=== PATIENT | male | born 1995 | race Caucasian/White ===

== ENCOUNTER 2017-01-24 22:02 | Emergency (ER) | payer OTHER ==
[2017-01-24 22:08] VITALS: RESP 18
--- NOTE | 2017-01-24 22:29 | ED ---
General Adult HPI - General Chief complaint: Recheck/Abnormal Lab/Rx Stated complaint: RAQUEL Time Seen by Provider: 01/24/17 22:09 Source: patient, RN notes reviewed Mode of arrival: wheelchair Limitations: no limitations - History of Present Illness Initial comments: 21-year-old male presents emergency Department chief complaint of feeling abnormal. Patient states that he smoked marijuana tonight and Since she's had an abnormal feeling. Patient states that he also drinks alcohol with this. Patient states he has smoked marijuana multiple times is never made him feel this way. Patient states just feels as if something is wrong. Patient denies any actual pain. Patient states he is not having any symptoms at time. Patient denies any recent fever, chills, shortness of breath, chest pain, back pain, abdominal pain, nausea vomiting, numbness or tingling, dysuria or hematuria, constipation or diarrhea, headaches or visual changes, or any other current symptoms. - Related Data Home Medications Medication Instructions Recorded Confirmed No Known Home Medications [No 01/24/17 01/24/17 Known Home Medications] Allergies Allergy/AdvReac Type Severity Reaction Status Date / Time No Known Allergies Allergy Verified 01/24/17 22:08 Review of Systems ROS Statement: Those systems with pertinent positive or pertinent negative responses have been documented in the HPI. ROS Other: All systems not noted in ROS Statement are negative. Past Medical History Past Medical History: No Reported History History of Any Multi-Drug Resistant Organisms: None Reported Past Surgical History: Orthopedic Surgery Additional Past Surgical History / Comment(s): ankle Past Psychological History: Depression Smoking Status: Current every day smoker Past Alcohol Use History: Rare Past Drug Use History: Marijuana General Exam Limitations: no limitations General appearance: alert, in no apparent distress Head exam: Present: atraumatic, normocephalic, normal inspection ENT exam: Present: normal exam, mucous membranes moist Neck exam: Present: normal inspection. Absent: tenderness, meningismus, lymphadenopathy Respiratory exam: Present: normal lung sounds bilaterally. Absent: respiratory distress, wheezes, rales, rhonchi, stridor Cardiovascular Exam: Present: regular rate, normal rhythm, normal heart sounds. Absent: systolic murmur, diastolic murmur, rubs, gallop, clicks Neurological exam: Present: alert, oriented X3 Psychiatric exam: Present: normal affect, normal mood Skin exam: Present: warm, dry, intact, normal color. Absent: rash Course Vital Signs 01/24/17 22:05 Temperature 97.0 F L Pulse Rate 79 Respiratory 18 Rate Blood Pressure 131/83 O2 Sat by Pulse 100 Oximetry Medical Decision Making - Medical Decision Making 21-year-old male presents for being high on marijuana. This time patient's drug screen is negative for marijuana. Patient is most likely having adverse reaction to the eye. At this time we did discuss he'll be discharged home. We discussed return parameters and follow-up. We did spiritual counselor on drug abuse. Patient stated he understood he is negative plan. He will be discharged. - Lab Data Lab Results 01/24/17 Range/Units 22:37 Urine Opiates Screen Not Detected (NotDetected) Ur Oxycodone Screen Not Detected (NotDetected) Urine Methadone Screen Not Detected (NotDetected) Ur Propoxyphene Screen Not Detected (NotDetected) Ur Barbiturates Screen Not Detected (NotDetected) U Tricyclic Antidepress Not Detected (NotDetected) Ur Phencyclidine Scrn Not Detected (NotDetected) Ur Amphetamines Screen Not Detected (NotDetected) U Methamphetamines Scrn Not Detected (NotDetected) U Benzodiazepines Scrn Not Detected (NotDetected) Urine Cocaine Screen Not Detected (NotDetected) U Marijuana (THC) Screen Detected H (NotDetected) Disposition Clinical Impression: Cannabis abuse Disposition: HOME SELF-CARE Condition: Stable Instructions: Cannabis Abuse (ED) Additional Instructions: Please use medication as discussed. Please follow up with family doctor if symptoms have not improved over the next two days. Please return to the emergency room if your symptoms increase or worsen or for any other concerns. Referrals: Brigette Glover MD [STAFF PHYSICIAN] - 1-2 days Time of Disposition: 23:20
[2017-01-24 23:28] VITALS: BP 144/87; PULSE 81; TEMP 98.4
== END 2017-01-24 23:29 | disposition home or self-care (01) ==
LOC: EC 22:02
DX: F12.10 Cannabis abuse, uncomplicated (principal); F17.200 Nicotine dependence, unspecified, uncomplicated
CPT/HCPCS: 80306; 99284

== ENCOUNTER 2017-03-01 19:17 | Emergency (ER) | payer OTHER ==
[2017-03-01 19:32] VITALS: BP 127/92; PULSE 63; RESP 18; TEMP 99
[2017-03-01] MEDS ORDERED: SODIUM CHLORIDE 0.9% 1,000 ML IV ONE (19:58)
[2017-03-01] MEDS ORDERED: LORazepam 2 MG/ML SYRINGE IV STA (19:58)
[2017-03-01] MEDS ORDERED: MAG HYDROX/AL HYDROX/SIMETH 30 ML CUP PO PRN (19:58)
--- NOTE | 2017-03-01 20:02 | ED ---
Chest Pain HPI - General Chief Complaint: Chest Pain Stated Complaint: Anxiety Source: patient Mode of arrival: EMS Limitations: no limitations - History of Present Illness Initial Comments: Patient is a 22-year-old male who presents for evaluation for acute chest pain, shortness of breath, nausea, tingling in his upper charities bilaterally. Past medical history as below. Patient states that he's been having several episodes of this for some time now. He does not have a primary care physician which she follows up with. He does not take any medications at home. He describes chest pain as a sharp pain. At the same time he had shortness of breath and difficulty breathing. His significant other at bedside states that he looked like he was having difficulty breathing. Similar to previous episodes in the past but this one is worse. He states that he feels a little bit better upon arrival to the emergency department. No recent long distance travel. No history of DVTs or pulmonary embolisms. No family history of a history of clotting disorders. He smokes cigarettes daily. Also smokes marijuana. No IV drug use. At this time he denies fever, chills, headache and changes of vision, URI symptoms, vomiting, diarrhea, pain or burning with urination. - Related Data Home Medications Medication Instructions Recorded Confirmed No Known Home Medications [No 01/24/17 03/01/17 Known Home Medications] Allergies Allergy/AdvReac Type Severity Reaction Status Date / Time No Known Allergies Allergy Verified 03/01/17 19:32 Review of Systems ROS Statement: Those systems with pertinent positive or pertinent negative responses have been documented in the HPI. ROS Other: All systems not noted in ROS Statement are negative. Past Medical History Past Medical History: No Reported History Additional Past Medical History / Comment(s): anxiety, adhd History of Any Multi-Drug Resistant Organisms: None Reported Past Surgical History: Orthopedic Surgery Additional Past Surgical History / Comment(s): ankle Past Psychological History: Depression Smoking Status: Current every day smoker Past Alcohol Use History: Rare Past Drug Use History: Marijuana General Exam Limitations: no limitations General appearance: alert, in no apparent distress, other (No acute distress. Nontoxic appearing) Head exam: Present: atraumatic, normocephalic, normal inspection Eye exam: Present: normal appearance, PERRL, EOMI. Absent: scleral icterus, conjunctival injection, periorbital swelling ENT exam: Present: normal exam, mucous membranes moist Neck exam: Present: normal inspection. Absent: tenderness, meningismus, lymphadenopathy Respiratory exam: Present: normal lung sounds bilaterally, other (Clear bilaterally without wheezes rales or rhonchi. No conversational dyspnea. No hypoxia. No tachypnea.). Absent: respiratory distress, wheezes, rales, rhonchi , stridor Cardiovascular Exam: Present: regular rate, normal rhythm, normal heart sounds. Absent: systolic murmur, diastolic murmur, rubs, gallop, clicks GI/Abdominal exam: Present: soft, normal bowel sounds. Absent: distended, tenderness, guarding, rebound, rigid Extremities exam: Present: normal inspection, full ROM, normal capillary refill. Absent: tenderness, pedal edema, joint swelling, calf tenderness Back exam: Present: normal inspection Neurological exam: Present: alert, oriented X3, CN II-XII intact Psychiatric exam: Present: normal affect, normal mood Skin exam: Present: warm, dry, intact, normal color. Absent: rash Course Vital Signs 03/01/17 19:28 Temperature 99 F Pulse Rate 63 Respiratory 18 Rate Blood Pressure 127/92 O2 Sat by Pulse 98 Oximetry Chest Pain [facility] 1945: Patient is a 22-year-old male percents for evaluation for chest pain, tingling in his upper extremities, wheeziness was stomach, shortness of breath. Has had episodes of this in the past. States that when he has been evaluated in the past nothing he has been wrong. He has never had a formal workup before in the past. PERC negative. However, the patient is very concerned. Requesting blood work and further investigation. Will order basic labs with a syncopal troponin, d-dimer, EKG, chest x-ray, Maalox, 1 mg IV Ativan. 2014: Reviewed EKG. Normal sinus rhythm at 60. AR 184. QRS 112. QTc 424. First-degree AV block. No STEMI. No previous EKGs for comparison. Awaiting labs. 2144: Reviewed laboratory studies. Within normal limits aside of mild acute kidney injury. Received IV fluids. Reevaluated the patient and he states that his chest pain is completely resolved. He states he feels more relaxed and comfortable discharge home. Patient is a low risk chest pain. His heart score is 0. VSS. Encouraged close follow-up with his primary care physician. Possibility of further testing. At this time, do not feel comfortable discharging him home with any anxiolytics. Encouraged him to send a dark room and deep breathing if he feels anxious. Voiced understanding. Discussed specific signs and symptoms on when to return to the emergency department for further evaluation. Comfortable discharge home and will follow-up. Disposition Clinical Impression: Chest pain Disposition: HOME SELF-CARE Condition: Good Instructions: Chest Pain (ED), Anxiety (ED) Referrals: None,Stated [Primary Care Provider] - 1-2 days Merrill Clark MD [REFERRING] - 1-2 days
[2017-03-01 20:27] LABS: Basophils % (A) 1 %; CH 33.2; CHCM 35.7; Eosinophils # (A) 0.1 k/uL (0-0.7); Eosinophils % (A) 2 %; HCT 46.3 % (39.0-53.0); HGB 15.9 gm/dL (13.0-17.5); Luc # (Auto) 0.11; Luc % (Auto) 2; Lymphocytes # (A) 2.2 k/uL (1.0-4.8); Lymphocytes % (A) 36 %; MCHC 34.3 g/dL (31.0-37.0); MCV 93.3 fL (80.0-100.0); Mean Platelet Volume 7.6; Monocytes # (A) 0.4 k/uL (0-1.0); Monocytes % (A) 6 %; Neutrophils # (A) 3.2 k/uL (1.3-7.7); Neutrophils % (A) 54 %; RBC 4.96 m/uL (4.30-5.90); RDW 13.9 % (11.5-15.5); WBC (Perox) 5.85
[2017-03-01 20:37] LABS: ALT 27 U/L (21-72); AST 26 U/L (17-59); Alkaline Phosphatase 75 U/L (38-126); Anion Gap 7 mmol/L; Blood Urea Nitrogen 19 mg/dL (9-20); Calcium 9.4 mg/dL (8.4-10.2); Carbon Dioxide 28 mmol/L (22-30); Chloride 105 mmol/L (98-107); Glucose 81 mg/dL (74-99); Non-African American GFR(MDRD) >60 (>60 ml/min/1.73 sqM); Potassium 3.9 mmol/L (3.5-5.1); Sodium 140 mmol/L (137-145); Total Bilirubin 0.3 mg/dL (0.2-1.3); Total Protein 6.7 g/dL (6.3-8.2)
--- NOTE | 2017-03-01 20:42 | XR ---
EXAMINATION TYPE: XR chest 1V portable DATE OF EXAM: 03/01/2017 COMPARISON: NONE HISTORY: Short of breath TECHNIQUE: Single frontal view of the chest is obtained. FINDINGS: Heart and mediastinum are normal. Lungs are clear. Diaphragm is normal. There are chest le ads. Bony thorax appears normal. IMPRESSION: Normal chest
== END 2017-03-01 21:54 | disposition home or self-care (01) ==
LOC: EC 19:17
DX: R07.9 Chest pain, unspecified (principal); R06.02 Shortness of breath; R11.0 Nausea; F17.200 Nicotine dependence, unspecified, uncomplicated
CPT/HCPCS: 99285; 96374; 36415; 93005; 85379; 80053; 84484; 85025; 71010; J2060

== ENCOUNTER 2017-08-31 14:33 | Emergency (ER) | payer OTHER ==
[2017-08-31 15:08] VITALS: TEMP 97.9
--- NOTE | 2017-08-31 17:17 | ED ---
Chest Pain HPI - General Chief Complaint: Chest Pain Stated Complaint: RAQUEL, CP Time Seen by Provider: 08/31/17 17:03 Source: patient Mode of arrival: ambulatory Limitations: no limitations - History of Present Illness Initial Comments: 22-year-old male patient presented to the emergency department today for evaluation of left-sided chest pain. Patient states that he has been having intermittent episodes of left-sided sharp and burning chest pain for the last 4- 5 months. He states that today the pain has been more constant. He states he does feel short of breath with these episodes. He states the pain is worse when he leans forward. He denies any nausea, vomiting, or sweats. States he does have a history of anxiety and has had "heartburn" in the past however this feels different than both of those things. He denies any radiation of the pain into his back. He states he does smoke cigarettes. He denies any alcohol or drug use. Patient denies any recent rash, fever, chills, abdominal pain, diarrhea, constipation, back pain, numbness, tingling, dizziness, weakness, hematuria, dysuria, urinary urgency, urinary frequency, headache, visual changes , or any other complaints. - Related Data Home Medications Medication Instructions Recorded Confirmed No Known Home Medications [No 01/24/17 08/31/17 Known Home Medications] Allergies Allergy/AdvReac Type Severity Reaction Status Date / Time No Known Allergies Allergy Verified 08/31/17 17:09 Review of Systems ROS Statement: Those systems with pertinent positive or pertinent negative responses have been documented in the HPI. ROS Other: All systems not noted in ROS Statement are negative. EKG Findings - EKG Comments: EKG Findings:: EKG obtained at 1804 shows sinus bradycardia with an incomplete right bundle branch block. Ventricular rate 59, parent of 204, QRS duration 116 , QTC 414, QTC 409. No evidence of ST elevation or depression. Did compare to an EKG obtained on 03/01/2017, changes appear to be chronic. Past Medical History Past Medical History: No Reported History Additional Past Medical History / Comment(s): anxiety, adhd History of Any Multi-Drug Resistant Organisms: None Reported Past Surgical History: Orthopedic Surgery Additional Past Surgical History / Comment(s): ankle Past Psychological History: Anxiety, Depression, Panic Disorder Smoking Status: Current every day smoker Past Alcohol Use History: Occasional Past Drug Use History: Marijuana General Exam Limitations: no limitations General appearance: alert, in no apparent distress, other (Physical well- developed, well-nourished adult male patient in no acute distress. Vital signs upon presentation are temperature 97.9F, pulse 71, respirations 18, blood pressure 124/86, pulse ox 97% on room air.) Eye exam: Present: normal appearance, PERRL, EOMI. Absent: scleral icterus, conjunctival injection, periorbital swelling ENT exam: Present: normal exam, normal oropharynx, mucous membranes moist Respiratory exam: Present: normal lung sounds bilaterally. Absent: respiratory distress, wheezes, rales, rhonchi, stridor, chest wall tenderness Cardiovascular Exam: Present: regular rate, normal rhythm, normal heart sounds. Absent: systolic murmur, diastolic murmur, rubs, gallop, clicks GI/Abdominal exam: Present: soft, normal bowel sounds. Absent: distended, tenderness, guarding, rebound, rigid Neurological exam: Present: alert, oriented X3, CN II-XII intact Psychiatric exam: Present: normal affect, normal mood Skin exam: Present: warm, dry, intact, normal color. Absent: rash Course Vital Signs 08/31/17 15:05 Temperature 97.9 F Pulse Rate 71 Respiratory 18 Rate Blood Pressure 124/86 O2 Sat by Pulse 97 Oximetry Chest Pain [facility]:Two-view x-ray of the chest shows a heart and mediastinum are normal. Lungs are clear. Diaphragm is normal. Bony thorax appears normal. Impression by Dr. Anderson shows normal chest with no change. MDM: Is a 22-year-old male patient consented to the emergency department today for evaluation of left-sided chest pain for the last 4-5 months. Physical examination is unremarkable. There is no chest wall tenderness. Chest x-ray is normal with no acute cardiopulmonary process. EKG was obtained and showed sinus bradycardia with an incomplete right bundle branch block, changes appeared consistent with an EKG obtained at 2017. I did discuss findings with the patient. I discussed the importance of close follow-up. He is instructed follow up with Dr. Duncan discussed possible cardiology referral. He is instructed to return here immediately for any new, worsening, or concerning symptoms. He verbalizes understanding and agrees with this plan. Disposition Clinical Impression: Chest pain Disposition: HOME SELF-CARE Condition: Good Instructions: Chest Pain (ED) Additional Instructions: Follow-up with your primary care physician for further evaluation. Discuss referral to cardiology for further workup including echocardiogram. Return here immediately for any new, worsening, or concerning symptoms. Referrals: Coreen Duncan MD [Primary Care Provider] - 1-2 days Time of Disposition: 18:20
[2017-08-31] MEDS: KETOROLAC 30 MG/ML 1 ML VIAL IM STA ×2 (18:01→18:02)
[2017-08-31] MEDS ORDERED: IBUPROFEN 600 MG TAB PO STA (18:04)
--- NOTE | 2017-08-31 18:16 | XR ---
EXAMINATION TYPE: XR chest 2V DATE OF EXAM: 08/31/2017 COMPARISON: 03/01/2017 HISTORY: Chest pain TECHNIQUE: Frontal and lateral views of the chest are obtained. FINDINGS: Heart and mediastinum are normal. Lungs are clear. Diaphragm is normal. Bony thorax appear s normal. IMPRESSION: Normal chest. No change.
[2017-08-31 18:25] VITALS: RESP 16
[2017-08-31 18:50] VITALS: BP 150/73; PULSE 80
== END 2017-08-31 18:40 | disposition home or self-care (01) ==
LOC: EC 14:33
DX: R07.9 Chest pain, unspecified (principal); R06.02 Shortness of breath; R00.1 Bradycardia, unspecified; I45.10 Unspecified right bundle-branch block; F17.200 Nicotine dependence, unspecified, uncomplicated; Z53.29 Procedure and treatment not carried out because of patient's decision for other reasons
CPT/HCPCS: 71046; 93005; 99285

== ENCOUNTER 2018-04-13 13:26 | Emergency (ER) | payer OTHER ==
[2018-04-13] MEDS ORDERED: AZITHROMYCIN 500 MG TAB PO STA (14:05)
[2018-04-13] MEDS ORDERED: cefTRIAXone 250 MG VIAL IM STA (14:05)
[2018-04-13] MEDS ORDERED: EMTRICITABINE/TENOFOVIR (TDF) 1 EACH, RALTEGRAVIR POTASSIUM 400 MG PO ONE ×2 (14:06)
--- NOTE | 2018-04-13 14:46 | ED ---
Male Urogenital HPI - General Chief complaint: Urogenital Stated complaint: Poss STD exposure Time Seen by Provider: 04/13/18 13:46 Source: patient, RN notes reviewed, old records reviewed Mode of arrival: ambulatory Limitations: no limitations - History of Present Illness Initial comments: This Patient is a 23-year-old male presents emergency department today with chief complaint urine for sexually transmitted infections. Patient warts had intercourse with somebody that he her has HIV 3 days ago. He's been concerns about that time. He states these symptoms including dysuria or hematuria. He reports he has no lesions over his scrotum or penis. Patient states that he has had no fevers or chills. She reports his research post exposure prophylaxis and is carious and would like to be started on medications to prevent HIV. - Related Data Previous Rx's Medication Instructions Recorded Emtricitabine/Tenofovir (Tdf) 1 tab PO DAILY #28 tab 04/13/18 [Truvada 200 mg-300 mg Tablet] Raltegravir Potassium [Isentress] 400 mg PO Q12H #56 tab 04/13/18 Allergies Allergy/AdvReac Type Severity Reaction Status Date / Time No Known Allergies Allergy Verified 08/31/17 17:09 Review of Systems ROS Statement: Those systems with pertinent positive or pertinent negative responses have been documented in the HPI. ROS Other: All systems not noted in ROS Statement are negative. Past Medical History Past Medical History: No Reported History Additional Past Medical History / Comment(s): anxiety, adhd History of Any Multi-Drug Resistant Organisms: None Reported Past Surgical History: Orthopedic Surgery Additional Past Surgical History / Comment(s): ankle Past Psychological History: Anxiety, Depression, Panic Disorder Smoking Status: Current every day smoker Past Alcohol Use History: Occasional Past Drug Use History: None Reported, Marijuana General Exam - General Exam Comments Initial Comments: Patient is a 23-year-old male. Presents emergency room today. He is alert and oriented. Appears in no acute distress. Limitations: no limitations General appearance: alert, in no apparent distress Head exam: Present: atraumatic, normocephalic, normal inspection Eye exam: Present: normal appearance, PERRL, EOMI. Absent: scleral icterus, conjunctival injection, periorbital swelling ENT exam: Present: normal exam, mucous membranes moist Neck exam: Present: normal inspection. Absent: tenderness, meningismus, lymphadenopathy Respiratory exam: Present: normal lung sounds bilaterally. Absent: respiratory distress, wheezes, rales, rhonchi, stridor Cardiovascular Exam: Present: regular rate, normal rhythm, normal heart sounds. Absent: systolic murmur, diastolic murmur, rubs, gallop, clicks GI/Abdominal exam: Present: soft, normal bowel sounds. Absent: distended, tenderness, guarding, rebound, rigid Extremities exam: Present: normal inspection, full ROM, normal capillary refill. Absent: tenderness, pedal edema, joint swelling, calf tenderness Back exam: Present: normal inspection Neurological exam: Present: alert, oriented X3, CN II-XII intact Psychiatric exam: Present: normal affect, normal mood Skin exam: Present: warm, dry, intact, normal color. Absent: rash Course Vital Signs 04/13/18 04/13/18 13:37 15:00 Temperature 98.3 F 97.9 F Pulse Rate 79 60 Respiratory 18 20 Rate Blood Pressure 128/84 147/89 O2 Sat by Pulse 100 100 Oximetry Medical Decision Making - Medical Decision Making 33-year-old male presents restaurant today concern for STD exposure. Is concerned that he may have HIV. He reports he had sexual intercourse with somebody is heard in the past that HIV. Patient at this and denies any pain with urination or other symptoms. Like to be treated for all STDs this time. Urinalysis was reviewed and normal. He is quite adamant. Discussed the Patient Rocephin and azithromycin this time she over chlamydia and gonorrhea. Chlamydia and gonorrhea cultures are pending. He also requested a chest x-ray to be in syphilis. Discussed these are send out labs. I also discussed that we do start the Patient on post exposure prophylaxis that he would need to take the medication daily for a month and half follow-up with her infectious disease doctor. Patient agrees. I did give the Patient initials of Truvada and Isentress. Patient given a month's supply and discussed following up with Dr. Borrero. Patient agrees to treatment plan and will comply. Return parameters were discussed. - Lab Data Lab Results 04/13/18 04/13/18 04/13/18 Range/Units 14:15 14:15 14:15 Urine Color Light Yellow Urine Appearance Clear (Clear) Urine pH 7.0 (5.0-8.0) Ur Specific [place] 1.009 (1.001-1.035) Urine Protein Negative (Negative) Urine Glucose (UA) Negative (Negative) Urine Ketones Negative (Negative) Urine Blood Negative (Negative) Urine Nitrite Negative (Negative) Urine Bilirubin Negative (Negative) Urine Urobilinogen <2.0 (<2.0) mg/dL Ur Leukocyte Esterase Negative (Negative) Treponema pallidum Ab Non-Reactive (Non-Reactive) HIV-1 Antibody Non-Reactive (Non-Reactive) HIV Ag/Ab Interpret HIV p24 Antibody Non-Reactive (Non-Reactive) HIV-2 Antibody Non-Reactive (Non-Reactive) HIV P24 Antigen Non-Reactive (Non-Reactive) Disposition Clinical Impression: Concern about STD in male without diagnosis Disposition: HOME SELF-CARE Condition: Good Instructions: HIV Transmission (ED), Postexposure Prophylaxis (ED) Additional Instructions: Patient has a follow-up with health department and infectious disease doctor for retesting in approximately 1 month. Take medications daily. There is any lesions or any other concerning signs or symptoms to return to emergency department for reevaluation. Prescriptions: Emtricitabine/Tenofovir (Tdf) [Truvada 200 mg-300 mg Tablet] 1 tab PO DAILY #28 tab Raltegravir Potassium [Isentress] 400 mg PO Q12H #56 tab Is patient prescribed a controlled substance at d/c from ED?: No Referrals: None,Stated [Primary Care Provider] - 1-2 days Johnathan Borrero MD [STAFF PHYSICIAN] - 1-2 days Time of Disposition: 14:46
[2018-04-13 14:54] LABS: Appearance,Urine Clear (Clear); Bilirubin,Urine Negative (Negative); Blood,Urine Negative (Negative); Color,Urine Light Yellow; Glucose,Urine (UA) Negative (Negative); Ketones,Urine Negative (Negative); Leukocyte Esterase,Urine Negative (Negative); Nitrite,Urine Negative (Negative); Protein,Urine Negative (Negative); Specific Gravity,Urine 1.009 (1.001-1.035); Urobilinogen,Urine <2.0 mg/dL (<2.0)
[2018-04-13 15:03] VITALS: BP 147/89; PULSE 60; RESP 20; TEMP 97.9
[2018-04-13 23:44] LABS: HIV 1 AB Non-Reactive (Non-Reactive); HIV AB P24 Non-Reactive (Non-Reactive); HIV P24 AG Non-Reactive (Non-Reactive)
[2018-04-14 15:09] LABS: C. trachomatis,PCR Negative (Neg,Equiv); Chlamydia trachomatis Source Urine; N. gonorrhoeae,PCR Negative (Neg,Equiv); Neisseria Source Urine
== END 2018-04-13 15:00 | disposition home or self-care (01) ==
LOC: EC 13:26
DX: Z20.2 Contact with and (suspected) exposure to infections with a predominantly sexual mode of transmission (principal); F17.200 Nicotine dependence, unspecified, uncomplicated
CPT/HCPCS: 36415; 81003; 87491; 87591; 86780; 87086; 87390; 99284; 96372; J0696

== ENCOUNTER 2018-08-03 01:20 | Emergency (ER) | payer OTHER ==
[2018-08-03 01:35] VITALS: PULSE 69
[2018-08-03 04:02] LABS: Appearance,Urine Clear (Clear); Basophils % (A) 1 %; Bilirubin,Urine Negative (Negative); Blood,Urine Negative (Negative); Color,Urine Colorless; Eosinophils # (A) 0.2 k/uL (0-0.7); Eosinophils % (A) 3 %; Glucose,Urine (UA) Negative (Negative); HCT 47.3 % (39.0-53.0); Ketones,Urine Negative (Negative); Leukocyte Esterase,Urine Negative (Negative); Lymphocytes # (A) 2.4 k/uL (1.0-4.8); Lymphocytes % (A) 41 %; MCH 31.3 pg (25.0-35.0); MCHC 33.9 g/dL (31.0-37.0); MCV 92.5 fL (80.0-100.0); Mean Platelet Volume 6.7; Monocytes # (A) 0.3 k/uL (0-1.0); Monocytes % (A) 6 %; Neutrophils # (A) 2.7 k/uL (1.3-7.7); Neutrophils % (A) 47 %; Nitrite,Urine Negative (Negative); PH, Urine 6.5 (5.0-8.0); Platelet Count 198 k/uL (150-450); Protein,Urine Negative (Negative); RBC 5.12 m/uL (4.30-5.90); RDW 12.6 % (11.5-15.5); Specific Gravity,Urine 1.003 (1.001-1.035); Urobilinogen,Urine <2.0 mg/dL (<2.0); WBC 5.7 k/uL (3.8-10.6)
[2018-08-03 04:17] LABS: ALT 26 U/L (21-72); AST 25 U/L (17-59); Albumin 4.6 g/dL (3.5-5.0); Alkaline Phosphatase 58 U/L (38-126); Anion Gap 6 mmol/L; Blood Urea Nitrogen 16 mg/dL (9-20); Calcium 9.9 mg/dL (8.4-10.2); Carbon Dioxide 29 mmol/L (22-30); Chloride 106 mmol/L (98-107); Glucose 87 mg/dL (74-99); Potassium 4.3 mmol/L (3.5-5.1); Sodium 141 mmol/L (137-145); Total Bilirubin 0.5 mg/dL (0.2-1.3); Total Protein 6.7 g/dL (6.3-8.2)
--- NOTE | 2018-08-03 04:56 | ED ---
General Adult HPI - General Chief complaint: Recheck/Abnormal Lab/Rx Stated complaint: Liver issue Time Seen by Provider: 08/03/18 03:23 Source: patient, family Mode of arrival: ambulatory Limitations: no limitations - History of Present Illness Initial comments: This patient is 23-year-old man presenting to be evaluated because he suspects he has hepatitis. The patient lists a number of somewhat generalized complaints but also states that he believes he has symptoms that he read were consistent with liver failure. He had checked the Internet and seeming listed that yellowing of the sclera, redness of the palms, fatigue, abdominal pains, and a number of other symptoms may point towards this. The patient does not have risk factors for liver disease. -: week(s) Consistency: intermittent Improves with: none Worsens with: none - Related Data Home Medications Medication Instructions Recorded Confirmed No Known Home Medications 05/31/18 08/03/18 Allergies Allergy/AdvReac Type Severity Reaction Status Date / Time No Known Allergies Allergy Verified 08/03/18 01:35 Review of Systems ROS Statement: Those systems with pertinent positive or pertinent negative responses have been documented in the HPI. ROS Other: All systems not noted in ROS Statement are negative. Constitutional: Denies: fever, chills Respiratory: Denies: cough, dyspnea Cardiovascular: Denies: chest pain, syncope Endocrine: Reports: fatigue Gastrointestinal: Denies: abdominal pain, nausea, vomiting, diarrhea Genitourinary: Denies: dysuria, hematuria Musculoskeletal: Denies: back pain Skin: Denies: rash Neurological: Denies: headache, weakness, numbness Past Medical History Past Medical History: No Reported History Additional Past Medical History / Comment(s): anxiety, adhd History of Any Multi-Drug Resistant Organisms: None Reported Past Surgical History: Orthopedic Surgery Additional Past Surgical History / Comment(s): ankle Past Psychological History: Anxiety, Depression, Panic Disorder Smoking Status: Current every day smoker Past Alcohol Use History: Occasional Past Drug Use History: None Reported, Marijuana General Exam Limitations: no limitations General appearance: alert, in no apparent distress Head exam: Present: atraumatic, normocephalic Eye exam: Present: normal appearance. Absent: scleral icterus, conjunctival injection ENT exam: Present: normal oropharynx Neck exam: Present: normal inspection Respiratory exam: Present: normal lung sounds bilaterally. Absent: respiratory distress, wheezes, rales, rhonchi, stridor Cardiovascular Exam: Present: regular rate, normal rhythm, normal heart sounds. Absent: systolic murmur, diastolic murmur, rubs, gallop GI/Abdominal exam: Present: soft. Absent: distended, tenderness, guarding, rebound Extremities exam: Present: normal inspection, normal capillary refill. Absent: pedal edema, calf tenderness Back exam: Present: normal inspection. Absent: CVA tenderness (R), CVA tenderness (L) Skin exam: Present: warm, dry, intact, normal color. Absent: rash Course Vital Signs 08/03/18 08/03/18 01:28 05:04 Temperature 97.7 F 98.4 F Pulse Rate 69 69 Respiratory 20 18 Rate Blood Pressure 145/95 123/74 O2 Sat by Pulse 100 99 Oximetry Medical Decision Making - Lab Data Result diagrams: 08/03/18 03:50 08/03/18 03:50 Lab Results 08/03/18 08/03/18 08/03/18 Range/Units 03:50 03:50 03:50 WBC 5.7 (3.8-10.6) k/uL RBC 5.12 (4.30-5.90) m/uL Hgb 16.0 (13.0-17.5) gm/dL Hct 47.3 (39.0-53.0) % MCV 92.5 (80.0-100.0) fL MCH 31.3 (25.0-35.0) pg MCHC 33.9 (31.0-37.0) g/dL RDW 12.6 (11.5-15.5) % Plt Count 198 (150-450) k/uL Neutrophils % 47 % Lymphocytes % 41 % Monocytes % 6 % Eosinophils % 3 % Basophils % 1 % Neutrophils # 2.7 (1.3-7.7) k/uL Lymphocytes # 2.4 (1.0-4.8) k/uL Monocytes # 0.3 (0-1.0) k/uL Eosinophils # 0.2 (0-0.7) k/uL Basophils # 0.0 (0-0.2) k/uL Sodium 141 (137-145) mmol/L Potassium 4.3 (3.5-5.1) mmol/L Chloride 106 (98-107) mmol/L Carbon Dioxide 29 (22-30) mmol/L Anion Gap 6 mmol/L BUN 16 (9-20) mg/dL Creatinine 1.01 (0.66-1.25) mg/dL Est GFR (CKD-EPI)AfAm >90 (>60 ml/min/1.73 sqM) Est GFR (CKD-EPI)NonAf >90 (>60 ml/min/1.73 sqM) Glucose 87 (74-99) mg/dL Calcium 9.9 (8.4-10.2) mg/dL Total Bilirubin 0.5 (0.2-1.3) mg/dL AST 25 (17-59) U/L ALT 26 (21-72) U/L Alkaline Phosphatase 58 (38-126) U/L Total Protein 6.7 (6.3-8.2) g/dL Albumin 4.6 (3.5-5.0) g/dL Urine Color Colorless Urine Appearance Clear (Clear) Urine pH 6.5 (5.0-8.0) Ur Specific [place] 1.003 (1.001-1.035) Urine Protein Negative (Negative) Urine Glucose (UA) Negative (Negative) Urine Ketones Negative (Negative) Urine Blood Negative (Negative) Urine Nitrite Negative (Negative) Urine Bilirubin Negative (Negative) Urine Urobilinogen <2.0 (<2.0) mg/dL Ur Leukocyte Esterase Negative (Negative) Disposition Clinical Impression: Fatigue Disposition: HOME SELF-CARE Condition: Good Instructions: Fatigue (ED) Is patient prescribed a controlled substance at d/c from ED?: No Referrals: None,Stated [Primary Care Provider] - 1-2 days
[2018-08-03 05:05] VITALS: BP 123/74; RESP 18; TEMP 98.4
== END 2018-08-03 05:05 | disposition home or self-care (01) ==
LOC: EC 01:20
DX: R53.83 Other fatigue (principal); F17.200 Nicotine dependence, unspecified, uncomplicated
CPT/HCPCS: 36415; 80053; 81003; 85025; 99283

== ENCOUNTER 2018-09-06 21:34 | Emergency (ER) | payer OTHER ==
[2018-09-06 21:41] VITALS: BP 123/86; PULSE 92; TEMP 98.1
[2018-09-06] MEDS ORDERED: KETOROLAC 60 MG/2 ML VIAL IM STA (21:55)
[2018-09-06 22:14] VITALS: RESP 16
--- NOTE | 2018-09-06 22:23 | XR ---
EXAM: XR Left Ribs and AP Chest, 3 or More Views CLINICAL HISTORY: Pain TECHNIQUE: Frontal and oblique views of the left ribs and frontal view of the chest. COMPARISON: No relevant prior studies available. FINDINGS: Lungs: Unremarkable. No consolidation. Pleural space: Unremarkable. No pneumothorax. Heart: Unremarkable. No cardiomegaly. Mediastinum: Unremarkable. Bones/joints: No acute fracture or traumatic malalignment. IMPRESSION: No acute fracture or traumatic malalignment.
[2018-09-06] MEDS ORDERED: LIDOCAINE 5% PATCH TOPICAL STA (22:38)
--- NOTE | 2018-09-06 22:39 | ED ---
General Adult HPI - General Source: patient, RN notes reviewed, old records reviewed Mode of arrival: ambulatory Limitations: no limitations <Messi Wen - Last Filed: 09/06/18 23:21> <Silva Betancourt - Last Filed: 09/07/18 03:27> - General Chief complaint: Abdominal Pain Stated complaint: Rib injury Time Seen by Provider: 09/06/18 21:43 - History of Present Illness Initial comments: 23-year-old male patient of present past medical history presents to ED after sustaining a acute injury to his left rib region. Patient reports that he was skateboarding, fell on his side on a corner of a ramp. Patient states that he was not traveling at a fast rate of speed when this occurred. Patient denies any trauma to head or neck. Patient denies all other injury. Patient states that he has pain in his left seventh rib region. Patient denies other complaints. Patient able to without difficulty. Systemic: Pt denies fatigue, fever/chills, rash. Pt denies weakness, night sweats, weight loss. Neuro: Pt denies headache, visual disturbances, syncope or pre-syncope. HEENT: Pt denies ocular discharge or irritation, otalgia, rhinorrhea, pharyngitis or notable lymphadenopathy. Cardiopulmonary: Pt denies chest pain, SOB, heart palpitations, dyspnea on exertion. Abdominal/GI: Pt denies abdominal pain, n/v/d. : Pt denies dysuria, burning w/ urination, frequency/urgency. Denies new onset urinary or bowel incontinence. MSK: Pt denies loss of strength or function in extremities. Neuro: Pt denies new onset weakness, paresthesias. (Messi Wen) - Related Data Previous Rx's Medication Instructions Recorded Ibuprofen [Motrin] 600 mg PO Q6HR PRN #40 day 09/06/18 Allergies Allergy/AdvReac Type Severity Reaction Status Date / Time No Known Allergies Allergy Verified 09/06/18 21:52 Review of Systems ROS Other: All systems not noted in ROS Statement are negative. <Messi Wen - Last Filed: 09/06/18 23:21> ROS Other: All systems not noted in ROS Statement are negative. <Silva Betancourt - Last Filed: 09/07/18 03:27> ROS Statement: Those systems with pertinent positive or pertinent negative responses have been documented in the HPI. Past Medical History Past Medical History: No Reported History Additional Past Medical History / Comment(s): anxiety, adhd History of Any Multi-Drug Resistant Organisms: None Reported Past Surgical History: Orthopedic Surgery Additional Past Surgical History / Comment(s): ankle Past Psychological History: Anxiety, Depression, Panic Disorder Smoking Status: Current every day smoker Past Alcohol Use History: Occasional Past Drug Use History: None Reported, Marijuana <Messi Wen - Last Filed: 09/06/18 23:21> General Exam Limitations: no limitations <Messi Wen - Last Filed: 09/06/18 23:21> <Silva Betancourt - Last Filed: 09/07/18 03:27> - General Exam Comments Initial Comments: Constitutional: NAD, AOX3, Pt has pleasant affect. HEENT: NC/AT, trachea midline, neck supple, no lymphadenopathy. Posterior pharynx non erythematous, without exudates. External ears appear normal, without discharge. Mucous membranes moist. Eyes PERRLA, EOM intact. There is no scleral icterus. No pallor noted. Cardiopulmonary: RRR, no murmurs, rubs or gallops, no JVD noted. Lungs CTAB in anterior and posterior troy. No peripheral edema. Abdominal exam: Abdomen soft and non-distended. Abdomen non-tender to palpation in all 4 quadrants. Bowel sounds active in LLQ. No hepatosplenomegaly. No ecchymosis Neuro: CN II-XII grossly intact. No nuchal rigidity. MSK: Left seventh rib mildly tender to palpation. No ecchymoses. No crepitus. No defect noted. No posterior calf tenderness bilaterally, homans sign negative bilaterally. Posterior tibialis and radial pulse +2 bilaterally. Sensation intact in upper and lower extremities. Full active ROM in upper and lower extremities, 5/5 stregnth. (Messi Wen) Vital Signs 09/06/18 09/06/18 21:38 22:10 Temperature 98.1 F Pulse Rate 92 Respiratory 20 16 Rate Blood Pressure 123/86 O2 Sat by Pulse 98 Oximetry Medical Decision Making <Messi Wen - Last Filed: 09/06/18 23:21> <Silva Betancourt - Last Filed: 09/07/18 03:27> - Medical Decision Making 23-year-old male patient of present past medical history presents to ED after sustaining a acute injury to his left rib region. Patient reports that he was skateboarding, fell on his side on a corner of a ramp. Patient states that he was not traveling at a fast rate of speed when this occurred. Patient denies any trauma to head or neck. Patient denies all other injury. Patient states that he has pain in his left seventh rib region. Patient denies other complaints. Pt VSS, afebrile. Physical exam displayed: Lungs CTAB. Abdomen soft and non-distended. Abdomen non-tender to palpation in all 4 quadrants. Bowel sounds active in LLQ. No hepatosplenomegaly. No ecchymosis. Left seventh rib mildly tender to palpation. No ecchymoses. No crepitus. No defect noted. Plain film of left ribs with PA chest x-ray displayed no acute process. No rib fracture or pneumothorax. Pt pain well controlled with toradol. Pt administered lidoderm patch. PT to use ibuprofen for pain as needed. PT to f/u with PCP in 1- 2 days for continued evaluation. Pt to f/u with PCP in 1-2 days. Pt to return to ED if new s/sx develop or if condition worsens in anyway. Case discussed in depth with Dr. Betancourt. (Messi Wen) I was available for consultation in the emergency department. The history and physical exam were done by the midlevel provider. I was consulted for this patient's care. I reviewed the case with the midlevel provider and based on their presentation of the patient, I agree with the assessment, medical decision making and plan of care as documented. (Silva Betancourt) Disposition Is patient prescribed a controlled substance at d/c from ED?: No Time of Disposition: 22:39 <Messi Wen - Last Filed: 09/06/18 23:21> <Silva Betancourt - Last Filed: 09/07/18 03:27> Clinical Impression: Contusion of rib on left side Disposition: HOME SELF-CARE Condition: Stable Instructions (If sedation given, give patient instructions): Rib Contusion (ED) Additional Instructions: Patient to adhere to previously discussed treatment plan and will take medication(s) as directed. Patient to follow up with PCP in 1-2 days. Patient to return to ED if symptoms do not improve. Prescriptions: Ibuprofen [Motrin] 600 mg PO Q6HR PRN #40 day PRN Reason: Pain Referrals: None,Stated [Primary Care Provider] - 1-2 days
== END 2018-09-06 22:52 | disposition home or self-care (01) ==
LOC: EC 21:34
DX: S20.212A Contusion of left front wall of thorax, initial encounter (principal); F17.200 Nicotine dependence, unspecified, uncomplicated; V00.131A Fall from skateboard, initial encounter; Y93.51 Activity, roller skating (inline) and skateboarding
CPT/HCPCS: 71101; 99284; 96372; J1885

== ENCOUNTER 2019-09-29 19:40 | Emergency (ER) | payer OTHER ==
[2019-09-29 19:49] VITALS: BP 136/92; PULSE 69; TEMP 98.1
[2019-09-29 20:04] VITALS: RESP 18
--- NOTE | 2019-09-29 20:05 | ED ---
URI HPI - General Chief Complaint: Upper Respiratory Infection Stated Complaint: Cough Time Seen by Provider: 09/29/19 19:50 Source: patient Mode of arrival: ambulatory Limitations: no limitations - History of Present Illness Initial Comments: Patient is a 24-year-old male presenting to emergency Department with complaints of a cough, runny nose for the past 2 weeks. Patient feels like his symptoms have worsened over the past few days. Patient denies any fever, chills, abdominal pain, nausea, vomiting. He denies any chest pain, shortness of breat h. He denies history of asthma. He denies any recent travel. He has no other complaints at this time. Upon arrival to the ER, his vital signs are stable. - Related Data Previous Rx's Medication Instructions Recorded Ibuprofen [Motrin] 600 mg PO Q6HR PRN #40 day 09/06/18 Azithromycin [Zithromax Z-pack] 0 mg PO DIRECTED #1 pack 09/29/19 Allergies Allergy/AdvReac Type Severity Reaction Status Date / Time No Known Allergies Allergy Verified 10/06/18 10:03 Review of Systems ROS Statement: Those systems with pertinent positive or pertinent negative responses have been documented in the HPI. ROS Other: All systems not noted in ROS Statement are negative. Past Medical History Past Medical History: No Reported History Additional Past Medical History / Comment(s): anxiety, adhd History of Any Multi-Drug Resistant Organisms: None Reported Past Surgical History: Orthopedic Surgery Additional Past Surgical History / Comment(s): ankle Past Psychological History: Anxiety, Depression, Panic Disorder Smoking Status: Current every day smoker Past Alcohol Use History: Occasional Past Drug Use History: None Reported, Marijuana General Exam - General Exam Comments Initial Comments: GENERAL: Well-appearing, well-nourished and in no acute distress. HEAD: Atraumatic, normocephalic. EYES: Pupils equal round and reactive to light, extraocular movements intact, sclera anicteric, conjunctiva are normal. ENT: TMs normal, nares patent, oropharynx clear without exudates. Moist mucous membranes. NECK: Normal range of motion, supple without lymphadenopathy or JVD. LUNGS: Breath sounds clear to auscultation bilaterally and equal. No wheezes rales or rhonchi. HEART: Regular rate and rhythm without murmurs, rubs or gallops. ABDOMEN: Soft, nontender, normoactive bowel sounds. No guarding, no rebound. No masses appreciated. : Deferred EXTREMITIES: Normal range of motion, no pitting or edema. No clubbing or cyanosis. NEUROLOGICAL: Normal speech, normal gait. PSYCH: Normal mood, normal affect. SKIN: Warm, Dry, normal turgor, no rashes or lesions noted. Limitations: no limitations Course Vital Signs 09/29/19 09/29/19 19:47 20:01 Temperature 98.1 F Pulse Rate 69 Respiratory 20 18 Rate Blood Pressure 136/92 O2 Sat by Pulse 100 Oximetry Medical Decision Making - Medical Decision Making Patient is a 24-year-old male presenting with upper respiratory type symptoms 2 weeks, increasing over the past week. Vital signs are stable, afebrile. No recent travel. No fevers. Influenza is negative. Patient's chest x-ray shows no acute findings. I discussed with patient given the length of symptoms I will treat him with azithromycin for a breast dry infection. He is in agreement with this plan of care. Patient is stable for discharge. Return parameters were discussed with the patient and he verbalized understanding. Case discussed with Dr. Swanson. - Lab Data Lab Results 09/29/19 Range/Units 19:57 Influenza Type A RNA Not Detected (Not Detectd) Influenza Type B (PCR) Not Detected (Not Detectd) Disposition Clinical Impression: Upper respiratory tract infection Disposition: HOME SELF-CARE Condition: Stable Instructions (If sedation given, give patient instructions): Upper Respiratory Infection (ED) Additional Instructions: Please return to the Emergency Department if symptoms worsen or any other micah rns. Take and buttock as prescribed. May continue with Motrin as needed for symptom control. Prescriptions: Azithromycin [Zithromax Z-pack] 0 mg PO DIRECTED #1 pack Is patient prescribed a controlled substance at d/c from ED?: No Referrals: None,Stated [Primary Care Provider] - 1-2 days
--- NOTE | 2019-09-29 20:52 | XR ---
EXAMINATION TYPE: XR chest 2V DATE OF EXAM: 09/29/2019 COMPARISON: 10/06/2018 HISTORY: Cough TECHNIQUE: 2 views FINDINGS: Heart and mediastinum are normal. Lungs are clear. Diaphragm is normal. Bony thorax appears normal. IMPRESSION: Normal chest. No change.
== END 2019-09-29 21:01 | disposition home or self-care (01) ==
LOC: EC 19:40
DX: J06.9 Acute upper respiratory infection, unspecified (principal); F17.200 Nicotine dependence, unspecified, uncomplicated
CPT/HCPCS: 71046; 87502; 99283

== ENCOUNTER 2019-10-03 11:54 | Emergency (ER) | payer OTHER ==
[2019-10-03 11:58] VITALS: BP 127/85; PULSE 83; TEMP 97.8
--- NOTE | 2019-10-03 12:37 | ED ---
General Adult HPI - General Chief complaint: Eye Problems Stated complaint: lt eye vision loss Time Seen by Provider: 10/03/19 12:09 Source: patient, RN notes reviewed Mode of arrival: ambulatory Limitations: no limitations - History of Present Illness Initial comments: 24-year-old male with a past medical history of anxiety, depression, panic disorder presents to the emergency department for a chief complaint of visual changes. Patient states that he was driving when he had 1 minute of visual changes. Patient states that he had decreased vision on the nasal aspect of the left eye. States that his vision appeared black. Patient states that his vision returned completely normal about 1 minute later. States he is having completely normal vision at this time.Patient has no other complaints at this time including shortness of breath, chest pain, abdominal pain, nausea or vomiting, headache, or visual changes. - Related Data Previous Rx's Medication Instructions Recorded Ibuprofen [Motrin] 600 mg PO Q6HR PRN #40 day 09/06/18 Azithromycin [Zithromax Z-pack] 0 mg PO DIRECTED #1 pack 09/29/19 Allergies Allergy/AdvReac Type Severity Reaction Status Date / Time No Known Allergies Allergy Verified 10/03/19 11:58 Review of Systems ROS Statement: Those systems with pertinent positive or pertinent negative responses have been documented in the HPI. ROS Other: All systems not noted in ROS Statement are negative. Past Medical History Past Medical History: No Reported History Additional Past Medical History / Comment(s): anxiety, adhd History of Any Multi-Drug Resistant Organisms: None Reported Past Surgical History: Orthopedic Surgery Additional Past Surgical History / Comment(s): ankle Past Psychological History: Anxiety, Depression, Panic Disorder Smoking Status: Current every day smoker Past Alcohol Use History: Occasional Past Drug Use History: None Reported, Marijuana General Exam Limitations: no limitations General appearance: alert, in no apparent distress Head exam: Present: atraumatic, normocephalic, normal inspection Eye exam: Present: normal appearance, PERRL, EOMI, other (All visual troy intact). Absent: scleral icterus, conjunctival injection, periorbital swelling Expanded Eyelids: Normal Inspection: Bilateral Pupils: Regular, Round: Bilateral Sclera/Conjunctival: Normal Inspection: Bilateral Anterior chamber: Normal Inspection: Bilateral Posterior chamber: Normal Inspection: Bilateral Visual acuity (R) = 20/: 20 Visual acuity (L) = 20/: 20 With correction: No IOP (R) in mmH IOP (L) in mmH IOP measured with: [facility] ENT exam: Present: normal exam, mucous membranes moist, normal external ear exam Neck exam: Present: normal inspection, full ROM. Absent: tenderness, meningismus, lymphadenopathy Course Vital Signs 10/03/19 11:55 Temperature 97.8 F Pulse Rate 83 Respiratory 16 Rate Blood Pressure 127/85 O2 Sat by Pulse 100 Oximetry Medical Decision Making - Medical Decision Making Patient presents for resolved visual changes. Vision is completely normal at this time. Vision is 20/20 OD, OS, both eyes. Visual troy are intact bilaterally. Ophthalmic exam is normal. I did ultrasound the eye and I do not see any evidence of retinal detachment. Unfortunately the printer was unable to prevent at that time. Patient again denying any visual symptoms at this time. Discussed case with Dr. Raman. At this time he recommended follow-up with ophthalmology. He was given referral. Discussed returning here for any worsening symptoms or if visual disturbance recurs. Disposition Clinical Impression: Visual disturbance, Normal exam Disposition: HOME SELF-CARE Condition: Good Instructions (If sedation given, give patient instructions): Blurred Vision (ED) Additional Instructions: Please follow up with ophthalmology today or tomorrow. If you have any worsening symptoms or experience additional episodes of visual loss return immediately to the emergency department. Is patient prescribed a controlled substance at d/c from ED?: No Referrals: Merrill Clark MD [REFERRING] - 1-2 days Clementina Briseno MD [STAFF PHYSICIAN] - 1-2 days Time of Disposition: 12:36
[2019-10-03 12:41] VITALS: RESP 20
== END 2019-10-03 12:44 | disposition home or self-care (01) ==
LOC: EC 11:54
DX: Z00.01 Encounter for general adult medical examination with abnormal findings (principal); H53.9 Unspecified visual disturbance; F17.200 Nicotine dependence, unspecified, uncomplicated
CPT/HCPCS: 99283

== ENCOUNTER 2020-05-19 13:21 | Emergency (ER) | payer OTHER ==
[2020-05-19 13:53] VITALS: RESP 18; TEMP 98.3
--- NOTE | 2020-05-19 14:17 | XR ---
EXAMINATION TYPE: XR forearm RT DATE OF EXAM: 05/19/2020 CLINICAL HISTORY: Fall with pain. TECHNIQUE: Two views of the right forearm are obtained. COMPARISON: None. FINDINGS: There is no acute fracture or dislocation seen in the right radius or ulna. The right elb ow and wrist joints appear within normal limits. The overlying soft tissue appears within normal cutler its. IMPRESSION: There is no acute fracture or dislocation seen in the right radius or ulna.
--- NOTE | 2020-05-19 14:39 | ED ---
General Adult HPI - General Chief complaint: Trauma Stated complaint: Nose Injury Time Seen by Provider: 05/19/20 14:26 Source: patient Mode of arrival: ambulatory Limitations: no limitations - History of Present Illness Initial comments: Patient is a 25-year-old male presenting to the emergency department with 2 separate complaints. Patient states he's been having some soreness and pain in his right lower arm that has been ongoing for 2 months. 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 He states he ate is able to have full range of motion of the right elbow and wrist but does have increased pain with twisting, turning, pulling at the sleeve as well as holding a cup in his right hand. He denies any previous fractures or injuries. Patient's other complaint is that yesterday he was drinking and wrestling around with a friend when he hit the bridge of his nose on a couch. Patient states he had bleeding from the nose, significant pain and pain extending into maxillary sinuses. Patient states he did have a previous fracture of his nose when he was about 4 years old. He states it is very tender, he feels like he is congested. He denies having a fever, chills and no nausea or vomiting. He has no further complaints at this time. - Related Data Previous Rx's Medication Instructions Recorded Ibuprofen [Motrin] 600 mg PO Q6HR PRN #40 day 09/06/18 Azithromycin [Zithromax Z-pack (6 0 mg PO DIRECTED #1 pack 09/29/19 tabs)] Allergies Allergy/AdvReac Type Severity Reaction Status Date / Time No Known Allergies Allergy Verified 05/19/20 13:52 Review of Systems ROS Statement: Those systems with pertinent positive or pertinent negative responses have been documented in the HPI. ROS Other: All systems not noted in ROS Statement are negative. Past Medical History Past Medical History: No Reported History Additional Past Medical History / Comment(s): anxiety, adhd History of Any Multi-Drug Resistant Organisms: None Reported Past Surgical History: Orthopedic Surgery Additional Past Surgical History / Comment(s): ankle Past Psychological History: Anxiety, Depression, Panic Disorder Smoking Status: Current every day smoker Past Alcohol Use History: Occasional Past Drug Use History: Marijuana General Exam - General Exam Comments Initial Comments: GENERAL: Patient is well-developed and well-nourished. Patient is nontoxic and in no acute distress. HEAD: Atraumatic, normocephalic. EYES: Pupils equal round and reactive to light, extraocular movements intact, sclera anicteric, conjunctiva are normal. Eyelids were unremarkable. ENT: TMs normal, nares patent, oropharynx clear without exudates. Moist mucous membranes. Patient has significant bruising of the bridge of the nasal bone, there is swelling to the area, pain to palpation. He also has pain with palpation along the distal orbit on both sides. NECK: Normal range of motion, supple without lymphadenopathy or JVD. LUNGS: Unlabored respirations. Breath sounds clear to auscultation bilaterally and equal. No wheezes rales or rhonchi. HEART: Regular rate and rhythm without murmurs, rubs or gallops. ABDOMEN: Soft, nontender, normoactive bowel sounds. No guarding, no rebound. No masses appreciated. : Deferred MUSCULOSKELETAL: Patient has mild pain to palpation of the right forearm extensors, he does have full range of motion of the right upper extremity, strength is 5 out of 5. No pitting or edema. No clubbing or cyanosis. NEUROLOGICAL: Patient is alert and oriented x 3. Motor and sensory are also intact. Cranial nerves II through XII grossly intact. Symmetrical smile. Normal speech, normal gait. PSYCH: Normal mood, normal affect. SKIN: Warm, Dry, normal turgor, no rashes or lesions noted. Limitations: no limitations Course Vital Signs 05/19/20 05/19/20 05/19/20 13:49 14:52 15:23 Temperature 98.3 F 98.3 F Pulse Rate 78 67 Respiratory 18 18 18 Rate Blood Pressure 127/80 120/82 O2 Sat by Pulse 99 99 Oximetry Medical Decision Making - Medical Decision Making Patient is a 25-year-old male here for pain in his right forearm 2 months as well as nasal bone and facial pain since last night after hitting his nose on a couch. X-rays of his right arm show no acute fractures dislocations. Discussed this is most likely an overuse injury. I recommended ice to the area, compression, gentle massage and limiting repetitive activities with the right forearm. Did do a CT of the facial bones which show no acute fractures. I discussed with patient as well as likely a contusion. He can apply ice the area, ibuprofen for discomfort. Patient is in agreement with this plan of care. He is stable for discharge. If symptoms persist he can follow up with his PCP. Disposition Clinical Impression: Contusion of nose, Tendinitis of right forearm Disposition: HOME SELF-CARE Condition: Stable Instructions (If sedation given, give patient instructions): Nasal Contusion (ED) Additional Instructions: Please return to the Emergency Department if symptoms worsen or any other concerns. Apply ice the area, ibuprofen for discomfort. Is patient prescribed a controlled substance at d/c from ED?: No Referrals: None,Stated [Primary Care Provider] - 1-2 days
--- NOTE | 2020-05-19 14:58 | CT ---
EXAMINATION TYPE: CT facial bones wo con DATE OF EXAM: 05/19/2020 COMPARISON: None. HISTORY: pt hit his nose on the couch/pain / swelling CT DLP: 380.8 mGycm. Automated Exposure Control for Dose Reduction was Utilized. TECHNIQUE: CT scan of the facial bones are performed without contrast. FINDINGS: The mandible is intact. The temporomandibular joints are maintained bilaterally. Nasal bone s are intact. Orbital floors and al are intact. The globes are intact bilaterally. Intraconal fat is preserved bilaterally. Zygomatic arches are intact. The pterygoid plates are intact. The maxilla i s intact. Paranasal sinuses are grossly clear. Parapharyngeal fat spaces are maintained. IMPRESSION: No acute displaced facial bone fracture.
[2020-05-19 15:24] VITALS: BP 120/82; PULSE 67
== END 2020-05-19 15:23 | disposition home or self-care (01) ==
LOC: EC 13:21
DX: S00.33XA Contusion of nose, initial encounter (principal); M67.88 Other specified disorders of synovium and tendon, other site; F17.200 Nicotine dependence, unspecified, uncomplicated; W22.03XA Walked into furniture, initial encounter; Y93.72 Activity, wrestling; Y92.89 Other specified places as the place of occurrence of the external cause
CPT/HCPCS: 70486; 99284

== ENCOUNTER 2020-05-24 22:41 | Inpatient (IN) | payer OTHER ==
--- NOTE | 2020-05-24 23:15 | ED ---
Psych HPI - General Source: patient Mode of arrival: ambulatory <Silva Betancourt - Last Filed: 05/25/20 07:26> <Escobar Trevino - Last Filed: 05/25/20 14:40> - General Chief Complaint: Psychiatric Symptoms Stated Complaint: mental health Time Seen by Provider: 05/24/20 22:42 - History of Present Illness Initial Comments: [place] 5-year-old male with a history of depression and anxiety who presents to the ER today via EMS for evaluation of overdose depression and suicidal thoughts. Patient states that he was recently prescribed Celexa and Klonopin by primary care office. He states that he was told to take about a week for the Celexa to help but it's not helping. He states that tonight he was feeling depressed, he took 6 of his 0.5 mg Klonopin and approximately 2 hours later took 6 more and to Celexa. According to law enforcement the patient had sent a picture of himself with all the pills in his mouth to a friend who contacted law enforcement. Law enforcement reports that they knocked on the door of his apartment, they can see him sleeping on the couch but did not awaken by knocking and had to forced entry into his home. They were able to wake him with shaking him, he was alert and oriented and transferred to hospital via EMS. Of note the patient did have his daughter sleeping on the couch with him when he had this overdose. (Silva Betancourt) - Related Data Home Medications Medication Instructions Recorded Confirmed Citalopram Hydrobromide 20 mg PO DAILY 05/25/20 05/25/20 [Citalopram HBr] clonazePAM [KlonoPIN] 0.25 - 0.5 mg PO DAILY PRN 05/25/20 05/25/20 Allergies Allergy/AdvReac Type Severity Reaction Status Date / Time No Known Allergies Allergy Verified 05/25/20 13:39 Review of Systems ROS Other: All systems not noted in ROS Statement are negative. <Silva Betancourt - Last Filed: 05/25/20 07:26> ROS Other: All systems not noted in ROS Statement are negative. <Escobar Trevino - Last Filed: 05/25/20 14:40> ROS Statement: Those systems with pertinent positive or pertinent negative responses have been documented in the HPI. Past Medical History Past Medical History: No Reported History Additional Past Medical History / Comment(s): anxiety, adhd History of Any Multi-Drug Resistant Organisms: None Reported Past Surgical History: Orthopedic Surgery Additional Past Surgical History / Comment(s): ankle Past Psychological History: Anxiety, Depression, Panic Disorder Smoking Status: Current every day smoker Past Alcohol Use History: Occasional Past Drug Use History: Marijuana <Silva Betancourt - Last Filed: 05/25/20 07:26> General Exam Limitations: no limitations <Silva Betancourt - Last Filed: 05/25/20 07:26> - General Exam Comments Initial Comments: Physical Exam GENERAL: Patient is well-developed and well-nourished. Patient is nontoxic and well- hydrated and is in no distress. HENT: Normocephalic, Atraumatic. EYES: PERRL, EOMI PULMONARY: Unlabored respirations. No audible rales rhonchi or wheezing was noted. CARDIOVASCULAR: There is a regular rate and rhythm without any murmurs gallops or rubs. ABDOMEN: Soft and nontender with normal bowel sounds. SKIN: Skin is clear with no lesions or rashes and otherwise unremarkable. : Deferred NEUROLOGIC: Patient is alert and oriented x3. Moving all extremities spontaneously MUSCULOSKELETAL: Normal extremities with adequate strength and full range of motion. No lower extremity swelling or edema. No calf tenderness. PSYCHIATRIC: Normal psychiatric evaluation. (Silva Betancourt) Course Vital Signs 05/24/20 05/25/20 22:44 07:42 Temperature 97.8 F 97.8 F Pulse Rate 59 L 63 Respiratory 18 17 Rate Blood Pressure 137/87 123/74 O2 Sat by Pulse 98 99 Oximetry Medical Decision Making - Lab Data Result diagrams: 05/24/20 22:47 05/24/20 22:47 - EKG Data -: EKG Interpreted by Mi EKG shows normal: sinus rhythm <Silva Betancourt - Last Filed: 05/25/20 07:26> - Lab Data Result diagrams: 05/24/20 22:47 05/24/20 22:47 <Escobar Treivno - Last Filed: 05/25/20 14:40> - Medical Decision Making Patient was seen and evaluated, patient awake alert oriented does not appear to be acutely intoxicated, was petitioned by police for suicidal ideation EKG with no abnormalities Labs were reviewed, patient care was discussed with poison control who recommended repeat EKG which was again unremarkable Medically cleared for evaluation by emergency psychiatric services Patient care signed out to Dr. Trevino at 7 AM pending evaluation by emergency psychiatric services (Silva Betancourt) Patient seen by mental health services with plans for admission. (Escobar Trevino) - Lab Data Lab Results 05/24/20 05/24/20 05/24/20 Range/Units 22:47 22:47 22:47 WBC 5.9 (3.8-10.6) k/uL RBC 4.60 (4.30-5.90) m/uL Hgb 15.2 (13.0-17.5) gm/dL Hct 43.5 (39.0-53.0) % MCV 94.7 (80.0-100.0) fL MCH 33.0 (25.0-35.0) pg MCHC 34.8 (31.0-37.0) g/dL RDW 12.7 (11.5-15.5) % Plt Count 182 (150-450) k/uL Neutrophils % 51 % Lymphocytes % 34 % Monocytes % 9 % Eosinophils % 3 % Basophils % 1 % Neutrophils # 3.0 (1.3-7.7) k/uL Lymphocytes # 2.0 (1.0-4.8) k/uL Monocytes # 0.5 (0-1.0) k/uL Eosinophils # 0.2 (0-0.7) k/uL Basophils # 0.1 (0-0.2) k/uL Sodium 135 L (137-145) mmol/L Potassium 3.8 (3.5-5.1) mmol/L Chloride 106 (98-107) mmol/L Carbon Dioxide 25 (22-30) mmol/L Anion Gap 4 mmol/L BUN 14 (9-20) mg/dL Creatinine 1.03 (0.66-1.25) mg/dL Est GFR (CKD-EPI)AfAm >90 (>60 ml/min/1.73 sqM) Est GFR (CKD-EPI)NonAf >90 (>60 ml/min/1.73 sqM) Glucose 94 (74-99) mg/dL Calcium 9.1 (8.4-10.2) mg/dL Total Bilirubin 0.5 (0.2-1.3) mg/dL AST 28 (17-59) U/L ALT 15 (4-49) U/L Alkaline Phosphatase 66 (38-126) U/L Total Protein 6.0 L (6.3-8.2) g/dL Albumin 3.9 (3.5-5.0) g/dL Urine Color Urine Appearance (Clear) Urine pH (5.0-8.0) Ur Specific [place] (1.001-1.035) Urine Protein (Negative) Urine Glucose (UA) (Negative) Urine Ketones (Negative) Urine Blood (Negative) Urine Nitrite (Negative) Urine Bilirubin (Negative) Urine Urobilinogen (<2.0) mg/dL Ur Leukocyte Esterase (Negative) Salicylates <1.0 mg/dL Urine Opiates Screen Not Detected (NotDetected) Ur Oxycodone Screen Not Detected (NotDetected) Urine Methadone Screen Not Detected (NotDetected) Ur Propoxyphene Screen Not Detected (NotDetected) Acetaminophen <10.0 ug/mL Ur Barbiturates Screen Not Detected (NotDetected) U Tricyclic Antidepress Not Detected (NotDetected) Ur Phencyclidine Scrn Not Detected (NotDetected) Ur Amphetamines Screen Not Detected (NotDetected) U Methamphetamines Scrn Not Detected (NotDetected) U Benzodiazepines Scrn Detected H (NotDetected) Urine Cocaine Screen Not Detected (NotDetected) U Marijuana (THC) Screen Detected H (NotDetected) Serum Alcohol <10 mg/dL 05/24/20 Range/Units 22:47 WBC (3.8-10.6) k/uL RBC (4.30-5.90) m/uL Hgb (13.0-17.5) gm/dL Hct (39.0-53.0) % MCV (80.0-100.0) fL MCH (25.0-35.0) pg MCHC (31.0-37.0) g/dL RDW (11.5-15.5) % Plt Count (150-450) k/uL Neutrophils % % Lymphocytes % % Monocytes % % Eosinophils % % Basophils % % Neutrophils # (1.3-7.7) k/uL Lymphocytes # (1.0-4.8) k/uL Monocytes # (0-1.0) k/uL Eosinophils # (0-0.7) k/uL Basophils # (0-0.2) k/uL Sodium (137-145) mmol/L Potassium (3.5-5.1) mmol/L Chloride (98-107) mmol/L Carbon Dioxide (22-30) mmol/L Anion Gap mmol/L BUN (9-20) mg/dL Creatinine (0.66-1.25) mg/dL Est GFR (CKD-EPI)AfAm (>60 ml/min/1.73 sqM) Est GFR (CKD-EPI)NonAf (>60 ml/min/1.73 sqM) Glucose (74-99) mg/dL Calcium (8.4-10.2) mg/dL Total Bilirubin (0.2-1.3) mg/dL AST (17-59) U/L ALT (4-49) U/L Alkaline Phosphatase (38-126) U/L Total Protein (6.3-8.2) g/dL Albumin (3.5-5.0) g/dL Urine Color Yellow Urine Appearance Clear (Clear) Urine pH 6.5 (5.0-8.0) Ur Specific [place] 1.018 (1.001-1.035) Urine Protein Negative (Negative) Urine Glucose (UA) Negative (Negative) Urine Ketones Negative (Negative) Urine Blood Negative (Negative) Urine Nitrite Negative (Negative) Urine Bilirubin Negative (Negative) Urine Urobilinogen 4.0 (<2.0) mg/dL Ur Leukocyte Esterase Negative (Negative) Salicylates mg/dL Urine Opiates Screen (NotDetected) Ur Oxycodone Screen (NotDetected) Urine Methadone Screen (NotDetected) Ur Propoxyphene Screen (NotDetected) Acetaminophen ug/mL Ur Barbiturates Screen (NotDetected) U Tricyclic Antidepress (NotDetected) Ur Phencyclidine Scrn (NotDetected) Ur Amphetamines Screen (NotDetected) U Methamphetamines Scrn (NotDetected) U Benzodiazepines Scrn (NotDetected) Urine Cocaine Screen (NotDetected) U Marijuana (THC) Screen (NotDetected) Serum Alcohol mg/dL - EKG Data EKG Comments: EKG obtained due to overdose, EKG obtained at 2305 rate is 65 rhythm is sinus with incomplete right dental branch block, FL 168 QRS 114 QTC [address] elevations or depressions no ischemia or infarction. repeat EKG was obtained at 12:59 AM, rate is 51 rhythm is sinus bradycardia, FL mildly prolonged at 178, QRS 114, QTC [address] elevations or depressions no evidence of acute ischemia infarction or arrhythmia. (Silva Betancourt) Disposition <Silva Betancourt - Last Filed: 05/25/20 07:26> Is patient prescribed a controlled substance at d/c from ED?: No Decision Time: 14:40 <Escobar Trevino - Last Filed: 05/25/20 14:40> Clinical Impression: Overdose, Depression, Suicidal ideation Disposition: TRANSFER TO PSYCH HOSP/UNIT Referrals: None,Stated [REFERRING] - 1-2 days
[2020-05-24 23:18] LABS: Basophils # (A) 0.1 k/uL (0-0.2); Basophils % (A) 1 %; Eosinophils # (A) 0.2 k/uL (0-0.7); Eosinophils % (A) 3 %; HCT 43.5 % (39.0-53.0); HGB 15.2 gm/dL (13.0-17.5); Lymphocytes % (A) 34 %; MCHC 34.8 g/dL (31.0-37.0); MCV 94.7 fL (80.0-100.0); Mean Platelet Volume 7.4; Monocytes # (A) 0.5 k/uL (0-1.0); Monocytes % (A) 9 %; Neutrophils % (A) 51 %; Platelet Count 182 k/uL (150-450); RDW 12.7 % (11.5-15.5); WBC 5.9 k/uL (3.8-10.6)
[2020-05-24 23:28] LABS: ALT 15 U/L (4-49); AST 28 U/L (17-59); Acetaminophen <10.0 ug/mL; African American GFR (CKD) >90 (>60 ml/min/1.73 sqM); Albumin 3.9 g/dL (3.5-5.0); Alcohol <10 mg/dL; Alkaline Phosphatase 66 U/L (38-126); Anion Gap 4 mmol/L; Blood Urea Nitrogen 14 mg/dL (9-20); Calcium 9.1 mg/dL (8.4-10.2); Carbon Dioxide 25 mmol/L (22-30); Chloride 106 mmol/L (98-107); Glucose 94 mg/dL (74-99); Non-African American GFR(CKD) >90 (>60 ml/min/1.73 sqM); Potassium 3.8 mmol/L (3.5-5.1); Salicylate <1.0 mg/dL; Sodium 135 mmol/L (137-145); Total Bilirubin 0.5 mg/dL (0.2-1.3)
[2020-05-24 23:45] LABS: Appearance,Urine Clear (Clear); Bilirubin,Urine Negative (Negative); Blood,Urine Negative (Negative); Color,Urine Yellow; Glucose,Urine (UA) Negative (Negative); Ketones,Urine Negative (Negative); Leukocyte Esterase,Urine Negative (Negative); Nitrite,Urine Negative (Negative); PH, Urine 6.5 (5.0-8.0); Protein,Urine Negative (Negative); Specific Gravity,Urine 1.018 (1.001-1.035)
[2020-05-24 23:59] LABS: Amphetamine Screen,Urine Not Detected (NotDetected); Barbiturate Screen,Urine Not Detected (NotDetected); Benzodiazepines Screen,Urine Detected (NotDetected); Cocaine Screen,Urine Not Detected (NotDetected); Methadone Screen, Urine Not Detected (NotDetected); Opiate Screen,Urine Not Detected (NotDetected); Oxycodone Screen, Urine Not Detected (NotDetected); Phencyclidine Screen,Urine Not Detected (NotDetected); Tricyclic Antidepressant,Urine Not Detected (NotDetected); Urn Cannabinoid Scrn Detected (NotDetected)
[2020-05-25] MEDS ORDERED: NICOTINE 21MG/24HR PATCH TRANSDERM STA (07:26)
[2020-05-25] MEDS ORDERED: ACETAMINOPHEN TAB 325 MG TAB PO PRN (15:06)
[2020-05-25] MEDS ORDERED: MAG HYDROX/AL HYDROX/SIMETH 30 ML CUP PO PRN (15:06)
[2020-05-25] MEDS ORDERED: MAGNESIUM HYDROXIDE 2,400 MG/10 ML CUP PO PRN (15:06)
[2020-05-25] MEDS ORDERED: hydrOXYzine HCL 50 MG/ML 1 ML VIAL IM PRN (15:14)
[2020-05-25] MEDS ORDERED: hydrOXYzine pamoate 25 MG CAP PO PRN (15:14)
[2020-05-25] MEDS ORDERED: OLANZapine 5 MG TAB PO PRN (15:16)
[2020-05-25] MEDS ORDERED: OLANZapine 10 MG VIAL IM PRN (15:16)
[2020-05-25 15:57] VITALS: RESP 16
[2020-05-25] MEDS: NICOTINE 21MG/24HR PATCH TRANSDERM SCH (16:47)
--- NOTE | 2020-05-25 21:46 | P.CONS ---
History of Present Illness - Reason for Consult Consult date: 05/25/20 - History of Present Illness The patient is a 25-year-old male with a PMH of marijuana abuse, tobacco abuse, anxiety, depression who was brought into the emergency room after an attempted suicide with overdose. The patient reports that he had recently received Klonopin and Celexa from her physician due to his ongoing anxiety and depression. He reports that the Celexa was not helping and his depression continued to worsen, at which point he decided to take 6 of the 0.5 mg Klonopins. A few minutes later he took 6 of his 20 mg Celexa. He subsequently took a picture with the medications in his mouth and sent them to a friend who contacted the police. As per the documentation, upon arrival, the police could reportedly see the patient from the window though he did not answer his door so they forced their way in and were able to wake him up by shaking him. The patient was subsequently brought into the ED and was admitted to the mental health unit where he was seen and evaluation. EKG in the ED revealed sinus bra dycardia @ [address]/T wave changes noted as reviewed by me. Laboratory evaluation reviewed. The patient notes that he is feeling better now that he slept for a few hours. He denied active complaints. Denied chest pain, SOB, fever, chills, cough, nausea, vomiting, abdominal pain, dizziness, or diarrhea. Review of Systems Pertinent positives and negatives as discussed in HPI, a complete review of systems was performed and all other systems are negative. Past Medical History Past Medical History: No Reported History Additional Past Medical History / Comment(s): anxiety, adhd History of Any Multi-Drug Resistant Organisms: None Reported Past Surgical History: Orthopedic Surgery Additional Past Surgical History / Comment(s): ankle Past Psychological History: Anxiety, Depression, Panic Disorder Smoking Status: Current every day smoker Past Alcohol Use History: Occasional Past Drug Use History: Marijuana Medications and Allergies Home Medications Medication Instructions Recorded Confirmed Type Citalopram Hydrobromide 20 mg PO DAILY 05/25/20 05/25/20 History [Citalopram HBr] clonazePAM [KlonoPIN] 0.25 - 0.5 mg PO DAILY PRN 05/25/20 05/25/20 History Allergies Allergy/AdvReac Type Severity Reaction Status Date / Time No Known Allergies Allergy Verified 05/25/20 13:39 Physical Exam Vitals: Vital Signs Temp Pulse Pulse Resp BP BP Pulse Ox 05/25/20 19:13 98.2 F 05/25/20 15:15 98.7 F 57 L 16 127/78 05/25/20 07:42 97.8 F 63 17 123/74 99 05/24/20 22:44 97.8 F 59 L 18 137/87 98 Intake and Output 05/25/20 05/25/20 05/25/20 06:59 14:59 22:59 Other: Weight 66.82 kg General: non toxic, no distress, appears at stated age, normal weight Derm: no unusual rashes/lesions no unusual ecchymoses, warm, dry Head: atraumatic, normocephalic, symmetric Eyes: EOMI, no lid lag, anicteric sclera, pupils equal round reactive to light ENT: Nose and ears atraumatic, no thrush, no pharyngeal erythema Neck: No thyromegaly, no cervical lymphadenopathy, trachea midline, supple Mouth: no lip lesion, mucus membranes moist Cardiovascular: S1S2 reg, no murmur, positive posterior tibial pulse bilateral, no edema, capillary refill less than 2 seconds Lungs: CTA bilateral, no rhonchi, no rales , no accessory muscle use Abdominal: soft, nontender to palpation, no guarding, no appreciable organomegaly, normal bowel sounds Ext: no gross muscle atrophy, muscle strength 5 out of 5 in all 4 extremities grossly, no contractures, Neuro: CN II-XI grossly intact, light touch intact all 4 extremities, finger to nose within normal limits, Psych: Alert, oriented, appropriate affect Results CBC & Chem 7: 05/24/20 22:47 05/24/20 22:47 Labs: Abnormal Lab Results - Last 24 Hours (Table) 05/24/20 05/24/20 Range/Units 22:47 22:47 Sodium 135 L (137-145) mmol/L Total Protein 6.0 L (6.3-8.2) g/dL U Benzodiazepines Scrn Detected H (NotDetected) U Marijuana (THC) Screen Detected H (NotDetected) Assessment and Plan Plan: Benzodiazepine and SSRI attempted overdose -Continue to monitor for now as SSRIs have very wide therapeutic window -EKGs reviewed -Obtain repeat EKG to confirm that QTc isn't lengthening -As per psychiatry Marijuana and Tobacco abuse -Advised on the importance of cessation Thank you for allowing us to participate in the care of this patient. We will follow peripherally. Do not hesitate to contact us with questions. Someone can be reached from the [facility] hospitalist group at all hours of the day at [phone].
[2020-05-26] MEDS: NICOTINE 21MG/24HR PATCH TRANSDERM SCH ×2 (09:16→18:46)
[2020-05-26] MEDS: CITALOPRAM HYDROBROMIDE 20 MG TAB PO SCH (11:41)
--- NOTE | 2020-05-26 12:04 | P.HP ---
Psychiatric H&P - . H&P Date: 05/26/20 History & Physical: IDENTIFYING DATA: He is a 25-year-old single male admitted to the psychiatric unit following a suicide gesture with prescription medications- clonazepam and citalopram. HISTORY OF PRESENT ILLNESS: The admission was prompted by a text message where he took a picture of himself with tablets of clonazepam and citalopram in his mouth and a text that read "Fuck life." He alleged that the actions were not a suicide attempt. He complained of feeling overwhelmed anxiety and hopeless and wanted to express his distress to his girlfriend.. He "knew" that the amount of both medications were not lethal. He took 3 mg of Klonopin and 40 mg of Celexa. His girlfriend called the police for wellness check after she received a text message. When the police arrived he did not answer the door, they broke into the house and found him asleep on the couch but arousable. He complained of feeling depressed and anxious. He alleged that he has felt depressed and anxious for much of his life beginning in middle school. He de scribed anxiety as a recurrent fear of being judged negatively by other people. He gave several examples where he becomes increasingly anxious and distressed in social situations. He avoids most social encounters and avoidance meeting with new people. When he becomes anxious he is preoccupied with thoughts that he is not as good, not as intelligent and not as successful as others. 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 He feels as though he blinks more often, he avoids eye contact, his legs became to shake and he begins to stutter. 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 He avoids contact with other employees unless it is absolutely essential for his work. He described feelings of depression that fluctuate in intensity. When the depression worsens he feels hopeless and helpless. He described recurrent negative thoughts and harsh self appraisal. He described recurrent wishes that similarly fluctuate with this level of his depression. The idepression is accompanied by other symptoms including poor appetite, restlessness, anhedonia and impaired sleep. He denied experiencing periods of elevated mood or sustained irritability suggestive of riccardo or hypomania. He denied anxiety that builds up a crescendo consistent with panic attacks. He denied obsessions or compulsions. He denied experiencing such psychotic symptoms as hallucinations, paranoia or thought disturbances. He smokes marijuana "occasionally goes" and denied a history of drug use. He drinks one beer "about every other day." PAST PSYCHIATRIC HISTORY: He was diagnosis with ADHD when he was 6 years old and treated with psychostimulants until he was 16 years old. He stopped the psychostimulants because he did not like how they made him feel. He was also engaged with counseling as a child. He denied prior psychiatric hospitalizations. PAST MEDICAL HISTORY: He denied a history of major medical problems. ALLERGIES: No known ALLERGIES SUBSTANCE USE HISTORY: He has a history of an alcohol use problem. He began drinking approximately 3 years ago. At his worse was consuming 1-2 pints of vodka daily. He recognized that he has an alcohol problem and stopped using approximately 2 months ago. He describes alcohol withdrawal symptoms when he stopped using alcohol. He denied a past history of use of drugs other than marijuana. FAMILY PSYCHIATRIC/SUBSTANCE USE HISTORY: He has a strong family history of substance use problems and psychiatric illness. Both his mother and father have substance use issues. His paternal grandfather of a heroin overdose and his grandmother have history of heroin use disorder. SOCIAL HISTORY: His born in [place] and raised by his mother. They moved to [place] after the divorce. He felt anxious in class and difficulty "fitting i n". He left school in ninth grade but received a GED. His one consistent hobby beginning in grade school was skateboarding. He found acceptance and success in the [employer] community. He lives with his long-term girlfriend have a 5-year-old daughter. He is currently employed full-time. MENTAL STATUS EXAM: He presented as a thin almost cachectic appearing male with close cropped hair. He made intermittent eye contact. He had multiple tattoos on his arms and legs in addition to tattoo on his left temporal that read "empty." He had a anxious facial expression. He was alert and oriented to person, place and time. He was restless throughout the interview. His speech was spontaneous with normal rate, rhythm and volume. His affect was anxious. He denied current suicidal ideation, wishes or homicidal ideation. He did not express feelings of hopelessness, helplessness or worthlessness. He ruminated increased anxiety and his persistent difficulties in social support situations. He did not express ideas reference, paranoid ideation or delusions. His thinking was abstract and associations were coherent, logical and goal directed. He denied hallucinations and did not appear to be responding to internal stimuli. Global impression and is average. He is aware of his illness and need for treatment. IMPRESSIONS: He is a 25-year-old single male presented as a psychiatric unit voluntarily after a suicide gesture involving prescription medications. He repeatly denied that he took the additional dose of medications as a suicide attempt and alleged that he knew that the doses were not lethal. 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 He also described a history of social anxiety and social avoidance with symptoms and symptom patterns consistent with a social anxiety disorder. His depression seems related to his anxiety and social avoidance but at times appeared to meet criteria for major depressive disorder. He also has a history of an alcohol use disorder. He should be treated inpatient basis with accommodations psychopharmacology and multimodal therapy. DIAGNOSIS: Suicide gesture, social anxiety disorder, persistent depressive disorder, major depressive disorder recurrent, ADHD, alcohol use disorder and early partial remission, rule out cannabis use disorder RECOMMENDATION: Admit to the psychiatric unit. Safety precautions. Consult medicine for initial physical exam and medical history. bag worker to complete initial psychosocial assessment according to discharge and aftercare services that should involve a referral for individual therapy. Increase citalopram to 40 mg daily. Discontinue clonazepam. Consider a trial of Lyrica for the treatment of social anxiety. Encourage participation in therapeutic groups and activities. Evaluate clinical status response to treatment on a daily basis. Allergies Allergy/AdvReac Type Severity Reaction Status Date / Time No Known Allergies Allergy Verified 05/25/20 13:39 Vital Signs Temp 97.7 F 05/26/20 06:25 Pulse 55 L 05/26/20 06:25 Resp 16 05/26/20 06:25 BP 100/55 05/26/20 06:25 Pulse Ox 99 05/25/20 07:42 Intake & Output 05/25/20 05/26/20 05/26/20 18:59 06:59 18:59 Weight 66.82 kg Laboratory Last Values WBC 5.9 k/uL (3.8-10.6) 05/24/20 22:47 RBC 4.60 m/uL (4.30-5.90) 05/24/20 22:47 Hgb 15.2 gm/dL (13.0-17.5) 05/24/20 22:47 Hct 43.5 % (39.0-53.0) 05/24/20 22:47 MCV 94.7 fL (80.0-100.0) 05/24/20 22:47 MCH 33.0 pg (25.0-35.0) 05/24/20 22:47 MCHC 34.8 g/dL (31.0-37.0) 05/24/20 22:47 RDW 12.7 % (11.5-15.5) 05/24/20 22:47 Plt Count 182 k/uL (150-450) 05/24/20 22:47 Neutrophils % 51 % 05/24/20 22:47 Lymphocytes % 34 % 05/24/20 22:47 Monocytes % 9 % 05/24/20 22:47 Eosinophils % 3 % 05/24/20 22:47 Basophils % 1 % 05/24/20 22:47 Neutrophils # 3.0 k/uL (1.3-7.7) 05/24/20 22:47 Lymphocytes # 2.0 k/uL (1.0-4.8) 05/24/20 22:47 Monocytes # 0.5 k/uL (0-1.0) 05/24/20 22:47 Eosinophils # 0.2 k/uL (0-0.7) 05/24/20 22:47 Basophils # 0.1 k/uL (0-0.2) 05/24/20 22:47 Sodium 135 mmol/L (137-145) L 05/24/20 22:47 Potassium 3.8 mmol/L (3.5-5.1) 05/24/20 22:47 Chloride 106 mmol/L (98-107) 05/24/20 22:47 Carbon Dioxide 25 mmol/L (22-30) 05/24/20 22:47 Anion Gap 4 mmol/L 05/24/20 22:47 BUN 14 mg/dL (9-20) 05/24/20 22:47 Creatinine 1.03 mg/dL (0.66-1.25) 05/24/20 22:47 Est GFR (CKD-EPI)AfAm >90 (>60 ml/min/1.73 sqM) 05/24/20 22:47 Est GFR (CKD-EPI)NonAf >90 (>60 ml/min/1.73 sqM) 05/24/20 22:47 Glucose 94 mg/dL (74-99) 05/24/20 22:47 Calcium 9.1 mg/dL (8.4-10.2) 05/24/20 22:47 Total Bilirubin 0.5 mg/dL (0.2-1.3) 05/24/20 22:47 AST 28 U/L (17-59) 05/24/20 22:47 ALT 15 U/L (4-49) 05/24/20 22:47 Alkaline Phosphatase 66 U/L (38-126) 05/24/20 22:47 Total Protein 6.0 g/dL (6.3-8.2) L 05/24/20 22:47 Albumin 3.9 g/dL (3.5-5.0) 05/24/20 22:47 Triglycerides 81 mg/dL (<150) 05/26/20 07:55 Cholesterol 158 mg/dL (<200) 05/26/20 07:55 LDL Cholesterol, Calc 88 mg/dL (0-99) 05/26/20 07:55 HDL Cholesterol 54 mg/dL (40-60) 05/26/20 07:55 TSH 0.884 mIU/L (0.465-4.680) 05/26/20 07:55 Urine Color Yellow 05/24/20 22:47 Urine Appearance Clear (Clear) 05/24/20 22:47 Urine pH 6.5 (5.0-8.0) 05/24/20 22:47 Ur Specific [place] 1.018 (1.001-1.035) 05/24/20 22:47 Urine Protein Negative (Negative) 05/24/20 22:47 Urine Glucose (UA) Negative (Negative) 05/24/20 22:47 Urine Ketones Negative (Negative) 05/24/20 22:47 Urine Blood Negative (Negative) 05/24/20 22:47 Urine Nitrite Negative (Negative) 05/24/20 22:47 Urine Bilirubin Negative (Negative) 05/24/20 22:47 Urine Urobilinogen 4.0 mg/dL (<2.0) 05/24/20 22:47 Ur Leukocyte Esterase Negative (Negative) 05/24/20 22:47 Salicylates <1.0 mg/dL 05/24/20 22:47 Urine Opiates Screen Not Detected (NotDetected) 05/24/20 22:47 Ur Oxycodone Screen Not Detected (NotDetected) 05/24/20 22:47 Urine Methadone Screen Not Detected (NotDetected) 05/24/20 22:47 Ur Propoxyphene Screen Not Detected (NotDetected) 05/24/20 22:47 Acetaminophen <10.0 ug/mL 05/24/20 22:47 Ur Barbiturates Screen Not Detected (NotDetected) 05/24/20 22:47 U Tricyclic Antidepress Not Detected (NotDetected) 05/24/20 22:47 Ur Phencyclidine Scrn Not Detected (NotDetected) 05/24/20 22:47 Ur Amphetamines Screen Not Detected (NotDetected) 05/24/20 22:47 U Methamphetamines Scrn Not Detected (NotDetected) 05/24/20 22:47 U Benzodiazepines Scrn Detected (NotDetected) H 05/24/20 22:47 Urine Cocaine Screen Not Detected (NotDetected) 05/24/20 22:47 U Marijuana (THC) Screen Detected (NotDetected) H 05/24/20 22:47 Serum Alcohol <10 mg/dL 05/24/20 22:47 05/26/20 11:29
[2020-05-27] MEDS: CITALOPRAM HYDROBROMIDE 20 MG TAB PO SCH (08:50)
--- NOTE | 2020-05-27 11:25 | P.DS ---
Providers Date of admission: 05/25/20 15:02 Attending physician: Johnathan Givens MD Consults: 05/25/20 15:06 Consult Physician Routine Consulting Provider: [facility] Consult Reason/Comments: H&P and medical Do you want consulting provider notified?: Yes Primary care physician: Olamide White - Discharge Diagnosis(es) (1) Suicidal ideation Current Visit: Yes Status: Acute (2) Suicide gesture Current Visit: Yes Status: Acute (3) Major depressive disorder, recurrent, unspecified Current Visit: Yes Status: Acute (4) Social anxiety disorder Current Visit: Yes Status: Acute (5) Alcohol use disorder, severe, in early remission Current Visit: Yes Status: Acute (6) History of ADHD Current Visit: Yes Status: Acute Hospital Course: HISTORY: Appendectomy is a 25-year-old single male admitted to the psychiatric unit voluntarily following a suicide gesture with prescription medications clonazepam and citalopram. he admission was prompted by a text message where he took a picture of himself with tablets of clonazepam and citalopram in his mouth and a text that read "Fuck life." He alleged that the actions were not a suicide attempt. He compla ined of feeling overwhelmed anxiety and hopeless and wanted to express his distress to his girlfriend.. He "knew" that the amount of both medications were not lethal. He took 3 mg of Klonopin and 40 mg of Celexa. His girlfriend called the police for wellness check after she received a text message. When the police arrived he did not answer the door, they broke into the house and found him asleep on the couch but arousable. He complained of feeling depressed and anxious. He alleged that he has felt depressed and anxious for much of his life beginning in middle school. He described anxiety as a recurrent fear of being judged negatively by other people. He gave several examples where he becomes increasingly anxious and distressed in social situations. He avoids most social encounters and avoidance meeting with new people. When he becomes anxious he is preoccupied with thoughts that he is not as good, not as intelligent and not as successful as others. 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 He feels as though he blinks more often, he avoids eye contact, his legs became to shake and he begins to stutter. He is able to maintain employment because of the quality of his work and the company [employer] operator [employer] is willing to accommodate his social avoidance. He avoids contact with other employees unless it is absolutely essential for his work. He described feelings of depression that fluctuate in intensity. When the depression worsens he feels hopeless and helpless. He described recurrent negative thoughts and harsh self appraisal. He described recurrent wishes that similarly fluctuate with this level of his depression. The idepression is accompanied by other symptoms including poor appetite, restlessness, anhedonia and impaired sleep. He is treated by his primary care provider for his depression and anxiety symptoms. He met with a therapist when he was a child but has not met with a psychotherapist regarding his anxiety and depressive symptoms HOSPITAL COURSE: We admitted him to the psychiatric unit voluntarily under the care of this keno writer/runner. We provided a copy is a biopsychosocial assessment. The applications sales consultant riveter automobile brakes completed initial physical exam and medical history and diagnosis of benzodiazepine and SSRI attempted overdose and recommended to monitor EKG. We discussed precipitants for her as a suicide attempt and he concurred with the recommendation for individual therapy. We treated his anxiety complaints with increasing the dose of citalopram 40 mg daily. We recommended to discontinue the benzodiazepine. He posed no management problem had no episodes. Dyscontrol. His mood brightened consistent medially after arrival to the unit. He denied suicidal ideation but complains of persistent anxiety symptoms consistent with a social anxiety disorder. MENTAL STATUS ON DISCHARGE: At time of discharge she presented as a thin c asually groomed 25-year-old male with multiple tattoos. He made eye contact and attended to interview. He had a bright facial expression. He is alert and oriented to person, place and time. He showed no abnormality of psychomotor activity. His speech was spontaneous with normal rate, rhythm and volume. His affect was bright and reactive. He denied suicidal ideation, wishes or homicidal ideation. He denied feeling hopeless, helpless or worthless. He did not express ideas reference, paranoid ideation or delusions. His thinking was abstract and associations were coherent, logical and goal directed. He denied hallucinations and did not appear to be responding to internal stimuli. DISPOSITION: We'll continue citalopram 40 mg daily and refer him to [facility] for outpatient individual therapy and medication management. Patient Condition at Discharge: Stable Plan - Discharge Summary New Discharge Prescriptions: New Citalopram Hydrobromide [CeleXA] 40 mg PO DAILY #30 tab Nicotine 21Mg/24Hr Patch [Habitrol] 1 patch TRANSDERM DAILY #20 patch Continue clonazePAM [KlonoPIN] 0.25 - 0.5 mg PO DAILY PRN PRN Reason: panic attacks Discontinued Citalopram Hydrobromide [Citalopram HBr] 20 mg PO DAILY Discharge Medication List clonazePAM [KlonoPIN] 0.25 - 0.5 mg PO DAILY PRN 05/25/20 [History] Citalopram Hydrobromide [CeleXA] 40 mg PO DAILY #30 tab 05/27/20 [Rx] Nicotine 21Mg/24Hr Patch [Habitrol] 1 patch TRANSDERM DAILY #20 patch 05/27/20 [Rx] Follow up Appointment(s)/Referral(s): None,Stated [REFERRING] - 1-2 days Discharge Disposition: HOME SELF-CARE
[2020-05-27 12:35] VITALS: BP 126/74; PULSE 66; TEMP 97.8
== END 2020-05-27 15:15 | disposition home or self-care (01) | DRG 885 ==
LOC: EC 22:41 → 3MHU 05-25 15:02
PROVIDERS: ADMIT Psychiatry & Neurology Psychiatry; ATTEND Psychiatry & Neurology Psychiatry
DX: F33.9 Major depressive disorder, recurrent, unspecified (principal); R45.851 Suicidal ideations; F10.21 Alcohol dependence, in remission; F17.200 Nicotine dependence, unspecified, uncomplicated; F40.10 Social phobia, unspecified; F41.0 Panic disorder [episodic paroxysmal anxiety]; F90.9 Attention-deficit hyperactivity disorder, unspecified type; F12.10 Cannabis abuse, uncomplicated; T42.4X1A Poisoning by benzodiazepines, accidental (unintentional), initial encounter; T43.221A Poisoning by selective serotonin reuptake inhibitors, accidental (unintentional), initial encounter; Z79.899 Other long term (current) drug therapy; Z90.49 Acquired absence of other specified parts of digestive tract; Z87.19 Personal history of other diseases of the digestive system
CPT/HCPCS: 36415; 80053; 80061; 80306; 80320; 80329; 81003; 82075; 83036; 83520; 84443; 85025; 93005; 99285

== ENCOUNTER 2020-11-09 16:36 | Emergency (ER) | payer SELFPAY ==
[2020-11-09 16:53] VITALS: BP 151/94; PULSE 87; RESP 17; TEMP 99.5
[2020-11-09] MEDS ORDERED: ONDANSETRON 4 MG/2 ML VIAL IVP STA (17:18)
--- NOTE | 2020-11-09 17:28 | XR ---
EXAMINATION TYPE: XR tibia fibula RT DATE OF EXAM: 11/09/2020 COMPARISON: NONE HISTORY: Pain TECHNIQUE: 4 views FINDINGS: I see no fracture nor dislocation. Knee joint and ankle joint appear intact. Joint spaces a re fairly normal. IMPRESSION: Negative right tibia and fibula exam.
--- NOTE | 2020-11-09 17:30 | XR ---
EXAMINATION TYPE: XR knee complete RT DATE OF EXAM: 11/09/2020 COMPARISON: NONE HISTORY: Knee pain TECHNIQUE: 3 views FINDINGS: I see no fracture nor dislocation. Joint spaces are normal. There is no sign of joint effus ion. There are no pathologic calcifications. IMPRESSION: Negative right knee exam.
[2020-11-09] MEDS ORDERED: traMADol 50 MG STARTER PACK 3 TAB BTL PO STA (18:00)
--- NOTE | 2020-11-09 18:00 | ED ---
Lower Extremity Injury HPI - General Chief Complaint: Extremity Injury, Lower Stated Complaint: RT knee injury Time Seen by Provider: 11/09/20 16:39 Source: patient, EMS Mode of arrival: EMS Limitations: no limitations - History of Present Illness Initial Comments: Patient is a 25-year-old male presenting to the emergency department via EMS after he fell while skateboarding injuring his right knee. He received 50 g of fentanyl EMS prior to arrival. He states he feels like he felt a pop of his knee, he is not sure which way it went. He is describing pain in the posterior aspect of his knee as well as on the lateral aspect. He denies any previous injuries or surgeries of his right knee or right extremity. He did not hit his head, he has no further complaints or injuries from this fall. - Related Data Home Medications Medication Instructions Recorded Confirmed clonazePAM [KlonoPIN] 0.25 - 0.5 mg PO DAILY PRN 05/25/20 05/25/20 Previous Rx's Medication Instructions Recorded Citalopram Hydrobromide [CeleXA] 40 mg PO DAILY #30 tab 05/27/20 Nicotine 21Mg/24Hr Patch [Habitrol] 1 patch TRANSDERM DAILY #20 patch 05/27/20 Allergies Allergy/AdvReac Type Severity Reaction Status Date / Time No Known Allergies Allergy Verified 11/09/20 16:53 Review of Systems ROS Statement: Those systems with pertinent positive or pertinent negative responses have been documented in the HPI. ROS Other: All systems not noted in ROS Statement are negative. Past Medical History Past Medical History: No Reported History Additional Past Medical History / Comment(s): anxiety, adhd History of Any Multi-Drug Resistant Organisms: None Reported Past Surgical History: Orthopedic Surgery Additional Past Surgical History / Comment(s): ankle Past Psychological History: Anxiety, Depression, Panic Disorder Smoking Status: Current every day smoker, Vaper Past Alcohol Use History: Daily Past Drug Use History: None Reported General Exam - General Exam Comments Initial Comments: GENERAL: Patient is well-developed and well-nourished. Patient is nontoxic and in no acute distress. HEAD: Atraumatic, normocephalic. No hematoma, no signs of basal skull fracture. EYES: Pupils equal round and reactive to light, extraocular movements intact, sclera anicteric, conjunctiva are normal. Eyelids were unremarkable. ENT: TMs normal, nares patent, oropharynx clear without exudates. Moist mucous membranes. NECK: Normal range of motion, supple without lymphadenopathy or JVD. No midline tenderness. LUNGS: Unlabored respirations. Breath sounds clear to auscultation bilaterally and equal. No wheezes rales or rhonchi. HEART: Regular rate and rhythm without murmurs, rubs or gallops. ABDOMEN: Soft, nontender, normoactive bowel sounds. No guarding, no rebound. No masses appreciated. : Deferred MUSCULOSKELETAL: Patient has pain with palpation of the right lateral knee and posterior aspect. He does have some swelling present on the anterior lateral aspect near the head of the fibula. He is able to actively fully extend the knee with pain, he has about 50 of active flexion. He is neurovascular intact. Able to wiggle his toes, full ankle range of motion. Rest of extremities with adequate strength and normal range of motion, no pitting or edema. No clubbing or cyanosis. NEUROLOGICAL: Patient is alert and oriented x 3. Motor and sensory are also intact. Cranial nerves II through XII grossly intact. Symmetrical smile. Normal speech. PSYCH: Normal mood, normal affect. SKIN: Warm, Dry, normal turgor, no rashes or lesions noted. Limitations: no limitations Course Vital Signs 11/09/20 16:49 Temperature 99.5 F Pulse Rate 87 Respiratory 17 Rate Blood Pressure 151/94 O2 Sat by Pulse 98 Oximetry Medical Decision Making - Medical Decision Making Patient is a 25-year-old male here arriving via EMS after he hurt his right knee after he fell while skateboarding. He does have some swelling present on the anterior lateral aspect near the fibular head. He does have full active extension with pain, about 50 of active flexion. X-rays reveal no acute fracture dislocations of the knee or tib-fib. I discussed with patient that he could have internal derangement such as meniscus injury or injury to the lateral ligaments/hyperextension. I do recommend orthopedic follow-up. I will place him in a knee immobilizer with orthopedic follow-up. I will give him a starter pack of tramadol, recommended alternating Tylenol and Motrin for discomfort as well as ice to the area. He is in agreement with this plan of care and he is stable for discharge. Case discussed with Dr. Trevino. Disposition Clinical Impression: Right knee pain, Internal derangement of right knee Disposition: HOME SELF-CARE Condition: Stable Instructions (If sedation given, give patient instructions): Knee Pain (ED) Additional Instructions: Please return to the Emergency Department if symptoms worsen or any other concerns. Recommend staying in a knee immobilizer until follow-up with orthopedics. Alternate between Tylenol and Motrin for pain control. May take tramadol for severe pain. Apply ice to the area, elevation above the heart for swelling control. Follow-up with orthopedics as discussed. Is patient prescribed a controlled substance at d/c from ED?: No Referrals: None,Stated [Primary Care Provider] - 1-2 days Wilmer Benites MD [STAFF PHYSICIAN] - 1-2 days Time of Disposition: 17:59
== END 2020-11-10 04:06 | disposition home or self-care (01) ==
LOC: EC 16:36
DX: M23.91 Unspecified internal derangement of right knee (principal); V00.131A Fall from skateboard, initial encounter; Y93.51 Activity, roller skating (inline) and skateboarding; F17.200 Nicotine dependence, unspecified, uncomplicated; F32.9 Major depressive disorder, single episode, unspecified
CPT/HCPCS: 73590; 73562; 99283; 96374; L1830; J2405

== ENCOUNTER 2021-06-11 21:55 | Emergency (ER) | payer BC ==
[2021-06-11 22:58] VITALS: RESP 18
[2021-06-12 01:24] VITALS: TEMP 98.7
--- NOTE | 2021-06-12 01:47 | XR ---
EXAMINATION TYPE: XR chest 2V DATE OF EXAM: 06/12/2021 COMPARISON: 09/29/2019 HISTORY: Cough and congestion TECHNIQUE: FINDINGS: Heart and mediastinum are normal. Lungs are clear. Diaphragm is normal. Bony thorax appears normal. IMPRESSION: Normal chest. No change.
[2021-06-12 02:13] LABS: Basophils % (A) 1 %; Eosinophils # (A) 0.2 k/uL (0-0.7); Eosinophils % (A) 2 %; HCT 46.1 % (39.0-53.0); HGB 16.7 gm/dL (13.0-17.5); Hyperchromasia Slight; Lymphocytes # (A) 2.4 k/uL (1.0-4.8); Lymphocytes % (A) 33 %; MCH 32.6 pg (25.0-35.0); MCHC 36.3 g/dL (31.0-37.0); MCV 89.8 fL (80.0-100.0); Mean Platelet Volume 7.6; Monocytes # (A) 0.5 k/uL (0-1.0); Monocytes % (A) 7 %; Neutrophils % (A) 55 %; Platelet Count 211 k/uL (150-450); RBC 5.13 m/uL (4.30-5.90); RDW 11.9 % (11.5-15.5); WBC 7.3 k/uL (3.8-10.6)
[2021-06-12 02:17] LABS: ALT 19 U/L (4-49); AST 32 U/L (17-59); African American GFR (CKD) >90 (>60 ml/min/1.73 sqM); Albumin 4.6 g/dL (3.5-5.0); Alkaline Phosphatase 77 U/L (38-126); Anion Gap 7 mmol/L; Blood Urea Nitrogen 15 mg/dL (9-20); Calcium 9.8 mg/dL (8.4-10.2); Carbon Dioxide 26 mmol/L (22-30); Chloride 103 mmol/L (98-107); Glucose 97 mg/dL (74-99); Lipase 52 U/L (23-300); Magnesium 2.1 mg/dL (1.6-2.3); Non-African American GFR(CKD) >90 (>60 ml/min/1.73 sqM); Sodium 136 mmol/L (137-145); Total Bilirubin 0.5 mg/dL (0.2-1.3); Total Protein 7.3 g/dL (6.3-8.2)
--- NOTE | 2021-06-12 02:20 | ED ---
General Adult HPI - General Chief complaint: Chest Pain Stated complaint: Chest Pain Time Seen by Provider: 06/12/21 00:57 Source: patient Mode of arrival: ambulatory Limitations: no limitations - History of Present Illness Initial comments: 26 year-old male patient presents to the emergency department for evaluation of left sided chest pain. He describes the pain as burning in a localized area just below his left breast. States it radiates to his back. He denies any shortness of breath or cough. Denies any nausea or vomiting. Denies any sweats. States he has had chills. Denies history of cardiac disease personally. States he does have extensive family history of cardiac disease. States he does use a vape pen. Denies smoking. Denies alcohol or drug use. - Related Data Home Medications Medication Instructions Recorded Confirmed clonazePAM [KlonoPIN] 0.25 - 0.5 mg PO DAILY PRN 05/25/20 05/25/20 Previous Rx's Medication Instructions Recorded Citalopram Hydrobromide [CeleXA] 40 mg PO DAILY #30 tab 05/27/20 Nicotine 21Mg/24Hr Patch [Habitrol] 1 patch TRANSDERM DAILY #20 patch 05/27/20 Allergies Allergy/AdvReac Type Severity Reaction Status Date / Time No Known Allergies Allergy Verified 06/11/21 22:58 Review of Systems ROS Statement: Those systems with pertinent positive or pertinent negative responses have been documented in the HPI. ROS Other: All systems not noted in ROS Statement are negative. Past Medical History Past Medical History: No Reported History Additional Past Medical History / Comment(s): anxiety, adhd History of Any Multi-Drug Resistant Organisms: None Reported Past Surgical History: Orthopedic Surgery Additional Past Surgical History / Comment(s): ankle Past Psychological History: Anxiety, Depression, Panic Disorder Smoking Status: Current every day smoker, Vaper Past Alcohol Use History: Daily Past Drug Use History: None Reported General Exam Limitations: no limitations General appearance: alert, in no apparent distress, other (This is a well- developed, well-nourished adult male in no acute distress.) ENT exam: Present: normal exam, normal oropharynx, mucous membranes moist Respiratory exam: Present: normal lung sounds bilaterally. Absent: respiratory distress, wheezes, rales, rhonchi, stridor Cardiovascular Exam: Present: regular rate, normal rhythm, normal heart sounds. Absent: systolic murmur, diastolic murmur, rubs, gallop, clicks GI/Abdominal exam: Present: soft, normal bowel sounds. Absent: distended, tenderness, guarding, rebound, rigid Neurological exam: Present: alert, oriented X3, CN II-XII intact Psychiatric exam: Present: normal affect, normal mood Skin exam: Present: warm, dry, intact, normal color. Absent: rash Course Vital Signs 06/11/21 06/12/21 22:56 01:06 Temperature 98.3 F 98.7 F Pulse Rate 79 65 Respiratory 18 18 Rate Blood Pressure 124/88 131/93 O2 Sat by Pulse 99 99 Oximetry EKG Findings - EKG Comments: EKG Findings:: EKG obtained at 2315 shows normal sinus rhythm with an incomplete right bundle branch block. Ventricular rate is 67, AL interval 170, QRS dura tion 114, QT 402, QTc 424. Medical Decision Making - Medical Decision Making 26-year-old male patient presents to the emergency department today for evaluation of left-sided burning chest pain intermittent over the last 2 days. Physical examination is unremarkable. He is a symptomatic at this time. Abdomen is soft and nontender. Labs reviewed and are unremarkable. Troponin negative. EKG shows incomplete right bundle branch block. I did inform patient of all results including abnormal EKG. To be discharged follow up with his primary care physician for recheck in 1-2 days. Instructed to follow up with cardiology for further evaluation of his abnormal EKG and symptoms. Return parameters were discussed in detail. He verbalizes understanding and agrees with this plan. Case discussed with my attending Dr. Mario. - Lab Data Result diagrams: 06/12/21 01:25 06/12/21 01:25 Lab Results 06/12/21 06/12/21 06/12/21 Range/Units 01:25 01:25 01:25 WBC 7.3 (3.8-10.6) k/uL RBC 5.13 (4.30-5.90) m/uL Hgb 16.7 (13.0-17.5) gm/dL Hct 46.1 (39.0-53.0) % MCV 89.8 (80.0-100.0) fL MCH 32.6 (25.0-35.0) pg MCHC 36.3 (31.0-37.0) g/dL RDW 11.9 (11.5-15.5) % Plt Count 211 (150-450) k/uL MPV 7.6 Neutrophils % 55 % Lymphocytes % 33 % Monocytes % 7 % Eosinophils % 2 % Basophils % 1 % Neutrophils # 4.0 (1.3-7.7) k/uL Lymphocytes # 2.4 (1.0-4.8) k/uL Monocytes # 0.5 (0-1.0) k/uL Eosinophils # 0.2 (0-0.7) k/uL Basophils # 0.0 (0-0.2) k/uL Hyperchromasia Slight PT 10.1 (9.0-12.0) sec INR 0.9 (<1.2) APTT 23.9 (22.0-30.0) sec D-Dimer <0.17 (<0.60) mg/L FEU Sodium 136 L (137-145) mmol/L Potassium 4.0 (3.5-5.1) mmol/L Chloride 103 (98-107) mmol/L Carbon Dioxide 26 (22-30) mmol/L Anion Gap 7 mmol/L BUN 15 (9-20) mg/dL Creatinine 1.02 (0.66-1.25) mg/dL Est GFR (CKD-EPI)AfAm >90 (>60 ml/min/1.73 sqM) Est GFR (CKD-EPI)NonAf >90 (>60 ml/min/1.73 sqM) Glucose 97 (74-99) mg/dL Calcium 9.8 (8.4-10.2) mg/dL Magnesium 2.1 (1.6-2.3) mg/dL Total Bilirubin 0.5 (0.2-1.3) mg/dL AST 32 (17-59) U/L ALT 19 (4-49) U/L Alkaline Phosphatase 77 (38-126) U/L Troponin I (0.000-0.034) ng/mL Total Protein 7.3 (6.3-8.2) g/dL Albumin 4.6 (3.5-5.0) g/dL Lipase 52 (23-300) U/L 06/12/ Range/Units 01:25 WBC (3.8-10.6) k/uL RBC (4.30-5.90) m/uL Hgb (13.0-17.5) gm/dL Hct (39.0-53.0) % MCV (80.0-100.0) fL MCH (25.0-35.0) pg MCHC (31.0-37.0) g/dL RDW (11.5-15.5) % Plt Count (150-450) k/uL MPV Neutrophils % % Lymphocytes % % Monocytes % % Eosinophils % % Basophils % % Neutrophils # (1.3-7.7) k/uL Lymphocytes # (1.0-4.8) k/uL Monocytes # (0-1.0) k/uL Eosinophils # (0-0.7) k/uL Basophils # (0-0.2) k/uL Hyperchromasia PT (9.0-12.0) sec INR (<1.2) APTT (22.0-30.0) sec D-Dimer (<0.60) mg/L FEU Sodium (137-145) mmol/L Potassium (3.5-5.1) mmol/L Chloride (98-107) mmol/L Carbon Dioxide (22-30) mmol/L Anion Gap mmol/L BUN (9-20) mg/dL Creatinine (0.66-1.25) mg/dL Est GFR (CKD-EPI)AfAm (>60 ml/min/1.73 sqM) Est GFR (CKD-EPI)NonAf (>60 ml/min/1.73 sqM) Glucose (74-99) mg/dL Calcium (8.4-10.2) mg/dL Magnesium (1.6-2.3) mg/dL Total Bilirubin (0.2-1.3) mg/dL AST (17-59) U/L ALT (4-49) U/L Alkaline Phosphatase (38-126) U/L Troponin I <0.012 (0.000-0.034) ng/mL Total Protein (6.3-8.2) g/dL Albumin (3.5-5.0) g/dL Lipase (23-300) U/L Disposition Clinical Impression: Chest pain, Abnormal EKG Disposition: HOME SELF-CARE Condition: Good Instructions (If sedation given, give patient instructions): Chest Pain (ED) Additional Instructions: Up with your primary care physician for recheck in 1-2 days. Follow-up with cardiology for further evaluation of your abnormal EKG. Return for any new, worsening, or concerning symptoms. Is patient prescribed a controlled substance at d/c from ED?: No Referrals: Eleazar Jenkins MD [STAFF PHYSICIAN] - 1-2 days Time of Disposition: 02:42
[2021-06-12 02:22] LABS: INR 0.9 (<1.2); Partial Thromboplastin Time 23.9 sec (22.0-30.0); Prothrombin Time 10.1 sec (9.0-12.0)
[2021-06-12 03:05] VITALS: BP 127/88; PULSE 67
== END 2021-06-12 03:05 | disposition home or self-care (01) ==
LOC: EC 21:55
DX: R07.89 Other chest pain (principal); R94.31 Abnormal electrocardiogram [ECG] [EKG]; F17.290 Nicotine dependence, other tobacco product, uncomplicated
CPT/HCPCS: 36415; 71046; 80053; 83690; 83735; 84484; 85025; 85379; 85610; 85730; 93005; 99285

== ENCOUNTER → 2021-09-07 | Outpatient (CLI) | payer BC ==
[2021-09-07 23:18] LABS: Basophils # (A) 0.04 X 10*3/uL (0.00-0.10); Basophils % (A) 0.7 %; Eosinophils # (A) 0.09 X 10*3/uL (0.04-0.35); Eosinophils % (A) 1.7 %; HCT 42.4 % (39.6-50.0); HGB 14.6 g/dL (13.0-17.0); Lymphocytes # (A) 1.94 X 10*3/uL (0.90-5.00); Lymphocytes % (A) 35.9 %; MCH 31.7 pg (27.0-32.0); MCHC 34.4 g/dL (32.0-37.0); Mean Platelet Volume 10.6 fL (9.5-12.2); Monocytes # (A) 0.46 X 10*3/uL (0.20-1.00); Monocytes % (A) 8.5 %; Neutrophils # (A) 2.86 X 10*3/uL (1.80-7.70); Platelet Count 242 X 10*3/uL (140-440); RBC 4.61 X 10*6/uL (4.40-5.60); RDW 11.9 % (11.5-14.5)
[2021-09-07 23:19] LABS: Immature Grans, Automated 0.2 %; NRBC Per 100 WBC 0 /100 WBCS (0.0-0.0)
[2021-09-08 00:16] LABS: Anion Gap 12.6 mmol/L (10.00-18.00); Carbon Dioxide 25.7 mmol/L (20.0-27.5)
== END | disposition home or self-care (01) ==
LOC: LABPAT 16:15
PROVIDERS: ATTEND Orthopaedic Surgery
DX: Z01.812 Encounter for preprocedural laboratory examination (principal); S83.511D Sprain of anterior cruciate ligament of right knee, subsequent encounter; M23.91 Unspecified internal derangement of right knee; X58.XXXD Exposure to other specified factors, subsequent encounter
CPT/HCPCS: 80051; 85025

== ENCOUNTER 2021-09-15 07:55 | Day surgery (SDC) | payer BC ==
--- NOTE | 2021-09-14 20:37 | HP ---
HISTORY AND PHYSICAL DATE OF SURGERY: 09/15/2021 Holland Michaud is a 26-year-old patient seen with right knee instability, history of anterior cruciate ligament tear and meniscal tear. We discussed options. He elected to proceed with right knee arthroscopy to include allograft ACL reconstruction. Consent was obtained. PAST MEDICAL HISTORY: Noncontributory. PAST SURGICAL HISTORY: ORIF ankle. DAILY MEDICATIONS: None. ALLERGIES: NONE. SOCIAL HISTORY: He denies tobacco use. PHYSICAL EVALUATION OF THE RIGHT KNEE: Range of motion negative 3 to 125. Tenderness along the medial and lateral joint lines. Positive medial Edith's. Positive lateral Edith's. Plus 2/3 Karsten pivot shift is positive. Collateral ligaments are stable. Distal neurovascular exam intact. Radiographs of the right knee revealed no osseous abnormality. MRI right knee revealed medial and lateral meniscal tears and anterior cruciate ligament tear. IMPRESSION: Internal derangement of right knee with medial meniscal tear, lateral meniscal tear and ACL tear. PLAN: Right knee arthroscopy with partial meniscectomy and allograft ACL reconstruction. MMODL / IJN: [id number] /
[~2021-09-15 07:55] MED LIST: DEXAMETHASONE SOD PHOSPHATE 4 MG/ML 1 ML VIAL IV ONE; LACTATED RINGERS 1,000 ML IV SCH; LIDOCAINE 1% (10MG/ML) FOR IV START INTRADERMA PRN; MIDAZOLAM 2 MG/2 ML VIAL IV PRN; ONDANSETRON 4 MG/2 ML VIAL IVP ONE
[2021-09-15 08:16] VITALS: RESP 16
[2021-09-15] MEDS ORDERED: MIDAZOLAM 2 MG/2 ML VIAL IVP ONE (08:43)
[2021-09-15] MEDS ORDERED: PROPOFOL 10 MG/ML 20 ML VIAL IV ONE (09:21)
[2021-09-15] MEDS ORDERED: DEXAMETHASONE SOD PHOSPHATE 4 MG/ML 1 ML VIAL ONE (09:21)
[2021-09-15] MEDS ORDERED: MIDAZOLAM 2 MG/2 ML VIAL ONE (09:21)
[2021-09-15] MEDS ORDERED: KETOROLAC 15 MG/ML 1 ML VIAL ONE (09:21)
[2021-09-15] MEDS ORDERED: ROPIVACAINE 5 MG/ML 30 ML VIAL ONE (09:21)
[2021-09-15] MEDS ORDERED: fentaNYL (PF) 50 MCG/ML 2 ML AMP ONE (09:21)
--- NOTE | 2021-09-15 11:27 | P.OP ---
Date of Procedure: 09/15/21 Preoperative Diagnosis: Internal derangement right knee Postoperative Diagnosis: 1. ACL tear right knee 2. Medial lateral meniscal tears right knee 3. Reactive synovitis medial, lateral and suprapatellar compartments right knee Procedure(s) Performed: 1. Arthroscopic allograft ACL reconstruction right knee 2. Arthroscopic partial medial and lateral meniscectomy right knee 3. Arthroscopic partial synovectomy medial, lateral and suprapatellar comp artments right knee Implants: 2Arthrex Endobuttons 1Arthrex 4.75 swivel lock anchor Anesthesia: GETA, regional (Adductor canal block) Surgeon: Hari Ruiz Web Architect #1: Jose Sands Estimated Blood Loss (ml): 15 Pathology: none sent Condition: stable Disposition: PACU Indications for Procedure: 26-year-old patient seen with progressive right knee pain as well as instability. We discussed options. He elected to proceed with arthroscopy to include allograft ACL reconstruction. Operative Findings: See description of procedure Description of Procedure: Patient was taken to the operative suite after having an abductor canal block for postoperative pain management by the department of anesthesia. Patient underwent a general anesthetic by the department of anesthesia. Patient was given preoperative antibiotics. The right lower extremity was placed in a well- padded arthroscopic leg andrews. The right leg was prepped and draped in the normal sterile orthopedic fashion. A lateral parapatellar and suprapatellar incision was made. Trochars were inserted. Arthroscopy was initiated. Suprapatellar pouch revealed diffuse thick reactive synovitis. The patellofemoral joint appeared to articulate congruently. There was no significant chondromalacia evident at the patellofemoral joint. The scope was guided into the medial gutter. No loose bodies or plica were identified. The scope was then guided into the medial compartment. A medial parapatellar incision was made. Trocar inserted followed by probe. There was a small radial tear posterior horn medial meniscus. There was no chondromalacia present. There was thick reactive synovitis anteriorly. Scope and probe were then guided into the intercondylar notch. There was a complete ACL tear present. The PCL was stable. At this point a graft was opened for allograft ACL reconstruction. Matthew RENTERIA at this point began preparing the graft for implantation of the back table while I proceeded with continuing the arthroscopy I guided the scope back into the medial compartment. I introduced various hand basket instruments and performed a partial medial meniscectomy getting down to stable meniscal tissue. I now introduced a motorized shaver and debrided out the piecemeal fragments of meniscus and then performed a partial synovectomy decompressing the reactive synovitis anteriorly. The residual meniscus was stable. There was good decompression of the synovitis.. The scope and probe were then guided into lateral compartment. There was a small radial tear involving the midbody the lateral meniscus. There was no chondromalacia present. There was thick reactive synovitis anteriorly. I performed a partial lateral meniscectomy getting down to stable meniscal tissue. I performed a partial synovectomy decompressing the reactive synovitis. The residual meniscus was probed and found to be stable. There was good decompression of the synovitis. I now guided the scope back into the intercondylar notch. I now debrided out the residual remnants of ACL. I performed a notchplasty. At this point the graft was ready for implantation. Matthew RENTERIA this point came to the operative field. I then enlarged my medial gericare aide teacher portal site. I now with assistance of Matthew RENTERIA created a femoral tunnel. A subtle suture was now passed through that. With this is soledad sands holding the extremity or pelvic guide he helped drill the all inside tibial tunnel. Once that was completed we passed a shuttle suture through that as well. I now brought the graft to the operative field. While I held the graft Matthew RENTERIA helped shuttle the graft into the femoral tunnel watching the Endobutton flip making sure was secure. With the assistance of Matthew RENTERIA now passed the tibial side of the graft into our tibial tunnel and noted good positioning there. I now took the knee into full extension. With the assistance of Matthew RENTERIA I placed the Endobutton on the tibial side and tension the graft appropriately and our tibial tunnel and then secured that button. I then with the assistance of Matthew RENTERIA drilled a hole into the proximal tibia for insertion of an anchor. We now shuttled the sutures residual sutures to include her internal brace suture through the eyelet of a 4.75 Arthrex swivel lock anchor. I placed the eyelet into our pre-drill hole, held in position while Matthew RENTERIA tension the sutures and deployed anchor with good fixation noted. With the knee in full extension we now completed tensioning our femoral sciatic graft. We now resumed arthroscopy and noted good positioning of our graft. There was good intraoperative stability. There was full range of motion with no impingement. The scope was in guided back into the suprapatellar compartment. I introduced the motorized shaver into the super patellar compartment. I debrided some residual piecemeal fragments of meniscus I encountered. I performed a partial synovectomy. The shaver was removed. There was good decompression of the synovitis. I took one more look on the entire knee, no residual debris. Instruments were now removed from the joint. The joint was infiltrated with .25% Marcaine. I approximated all portal sites and mini incision with nylon suture. Sterile dressings were applied. The patient right lower extremity is placed in a knee immobilizer. No tourniquet was utilized. The patient was awakened, transferred to a bed and taken to recovery stable satisfactory condition.
[2021-09-15 11:28] VITALS: TEMP 98
[2021-09-15] MEDS: HYDROmorphone 0.5 MG/0.5 ML SYRINGE IVP PRN ×2 (11:43→11:59)
[2021-09-15] MEDS ORDERED: HYDROcodone/APAP 7.5-325MG 1 EACH TAB ONE (12:53)
[2021-09-15 13:18] VITALS: BP 149/75; PULSE 89
--- NOTE | 2021-09-16 10:12 | P.ANPRN ---
Procedure Note - Anesthesia - Nerve Block Performed Right Adductor Canal Infusion Time Out Performed: Yes Date of Procedure: 09/15/21 Procedure Start Time: 08:42 Procedure Stop Time: 08:47 Location of Patient: PreOp Indication: Acute Post-Operative Pain Sedation Type: Sedate with meaningful contact maintained Preparation: Sterile Prep Position: Supine Needle Types: Pajunk Needle Gauge: 21 Ultrasound used to visualize needle placement: Yes Ultrasound used to observe medication spread: Yes Blood Aspirated: No Pain Paresthesia on Injection Noted: No Resistance on Injection: Normal Image Stored and Saved: Yes Events: Uneventful and Well Tolerated (ropi .5% 20cc)
--- NOTE | 2021-09-16 10:12 | P.ANPRN ---
Procedure Note - Anesthesia - Nerve Block Performed Right iPack Single Time Out Performed: Yes Date of Procedure: 09/15/21 Procedure Start Time: 08:48 Procedure Stop Time: 08:51 Location of Patient: PreOp Indication: Acute Post-Operative Pain, Requested by Surgeon Sedation Type: Sedate with meaningful contact maintained Preparation: Sterile Prep Position: Supine Needle Types: Pajunk Needle Gauge: 21 Ultrasound used to visualize needle placement: Yes Ultrasound used to observe medication spread: Yes Blood Aspirated: No Pain Paresthesia on Injection Noted: No Resistance on Injection: Normal Image Stored and Saved: Yes Events: Uneventful and Well Tolerated (Ropivacaine 0.5% 20 mL plus dexamethasone 4 mg)
== END 2021-09-15 14:01 | disposition home or self-care (01) ==
LOC: OR 07:55
PROVIDERS: ATTEND Orthopaedic Surgery
DX: S83.511A Sprain of anterior cruciate ligament of right knee, initial encounter (principal); M23.200 Derangement of unspecified lateral meniscus due to old tear or injury, right knee; M65.861 Other synovitis and tenosynovitis, right lower leg; F17.200 Nicotine dependence, unspecified, uncomplicated; Z98.890 Other specified postprocedural states
CPT/HCPCS: 29880; 29888; 64999; 64448; 76942; C1713 ×3; C1762; J2250; J1100; J2405; J0690; J3010; J2795; J1885; J2704; J1170

== ENCOUNTER 2022-10-15 21:46 | Emergency (ER) | payer BC ==
[2022-10-15 21:53] VITALS: RESP 16; TEMP 98.4
--- NOTE | 2022-10-15 22:34 | ED ---
Seizure HPI - General Chief Complaint: Seizure Stated Complaint: Seizure Time Seen by Provider: 10/15/22 21:47 Source: EMS Mode of arrival: EMS Limitations: no limitations - History of Present Illness Initial Comments: This patient is 27-year-old man who presents for evaluation after having had a seizure. The patient was at home when he says that he began to feel funny. He states that he knelt down and then the next thing he really remembers is waking up at the hospital. It was reported that the patient had tonic-clonic shaking movements. No loss of continence. This lasted for a number seconds up to a minute. The patient does report that he has had previous seizures. He states that he gets 1 every few months usually when he is attempting to go to sleep. He states that he had been seen previously but no medication was prescribed. Tonight the patient states she is not feeling like he had a trauma. He states he feels a little fatigued but otherwise back at baseline. MD Complaint: seizure -: minutes(s) Description of Episode: loss of consciousness, tonic-clonic movement, post-event confusion -: second(s) Witnessed: yes - by bystander Trauma: No Seizure History: known seizure disorder Place: home Possible Precipitating Event: none Associated Symptoms: denies other symptoms Treatments Prior to Arrival: none - Related Data Home Medications Medication Instructions Recorded Confirmed Melatonin 5 mg PO HS PRN 09/14/21 09/15/21 diphenhydrAMINE [Benadryl] 25 mg PO HS PRN 09/14/21 09/15/21 Previous Rx's Medication Instructions Recorded Cephalexin [Keflex] 500 mg PO Q6HR 5 Days #20 cap 09/15/21 HYDROcodone/APAP 7.5-325MG [[place] 1 each PO Q6HR PRN #28 tab 09/15/21 7.5] Ibuprofen 800 mg PO Q8H PRN #40 tab 09/15/21 Allergies Allergy/AdvReac Type Severity Reaction Status Date / Time adhesive AdvReac Rash/Hives Verified 09/15/21 08:27 Review of Systems ROS Statement: Those systems with pertinent positive or pertinent negative responses have been documented in the HPI. ROS Other: All systems not noted in ROS Statement are negative. Constitutional: Denies: fever, chills, weakness Eyes: Denies: vision change Respiratory: Denies: cough, dyspnea Cardiovascular: Denies: chest pain, palpitations, edema Gastrointestinal: Reports: nausea. Denies: abdominal pain, vomiting, diarrhea Genitourinary: Denies: dysuria, hematuria Musculoskeletal: Denies: back pain Skin: Denies: rash Neurological: Denies: headache, weakness, numbness, confusion Past Medical History Past Medical History: No Reported History Additional Past Medical History / Comment(s): anxiety, adhd History of Any Multi-Drug Resistant Organisms: None Reported Past Surgical History: Orthopedic Surgery Additional Past Surgical History / Comment(s): ankle, right knee ACL repair Past Psychological History: ADD/ADHD, Anxiety, Bipolar, Depression, Panic Disorder Smoking Status: Current every day smoker, Vaper Past Drug Use History: None Reported General Exam Limitations: no limitations General appearance: alert, in no apparent distress Head exam: Present: atraumatic, normocephalic Eye exam: Present: normal appearance. Absent: scleral icterus, conjunctival injection ENT exam: Present: normal oropharynx, mucous membranes moist Neck exam: Present: normal inspection, full ROM. Absent: meningismus Respiratory exam: Present: normal lung sounds bilaterally. Absent: respiratory distress, wheezes, rales, rhonchi, stridor Cardiovascular Exam: Present: regular rate, normal rhythm, normal heart sounds. Absent: systolic murmur, diastolic murmur, rubs, gallop GI/Abdominal exam: Present: soft. Absent: distended, tenderness, guarding, rebound, rigid, mass Extremities exam: Present: normal inspection, normal capillary refill. Absent: pedal edema, calf tenderness Back exam: Present: normal inspection. Absent: CVA tenderness (R), CVA tenderness (L) Neurological exam: Present: alert Skin exam: Present: warm, dry, intact, normal color. Absent: rash Course Vital Signs 10/15/22 10/15/22 21:47 23:00 Temperature 98.4 F Pulse Rate 79 77 Respiratory 16 16 Rate Blood Pressure 135/103 131/92 O2 Sat by Pulse 100 100 Oximetry Medical Decision Making - Medical Decision Making This patient is a 27-year-old man brought to have evaluation after having had what sounds like generalized tonic-clonic seizure. Further discussion with the patient revealed that he is not aware of having had imaging in the past, therefore computed tomography scan of the brain obtained which I interpreted as not showing any acute bony injury or intracranial hemorrhage. Patient returned to baseline and stable for outpatient follow-up with neurology for possible EEG. Discussed appropriate further care and follow-up as well as return parameters. Was pt. sent in by a medical professional or institution ([facility] Maldonado, [facility], urgent care, hospital, or [facility]...) When possible be specific @ -[No] Did you speak to anyone other than the patient for history (EMS, parent, family, police, friend...)? What history was obtained from this source @ -[No] Did you review nursing and triage notes (agree or disagree)? Why? @ -[I reviewed and agree with nursing and triage notes] Were old charts reviewed (outside hosp., previous admission, EMS record, old EKG, old radiological studies, urgent care reports/EKG's, [facility] records)? Report findings @ -[No old charts were reviewed] Differential Diagnosis (chest pain, altered mental status, abdominal pain women, abdominal pain men, vaginal bleeding, weakness, fever, dyspnea, syncope, headache, dizziness, GI bleed, back pain, seizure, CVA, palpatations, mental health, musculoskeletal)? @ -[nDifferential Seizure: Recurrent seizure disorder, febrile seizure, alcohol withdrawal, stimulants, meningitis, encephalitis, intercranial hemorrhage, intracranial tumor, stroke, eclampsia, thyrotoxicosis, hypocalcemia, hyponatremia, hypernatremia, hypomagnesemia, psychogenic, this is not meant to be an all-inclusive list. EKG interpreted by me (3pts min.). @ -[As above] X-rays interpreted by me (1pt min.). @ -[None done] CT interpreted by me (1pt min.). @ -[As above U/S interpreted by me (1pt. min.). @ -[None done] What testing was considered but not performed or refused? (CT, X-rays, U/S, labs)? Why? @ -[None] What meds were considered but not given or refused? Why? @ -[None] Did you discuss the management of the patient with other professionals (professionals i.e. DEXTER Maldonado, BOARD LAYER, lab, RT, psych nurse, director social welfare, pneumatic jack operator, teacher, worldwide chief creative officer, case assistant)? Give summary @ -[No] Was smoking cessation discussed for >3mins.? @ -[No] Was critical care preformed (if so, how long)? @ -[No] Were there social determinants of health that impacted care today? How? (Homelessness, low income, unemployed, alcoholism, drug addiction, transportation, low edu. Level, literacy, decrease access to med. care, skilled nursing, rehab)? @ -[No] Was there de-escalation of care discussed even if they declined (Discuss DNR or withdrawal of care, Hospice)? DNR status @ -[No] What co-morbidities impacted this encounter? (DM, HTN, Smoking, COPD, CAD, Cancer, CVA, ARF, Chemo, Hep., AIDS, mental health diagnosis, sleep apnea, morbid obesity)? @ -[None] Was patient admitted / discharged? Hospital course, mention meds given and route, prescriptions, significant lab abnormalities, going to OR and other pertinent info. @ -[Discharged Undiagnosed new problem with uncertain prognosis? @ -[No] Drug Therapy requiring intensive monitoring for toxicity (Heparin, Nitro, Insulin, Cardizem)? @ -[No] Were any procedures done? @ -[No] Diagnosis/symptom? @ -[Acute generalized tonic-clonic seizure Acute, or Chronic, or Acute on Chronic? @ -[default] Uncomplicated (without systemic symptoms) or Complicated (systemic symptoms)? @ -[Uncomplicated Side effects of treatment? @ -[No] Exacerbation, Progression, or Severe Exacerbation? @ -[No] Poses a threat to life or bodily function? How? (Chest pain, [place], [place], pneumonia, PE, COPD, DKA, ARF, appy, cholecystitis, CVA, Diverticulitis, Homicidal, Suicidal, threat to staff... and all critical care pts) @ -[No] - Lab Data Result diagrams: 10/15/22 21:52 10/15/22 21:52 Lab Results 10/15/22 10/15/22 10/15/22 Range/Units 21:52 21:52 22:54 WBC 8.2 (3.8-10.6) k/uL RBC 4.55 (4.30-5.90) m/uL Hgb 14.6 (13.0-17.5) gm/dL Hct 42.0 (39.0-53.0) % MCV 92.4 (80.0-100.0) fL MCH 32.2 (25.0-35.0) pg MCHC 34.8 (31.0-37.0) g/dL RDW 13.6 (11.5-15.5) % Plt Count 219 (150-450) k/uL MPV 8.1 Neutrophils % 63 % Lymphocytes % 28 % Monocytes % 5 % Eosinophils % 1 % Basophils % 1 % Neutrophils # 5.2 (1.3-7.7) k/uL Lymphocytes # 2.3 (1.0-4.8) k/uL Monocytes # 0.4 (0-1.0) k/uL Eosinophils # 0.1 (0-0.7) k/uL Basophils # 0.1 (0-0.2) k/uL Sodium 143 (137-145) mmol/L Potassium 4.2 (3.5-5.1) mmol/L Chloride 108 H (98-107) mmol/L Carbon Dioxide 22 (22-30) mmol/L Anion Gap 13 mmol/L BUN 11 (9-20) mg/dL Creatinine 0.91 (0.66-1.25) mg/dL Est GFR (CKD-EPI)AfAm >90 (>60 ml/min/1.73 sqM) Est GFR (CKD-EPI)NonAf >90 (>60 ml/min/1.73 sqM) Glucose 77 (74-99) mg/dL Calcium 9.2 (8.4-10.2) mg/dL Magnesium 2.3 (1.6-2.3) mg/dL Total Bilirubin 0.5 (0.2-1.3) mg/dL AST 32 (17-59) U/L ALT 23 (4-49) U/L Alkaline Phosphatase 73 (38-126) U/L Total Protein 7.2 (6.3-8.2) g/dL Albumin 4.7 (3.5-5.0) g/dL Urine Opiates Screen Not Detected (NotDetected) Ur Oxycodone Screen Not Detected (NotDetected) Urine Methadone Screen Not Detected (NotDetected) Ur Propoxyphene Screen Not Detected (NotDetected) Ur Barbiturates Screen Not Detected (NotDetected) U Tricyclic Antidepress Not Detected (NotDetected) Ur Phencyclidine Scrn Not Detected (NotDetected) Ur Amphetamines Screen Not Detected (NotDetected) U Methamphetamines Scrn Not Detected (NotDetected) U Benzodiazepines Scrn Not Detected (NotDetected) Urine Cocaine Screen Not Detected (NotDetected) U Marijuana (THC) Screen Not Detected (NotDetected) Serum Alcohol 158 mg/dL - EKG Data -: EKG Interpreted by Mi EKG shows normal: sinus rhythm, axis (Normal), intervals (Normal), QRS complexes (Incomplete right bundle branch block.) Rate: normal (Rate 80 bpm) Disposition Clinical Impression: Generalized seizure Disposition: HOME SELF-CARE Condition: Good Instructions (If sedation given, give patient instructions): Seizure/Epilepsy Discharge Instructions & Follow-Up, Recurrent Seizures in Adults (ED) Is patient prescribed a controlled substance at d/c from ED?: No Referrals: None,Stated [Primary Care Provider] - 1-2 days Tu Bob MD [STAFF PHYSICIAN] - 1-2 days
[2022-10-15 22:54] LABS: Basophils # (A) 0.1 k/uL (0-0.2); Basophils % (A) 1 %; Eosinophils # (A) 0.1 k/uL (0-0.7); Eosinophils % (A) 1 %; HGB 14.6 gm/dL (13.0-17.5); Lymphocytes # (A) 2.3 k/uL (1.0-4.8); Lymphocytes % (A) 28 %; MCH 32.2 pg (25.0-35.0); MCHC 34.8 g/dL (31.0-37.0); MCV 92.4 fL (80.0-100.0); Mean Platelet Volume 8.1; Monocytes # (A) 0.4 k/uL (0-1.0); Monocytes % (A) 5 %; Neutrophils # (A) 5.2 k/uL (1.3-7.7); Neutrophils % (A) 63 %; Platelet Count 219 k/uL (150-450); RBC 4.55 m/uL (4.30-5.90); RDW 13.6 % (11.5-15.5); WBC 8.2 k/uL (3.8-10.6)
[2022-10-15 23:05] LABS: ALT 23 U/L (4-49); AST 32 U/L (17-59); African American GFR (CKD) >90 (>60 ml/min/1.73 sqM); Albumin 4.7 g/dL (3.5-5.0); Alkaline Phosphatase 73 U/L (38-126); Anion Gap 13 mmol/L; Blood Urea Nitrogen 11 mg/dL (9-20); Calcium 9.2 mg/dL (8.4-10.2); Carbon Dioxide 22 mmol/L (22-30); Chloride 108 mmol/L (98-107); Glucose 77 mg/dL (74-99); Magnesium 2.3 mg/dL (1.6-2.3); Non-African American GFR(CKD) >90 (>60 ml/min/1.73 sqM); Potassium 4.2 mmol/L (3.5-5.1); Sodium 143 mmol/L (137-145); Total Bilirubin 0.5 mg/dL (0.2-1.3); Total Protein 7.2 g/dL (6.3-8.2)
--- NOTE | 2022-10-15 23:06 | CT ---
EXAMINATION TYPE: CT brain wo con CT DLP: 1190.1 mGycm, Automated exposure control for dose reduction was used. DATE OF EXAM: 10/15/2022 10:56 PM COMPARISON: CT facial 05/19/2020 CLINICAL INDICATION:Male, 27 years old with history of seizure activity, seizure activity. pt states he's never been treated for seizures but has had them his whole life TECHNIQUE: Brain: Axial CT images of the brain were obtained with coronal and sagittal reformats created and rev iewed. Contrast used: None. Oral contrast used: None. FINDINGS: Brain: Extra-axial spaces: No abnormal extra-axial fluid collections. Ventricular system: Within normal limits Cerebral parenchyma: No acute intraparenchymal hemorrhage or mass effect. The paz-white junction is well differentiated. Cerebellum: Unremarkable. Mass effect: No evidence of midline shift. Intracranial vasculature: unremarkable Soft tissues: Normal. Calvarium/osseous structures: No depressed skull fracture. Paranasal sinuses and mastoid air cells: Clear Visualized orbits: Orbital contents are intact. IMPRESSION: No acute intracranial process.
[2022-10-15 23:20] LABS: Amphetamine Screen,Urine Not Detected (NotDetected); Barbiturate Screen,Urine Not Detected (NotDetected); Benzodiazepines Screen,Urine Not Detected (NotDetected); Cocaine Screen,Urine Not Detected (NotDetected); Methadone Screen, Urine Not Detected (NotDetected); Opiate Screen,Urine Not Detected (NotDetected); Oxycodone Screen, Urine Not Detected (NotDetected); Phencyclidine Screen,Urine Not Detected (NotDetected); Tricyclic Antidepressant,Urine Not Detected (NotDetected); Urn Cannabinoid Scrn Not Detected (NotDetected)
[2022-10-15 23:26] LABS: Alcohol 158 mg/dL
[2022-10-15] MEDS ORDERED: ONDANSETRON 4 MG/2 ML VIAL IVP STA (23:27)
[2022-10-15] MEDS ORDERED: SODIUM CHLORIDE 0.9% 1,000 ML IV STA (23:27)
[2022-10-15 23:54] VITALS: BP 131/92; PULSE 77
== END 2022-10-16 00:09 | disposition home or self-care (01) ==
LOC: EC 21:46
DX: G40.909 Epilepsy, unspecified, not intractable, without status epilepticus (principal); F17.290 Nicotine dependence, other tobacco product, uncomplicated; Z91.048 Other nonmedicinal substance allergy status
CPT/HCPCS: 36415; 93005; 80053; 83735; 85025; 80306; 80320; 70450; 99285; 96374; J2405

== ENCOUNTER 2022-11-12 12:05 | Emergency (ER) | payer BC ==
[2022-11-12 12:51] VITALS: BP 137/93; PULSE 104; RESP 18; TEMP 98.9
--- NOTE | 2022-11-12 13:30 | ED ---
General Adult HPI - General Chief complaint: Recheck/Abnormal Lab/Rx Stated complaint: Antidepressant Withdrawal Time Seen by Provider: 11/12/22 13:11 Source: patient, RN notes reviewed Mode of arrival: ambulatory Limitations: no limitations - History of Present Illness Initial comments: 27-year-old male presents emergency department with chief complaint of "I ran out of my Effexor." Patient states that he has been off his medication for 4 days. He states that he has been having "brain zaps" but no other withdrawal effects. Denies suicidal ideation, homicidal ideation, hallucinations and delusions. Patient is feeling well otherwise. He states that he is having difficulty getting into [facility] for medication management and may need to find someone else to go. - Related Data Home Medications Medication Instructions Recorded Confirmed Melatonin 5 mg PO HS PRN 09/14/21 09/15/21 diphenhydrAMINE [Benadryl] 25 mg PO HS PRN 09/14/21 09/15/21 Previous Rx's Medication Instructions Recorded Cephalexin [Keflex] 500 mg PO Q6HR 5 Days #20 cap 09/15/21 HYDROcodone/APAP 7.5-325MG [[place] 1 each PO Q6HR PRN #28 tab 09/15/21 7.5] Ibuprofen 800 mg PO Q8H PRN #40 tab 09/15/21 Venlafaxine HCl ER [Effexor Xr] 150 mg PO DAILY #30 cap 11/12/22 Allergies Allergy/AdvReac Type Severity Reaction Status Date / Time adhesive AdvReac Rash/Hives Verified 09/15/21 08:27 Review of Systems ROS Statement: Those systems with pertinent positive or pertinent negative responses have been documented in the HPI. ROS Other: All systems not noted in ROS Statement are negative. Past Medical History Past Medical History: No Reported History Additional Past Medical History / Comment(s): anxiety, adhd History of Any Multi-Drug Resistant Organisms: None Reported Past Surgical History: Orthopedic Surgery Additional Past Surgical History / Comment(s): ankle, right knee ACL repair Past Psychological History: ADD/ADHD, Anxiety, Bipolar, Depression, Panic Disorder Smoking Status: Current every day smoker, Vaper Past Drug Use History: None Reported General Exam Limitations: no limitations General appearance: alert, in no apparent distress Head exam: Present: atraumatic, normocephalic, normal inspection Eye exam: Present: normal appearance Respiratory exam: Present: normal lung sounds bilaterally. Absent: respiratory distress, wheezes, rales, rhonchi, stridor Cardiovascular Exam: Present: regular rate, normal rhythm, normal heart sounds. Absent: systolic murmur, diastolic murmur, rubs, gallop, clicks GI/Abdominal exam: Present: soft, normal bowel sounds. Absent: distended, tenderness, guarding, rebound, rigid Neurological exam: Present: alert, oriented X3 Psychiatric exam: Present: normal affect, normal mood Skin exam: Present: warm, dry, intact, normal color. Absent: rash Course Vital Signs 11/12/22 12:50 Temperature 98.9 F Pulse Rate 104 H Respiratory 18 Rate Blood Pressure 137/93 O2 Sat by Pulse 100 Oximetry Medical Decision Making - Medical Decision Making Was pt. sent in by a medical professional or institution (, D[facility]TER, RUBBER GASKET INSPECTOR TRIMMER, urgent care, hospital, or alf...) When possible be specific @ -No Did you speak to anyone other than the patient for history (EMS, parent, family, police, friend...)? What history was obtained from this source @ -No Did you review nursing and triage notes (agree or disagree)? Why? @ -I reviewed and agree with nursing and triage notes Were old charts reviewed (outside hosp., previous admission, EMS record, old EKG, old radiological studies, urgent care reports/EKG's, alf records)? Report findings @ -No old charts were reviewed Differential Diagnosis (chest pain, altered mental status, abdominal pain women, abdominal pain men, vaginal bleeding, weakness, fever, dyspnea, syncope, headache, dizziness, GI bleed, back pain, seizure, CVA, palpatations, mental health, musculoskeletal)? @ -not applicable EKG interpreted by me (3pts min.). @ -None X-rays interpreted by me (1pt min.). @ -None done CT interpreted by me (1pt min.). @ -None done U/S interpreted by me (1pt. min.). @ -None done What testing was considered but not performed or refused? (CT, X-rays, U/S, labs)? Why? @ -None What meds were considered but not given or refused? Why? @ -None Did you discuss the management of the patient with other professionals (professionals i.e. , PA, RUBBER GASKET INSPECTOR TRIMMER, lab, RT, psych nurse, drug abuse social worker, lodging facilities manager, teacher, seismology technical officer, pillowcase folder)? Give summary @ -No Was smoking cessation discussed for >3mins.? @ -No Was critical care preformed (if so, how long)? @ -No Were there social determinants of health that impacted care today? How? (Homelessness, low income, unemployed, alcoholism, drug addiction, transportation, low edu. Level, literacy, decrease access to med. care, senior living, rehab)? @ -No Was there de-escalation of care discussed even if they declined (Discuss DNR or withdrawal of care, Hospice)? DNR status @ -No What co-morbidities impacted this encounter? (DM, HTN, Smoking, COPD, CAD, Cancer, CVA, ARF, Chemo, Hep., AIDS, mental health diagnosis, sleep apnea, morbid obesity)? @ -None Was patient admitted / discharged? Hospital course, mention meds given and route, prescriptions, significant lab abnormalities, going to OR and other pertinent info. @ -Discharged. Patient presented to the emergency department for medication refill. Patient states that he ran out of his Effexor 4 days ago and is having difficulty getting into [facility] for medication refill. Denies SI, [place]. Effexor 150 mg was sent patient's pharmacy for 30 days. Advised patient to follow-up with his primary care provider and psychiatry for future medication refills. Case discussed with my attending, Dr. Raman. Patient discharged in stable condition. Undiagnosed new problem with uncertain prognosis? @ -No Drug Therapy requiring intensive monitoring for toxicity (Heparin, Nitro, Insulin, Cardizem)? @ -No Were any procedures done? @ -No Diagnosis/symptom? @ -Medication refill Acute, or Chronic, or Acute on Chronic? @ -Acute Uncomplicated (without systemic symptoms) or Complicated (systemic symptoms)? @ -Uncomplicated Side effects of treatment? @ -No Exacerbation, Progression, or Severe Exacerbation? @ -No Poses a threat to life or bodily function? How? (Chest pain, [place], [place], pneumonia, PE, COPD, DKA, ARF, appy, cholecystitis, CVA, Diverticulitis, Homicidal, Suicidal, threat to staff... and all critical care pts) @ -No Disposition Clinical Impression: Encounter for medication refill Disposition: HOME SELF-CARE Condition: Stable Instructions (If sedation given, give patient instructions): Depression (ED) Additional Instructions: Follow up with primary care provider and psychiatry for future medication management. Please return to the Emergency Department if symptoms worsen or any other concerns. Prescriptions: Venlafaxine HCl ER [Effexor Xr] 150 mg PO DAILY #30 cap Is patient prescribed a controlled substance at d/c from ED?: No Referrals: None,Stated [Primary Care Provider] - 1-2 days Time of Disposition: 13:29
== END 2022-11-12 13:39 | disposition home or self-care (01) ==
LOC: EC 12:05
DX: Z76.0 Encounter for issue of repeat prescription (principal); F17.290 Nicotine dependence, other tobacco product, uncomplicated; Z91.048 Other nonmedicinal substance allergy status
CPT/HCPCS: 99282

== ENCOUNTER 2022-11-20 18:49 | Emergency (ER) | payer BC ==
--- NOTE | 2022-11-20 20:00 | XR ---
EXAMINATION TYPE: XR knee complete 3 views RT DATE OF EXAM: 11/20/2022 COMPARISON: 11/09/2020, 09/26/2022 HISTORY: 27-year-old male with pain, unable to straighten leg, heard a pop while running. TECHNIQUE: 3 views FINDINGS: Postsurgical change of ACL graft reconstruction. No significant knee joint effusion seen. E xtensor mechanism appears intact. Ossific density posterior lip of the tibial plateau measuring 6 mm remains unchanged compatible with chronic etiology. IMPRESSION: Status post ACL graft reconstruction. No knee joint effusion or acute osseous abnormality seen.
[2022-11-20] MEDS ORDERED: ACETAMINOPHEN TAB 325 MG TAB PO STA (20:53)
--- NOTE | 2022-11-20 20:55 | ED ---
General Adult HPI - General Chief complaint: Extremity Injury, Lower Stated complaint: R knee injury Time Seen by Provider: 11/20/22 20:11 Source: patient, RN notes reviewed Mode of arrival: wheelchair Limitations: no limitations - History of Present Illness Initial comments: 27-year-old male with past medical history significant for ACL repair reports to the emergency department with chief complaint of left knee pain. Patient reports that he was walking on grass earlier today when he slipped and felt like his knee popped. She reports worsening pain with movement. He denies taking anything for his symptoms. He denies any numbness, tingling, weakness in the extremity. Dr. hawk Cutler did his prior surgery. - Related Data Home Medications Medication Instructions Recorded Confirmed Melatonin 5 mg PO HS PRN 09/14/21 09/15/21 diphenhydrAMINE [Benadryl] 25 mg PO HS PRN 09/14/21 09/15/21 Previous Rx's Medication Instructions Recorded Cephalexin [Keflex] 500 mg PO Q6HR 5 Days #20 cap 09/15/21 HYDROcodone/APAP 7.5-325MG [[place] 1 each PO Q6HR PRN #28 tab 09/15/21 7.5] Ibuprofen 800 mg PO Q8H PRN #40 tab 09/15/21 Venlafaxine HCl ER [Effexor Xr] 150 mg PO DAILY #30 cap 11/12/22 Allergies Allergy/AdvReac Type Severity Reaction Status Date / Time adhesive AdvReac Rash/Hives Verified 11/20/22 19:06 Review of Systems ROS Statement: Those systems with pertinent positive or pertinent negative responses have been documented in the HPI. ROS Other: All systems not noted in ROS Statement are negative. Past Medical History Past Medical History: No Reported History Additional Past Medical History / Comment(s): anxiety, adhd History of Any Multi-Drug Resistant Organisms: None Reported Past Surgical History: Orthopedic Surgery Additional Past Surgical History / Comment(s): ankle, right knee ACL repair Past Psychological History: ADD/ADHD, Anxiety, Bipolar, Depression, Panic Disorder Smoking Status: Current every day smoker, Vaper Past Alcohol Use History: None Reported Past Drug Use History: None Reported General Exam - General Exam Comments Initial Comments: General: Alert, in no acute distress Head: atraumatic normocephalic. Eyes PERRL, EOMI intact, mucous membranes moist Respiratory: Lungs clear to auscultation bilaterally Cardiovascular: Heart rate regular rate and rhythm Abdominal: Soft without guarding or rebound Extremities: Normal inspection with full range of motion and normal capillary refill, DT/PT pulses 2+ bilaterally, limited range of motion secondary to pain Neuroogic: alert and oriented 3, CN II-XII intact, able to ambulate with steady gait Skin: warm dry and intact with normal color Limitations: no limitations Course Vital Signs 11/20/22 11/20/22 19:04 21:12 Temperature 97.9 F 98.6 F Pulse Rate 95 92 Respiratory 16 20 Rate Blood Pressure 122/81 146/98 O2 Sat by Pulse 99 100 Oximetry Medical Decision Making - Medical Decision Making Was pt. sent in by a medical professional or institution (DEXTER Maldonado, TRANSACTIONAL ATTORNEY, urgent care, hospital, or retirement...) When possible be specific @ -[No] Did you speak to anyone other than the patient for history (EMS, parent, family, police, friend...)? What history was obtained from this source @ -[No] Did you review nursing and triage notes (agree or disagree)? Why? @ -[I reviewed and agree with nursing and triage notes] Were old charts reviewed (outside hosp., previous admission, EMS record, old EKG, old radiological studies, urgent care reports/EKG's, retirement records)? Report findings @ -[No old charts were reviewed] Differential Diagnosis (chest pain, altered mental status, abdominal pain women, abdominal pain men, vaginal bleeding, weakness, fever, dyspnea, syncope, headache, dizziness, GI bleed, back pain, seizure, CVA, palpatations, mental health, musculoskeletal)? @ -[not applicable] EKG interpreted by me (3pts min.). @ -[As above] X-rays interpreted by me (1pt min.). @ -[None done] CT interpreted by me (1pt min.). @ -[None done] U/S interpreted by me (1pt. min.). @ -[None done] What testing was considered but not performed or refused? (CT, X-rays, U/S, labs)? Why? @ -[None] What meds were considered but not given or refused? Why? @ -[None] Did you discuss the management of the patient with other professionals (professionals i.e. , PA, TRANSACTIONAL ATTORNEY, lab, RT, psych nurse, criminal justice social worker, director of assisted living, teacher, loss prevention officer, telephonic nurse case manager)? Give summary @ -[No] Was smoking cessation discussed for >3mins.? @ -[No] Was critical care preformed (if so, how long)? @ -[No] Were there social determinants of health that impacted care today? How? (Homelessness, low income, unemployed, alcoholism, drug addiction, transportation, low edu. Level, literacy, decrease access to med. care, senior living, rehab)? @ -[No] Was there de-escalation of care discussed even if they declined (Discuss DNR or withdrawal of care, Hospice)? DNR status @ -[No] What co-morbidities impacted this encounter? (DM, HTN, Smoking, COPD, CAD, Cancer, CVA, ARF, Chemo, Hep., AIDS, mental health diagnosis, sleep apnea, morbid obesity)? @ -[None] Was patient admitted / discharged? Hospital course, mention meds given and route, prescriptions, significant lab abnormalities, going to OR and other pertinent info. @ -Discharged. This is a 27-year-old male who presents the emergency department with knee pain. Patient had a thorough history and physical exam performed, physical exam reveals heart rate regular rate and rhythm, lungs clear to auscultation bilaterally abdomen is soft and nontender. Left knee without obvious deformity, limited ROM secondary to pain. Patient able to ambulate with a steady gait. No neurological deficits are noted. imaging performed which was essentially unremarkable I discussed the results in detail with the patient verbalized understanding and all questions were addressed. Return precautions were discussed at length. Discharged in stable condition. Case discussed with DEVI Mark who agrees with plan of care Undiagnosed new problem with uncertain prognosis? @ -[No] Drug Therapy requiring intensive monitoring for toxicity (Heparin, Nitro, Insulin, Cardizem)? @ -[No] Were any procedures done? @ -[No] Diagnosis/symptom? @ -L knee pain Acute, or Chronic, or Acute on Chronic? @ -acute Uncomplicated (without systemic symptoms) or Complicated (systemic symptoms)? @ -uncomplicated Side effects of treatment? @ -[No] Exacerbation, Progression, or Severe Exacerbation? @ -[No] Poses a threat to life or bodily function? How? (Chest pain, [place], MT, pneumonia, PE, COPD, DKA, ARF, appy, cholecystitis, CVA, Diverticulitis, Homicidal, Suicidal, threat to staff... and all critical care pts) @ -low likelihood Disposition Clinical Impression: Internal derangement of knee Disposition: HOME SELF-CARE Condition: Stable Instructions (If sedation given, give patient instructions): Knee Sprain (ED), Knee Pain (ED) Additional Instructions: Please follow-up with Dr. Ruiz office sometime this week Is patient prescribed a controlled substance at d/c from ED?: No Referrals: None,Stated [Primary Care Provider] - 1-2 days Time of Disposition: 21:03
[2022-11-20 21:14] VITALS: BP 146/98; PULSE 92; RESP 20; TEMP 98.6
== END 2022-11-20 21:31 | disposition home or self-care (01) ==
LOC: EC 18:49
DX: M23.91 Unspecified internal derangement of right knee (principal); F17.290 Nicotine dependence, other tobacco product, uncomplicated; Z91.09 Other allergy status, other than to drugs and biological substances
CPT/HCPCS: 99283

== ENCOUNTER → 2022-11-24 | Outpatient (CLI) | payer BC ==
--- NOTE | 2022-11-24 18:34 | MR ---
EXAMINATION TYPE: MR knee RT wo con DATE OF EXAM: 11/24/2022 COMPARISON: Outside radiograph 11/21/2022 HISTORY: 27-year-old male M25.561 Right knee pain, locking and swelling. History of surgery. TECHNIQUE: Multiplanar, multisequence imaging of the right knee is performed without IV contrast. FINDINGS: Postsurgical change of prior ACL graft reconstruction. There is rupture of the graft. Only a miniscul e fiber remains intact, coronal images 18 and 19. PCL and LCL complex appear intact. Mild edema on either side of the intact MCL. There is a large bucket-handle tear of the medial meniscus with large flipped fragment located centra lly and anteriorly. There is minimal undersurface fraying of the posterior horn of the lateral meniscus, coronal image 24 and sagittal image 26. Partially discoid lateral meniscus. Overall bicompartmental articular cartilage volumes are maintained. Minimal superficial fraying along the cartilage of the medial patellar facet. There is a moderate to large knee joint effusion. Suspect a 3.2 x 2.2 x 0.8 cm effusion within the semimembranosus-MCL bursa. Normal popliteal artery anatomy and muscle bulk. No suspicious bone marrow replacement. Extensor mechanism is intact with intermediate signal at the quadriceps insertion and deep fibers of the proximal patellar tendon. Extensive postsurgical changes within Hoffa's fat. IMPRESSION: 1. Status post ACL graft reconstruction with graft rupture. Only a thin miniscule fiber is seen intac t. 2. Grade 1 MCL sprain. 3. Large bucket-handle tear of the medial meniscus with the sizable meniscal fragment flipped anterio rly and centrally. 4. Partially discoid lateral meniscus. Suggestion of some fraying or early tear along the tibial cynthia cular surface of the posterior horn. 5. Reactive moderate to large joint effusion and a small to moderate-sized 3.2 x 2.2 cm effusion of t he semimembranosus-MCL bursa. 6. Mild insertional quadriceps and mild proximal patellar tendinosis.
== END | disposition home or self-care (01) ==
LOC: RADMRIMAIN 13:37
PROVIDERS: ATTEND Orthopaedic Surgery
DX: S83.411A Sprain of medial collateral ligament of right knee, initial encounter (principal); S83.241A Other tear of medial meniscus, current injury, right knee, initial encounter; M25.461 Effusion, right knee

== ENCOUNTER → 2023-01-01 | Outpatient (CLI) | payer BC ==
[2023-01-02 02:40] LABS: Basophils # (A) 0.04 X 10*3/uL (0.00-0.10); Basophils % (A) 0.6 %; Eosinophils % (A) 1.4 %; HCT 45.8 % (39.6-50.0); HGB 15.7 d/dL (12.0-15.0); Lymphocytes # (A) 1.93 X 10*3/uL (0.90-5.00); Lymphocytes % (A) 27.9 %; MCH 32.6 pg (27.0-32.0); MCHC 34.3 d/dL (32.0-37.0); Mean Platelet Volume 10.7 FL (9.5-12.2); Monocytes # (A) 0.65 X 10*3/uL (0.20-1.00); Monocytes % (A) 9.4 %; NRBC Per 100 WBC 0 X 10*3/uL (0.00-0.01); Neutrophils # (A) 4.18 X 10*3/uL (1.80-7.70); Neutrophils % (A) 60.6 %; Platelet Count 254 X 10*3/uL (140-440); RBC 4.82 X 10*6/uL (4.40-5.60); RDW 13.5 % (11.5-14.5); WBC 6.91 X 10*3/uL (4.50-10.00)
[2023-01-02 22:34] LABS: Anion Gap 13.1 mmol/L (4.00-12.00); Carbon Dioxide 23.9 mmol/L (21.6-31.8); Potassium 4.7 mmol/L (3.5-5.5)
== END | disposition home or self-care (01) ==
LOC: LABPAT 15:55
PROVIDERS: ATTEND Orthopaedic Surgery
DX: Z01.818 Encounter for other preprocedural examination (principal); M23.91 Unspecified internal derangement of right knee
CPT/HCPCS: 36415; 80051; 85025; 93005

== ENCOUNTER → 2023-02-20 | Outpatient (CLI) | payer BC ==
[2023-02-20 20:32] LABS: Anion Gap 11.2 mmol/L (4.00-12.00); Carbon Dioxide 27.8 mmol/L (21.6-31.8); Potassium 4.5 mmol/L (3.5-5.5)
[2023-02-20 21:40] LABS: Basophils # (A) 0.04 X 10*3/uL (0.00-0.10); Basophils % (A) 0.5 %; Eosinophils # (A) 0.04 X 10*3/uL (0.04-0.35); Eosinophils % (A) 0.5 %; HCT 48.5 % (39.6-50.0); HGB 17.2 d/dL (13.0-17.0); Lymphocytes # (A) 1.72 X 10*3/uL (0.90-5.00); Lymphocytes % (A) 21.1 %; MCH 33.3 pg (27.0-32.0); MCHC 35.5 d/dL (32.0-37.0); MCV 93.8 FL (80.0-97.0); Mean Platelet Volume 10.8 FL (9.5-12.2); Monocytes # (A) 0.59 X 10*3/uL (0.20-1.00); Monocytes % (A) 7.2 %; NRBC Per 100 WBC 0 X 10*3/uL (0.00-0.01); Neutrophils # (A) 5.75 X 10*3/uL (1.80-7.70); Neutrophils % (A) 70.6 %; Platelet Count 285 X 10*3/uL (140-440); RBC 5.17 X 10*6/uL (4.40-5.60); RDW 12.4 % (11.5-14.5); WBC 8.15 X 10*3/uL (4.50-10.00)
== END | disposition home or self-care (01) ==
LOC: LABPAT 15:41
PROVIDERS: ATTEND Orthopaedic Surgery
DX: Z01.812 Encounter for preprocedural laboratory examination (principal); T84.490A Other mechanical complication of muscle and tendon graft, initial encounter; R94.31 Abnormal electrocardiogram [ECG] [EKG]; Y82.9 Unspecified medical devices associated with adverse incidents
CPT/HCPCS: 80051; 85025; 93005

== ENCOUNTER 2023-03-01 05:50 | Day surgery (SDC) | payer BC ==
--- NOTE | 2023-02-28 15:56 | HP ---
HISTORY AND PHYSICAL SCHEDULED DATE OF SURGERY: 03/01/2023. HISTORY OF PRESENT ILLNESS: Holland Michaud is a 28-year-old gentleman, seen with right knee pain and instability consistent with ACL graft tear and meniscal tear. We discussed options regarding treatment. He elected to proceed with right knee arthroscopy to include allograft ACL reconstruction revision and partial medial meniscectomy versus repair. Consent was obtained. PAST MEDICAL HISTORY: Noncontributory. PAST SURGICAL HISTORY: Right knee arthroscopy with ACL reconstruction. DAILY MEDICATIONS: None. ALLERGIES: None . SOCIAL HISTORY: He vapes. PHYSICAL EVALUATION OF THE RIGHT KNEE: His range of motion is 0 to 130 degrees. Mild effusion. Tenderness, medial joint line. Positive medial Edith's. +2 Karsten. Positive pivot shift. Collateral ligaments are stable. Distal neurovascular exam is intact. IMAGING STUDIES: Radiographs of the right knee revealed a stable Endobutton in the femur and tibia. An MRI of the right knee revealed a bucket-handle medial meniscal tear as well as an ACL graft tear. IMPRESSION: Internal derangement of right knee with medial meniscal tear and anterior cruciate ligament graft tear. PLAN: Right knee arthroscopy with revision ACL reconstruction, partial medial meniscectomy versus repair, and debridement. MMODL / IJN: [id number] /
[2023-03-01] MEDS ORDERED: DEXAMETHASONE SOD PHOSPHATE 4 MG/ML 1 ML VIAL IV ONE (06:07)
[2023-03-01] MEDS ORDERED: LIDOCAINE 1% (10MG/ML) FOR IV START INTRADERMA PRN (06:07)
[2023-03-01] MEDS ORDERED: LACTATED RINGERS 1,000 ML IV SCH (06:07)
[2023-03-01] MEDS ORDERED: ONDANSETRON 4 MG/2 ML VIAL IVP ONE (06:07)
[2023-03-01] MEDS ORDERED: MIDAZOLAM 2 MG/2 ML VIAL IV PRN (06:07)
[2023-03-01] MEDS ORDERED: fentaNYL (PF) 50 MCG/ML 2 ML AMP IVP ONE (06:57)
--- NOTE | 2023-03-01 09:09 | P.ANPRN ---
Procedure Note - Anesthesia - Nerve Block Performed Right Adductor Canal Single Time Out Performed: Yes ([id number]) Date of Procedure: 03/01/23 Procedure Start Time: 06:57 Procedure Stop Time: 07:02 Location of Patient: PreOp Indication: Acute Post-Operative Pain, Requested by Surgeon Specifically requested for management of pain by DrSandra: Hari Ruiz Sedation Type: Sedate with meaningful contact maintained Preparation: Sterile Prep Position: Supine Catheter: None Needle Types: Pajunk Needle Gauge: 21 Ultrasound used to visualize needle placement: Yes Ultrasound used to observe medication spread: Yes Injectate: 0.5% Ropivacaine (see comment for volume) (30cc) Blood Aspirated: No Pain Paresthesia on Injection Noted: No Resistance on Injection: Normal Image Stored and Saved: Yes Events: Uneventful and Well Tolerated
[2023-03-01] MEDS ORDERED: LACTATED RINGERS 1,000 ML IV ONE (09:25)
--- NOTE | 2023-03-01 09:51 | P.OP ---
Date of Procedure: 03/01/23 Preoperative Diagnosis: Internal derangement right knee with ACL graft tear and medial meniscal Postoperative Diagnosis: 1. ACL graft tear right knee 2. Bucket-handle white zone medial meniscal tear right knee 3. Reactive synovitis medial, lateral and suprapatellar compartments right knee Procedure(s) Performed: 1. Arthroscopic revision allograft ACL reconstruction right knee 2. Arthroscopic partial medial meniscectomy right knee 3. Arthroscopic partial synovectomy medial, lateral and suprapatellar compartments right knee Implants: 2Arthrex Endobutton's Anesthesia: GETA, regional (Adductor canal block) Surgeon: Hari Ruiz Accredited Farm Manager #1: Jose Sands Estimated Blood Loss (ml): 12 Pathology: none sent Condition: stable Disposition: PACU Indications for Procedure: 28-year-old gentleman seen with the right knee allograft ACL tear and medial meniscal tear. We discussed options for treatment. He elected to proceed with arthroscopy to include allograft revision ACL reconstruction. Operative Findings: see description of procedure Description of Procedure: Patient was taken to the operative suite. He received an abductor canal block for postoperative pain management by the department of anesthesia. Patient underwent a general anesthetic by the department of anesthesia. Patient was given preoperative antibiotics. The right lower extremity was placed in a well- padded arthroscopic leg andrews. The right leg was prepped and draped in the normal sterile orthopedic fashion. A lateral parapatellar and suprapatellar incision was made. Trochars were inserted. Arthroscopy was initiated. Suprapatellar pouch revealed diffuse thick reactive synovitis. The patellofemoral joint appeared to articulate congruently. There was no chondromalacia present. The scope was guided into the medial gutter. No loose bodies or plica were identified. The scope was then guided into the medial compartment. A medial parapatellar incision was made. Trocar inserted followed by probe. There was a bucket-handle tear involving the posterior horn medial meniscus. Once I reduced it and noted it was a white zone tear with maceration. I guided the scope into the intercondylar notch I noted a complete tear of the ACL allograft. At this point a new allograft was chosen and opened on the back table at which time Matthew RENTERIA began preparing that graft for implantation. I guided the scope back into the medial compartment. I again probed the medial meniscus I do not think it was repairable. A partial medial meniscectomy getting down to stable meniscal tissue. I performed a partial synovectomy decompressing the reactive synovitis. The residual meniscus was probed and was found to be stable. There was good decompression of the synovitis. The scope and probe were then guided into lateral compartment. Lateral meniscus was probed and was found to be stable. There was no significant chondromalacia present. There was some thick reactive synovitis anteriorly. I performed a partial synovectomy decompressing the thick reactive synovitis involving lateral compartment. Shaver was now removed. There was good decompression of the synov itis. I now guided the scope back into the intercondylar notch. I now began debriding out the residual stumps of allograft from both the tibial and femoral side. In regards the femoral side I was able to completely remove all of the suture material and the residual graft from the femoral tunnel exposing the entire femoral tunnel without difficulty. The posterior cruciate ligament was probed and was found to be stable. At this point Matthew RENTERIA came to the operative field and we passed the guidewire into the center portion of her previous femoral tunnel. I now introduced a reamer and ream that tunnel to 10 mm which gave us some fresh bleeding bone along the periphery of the tunnel. We now passed our shuttle suture through that. I now turned the attention to the tibial side. Our tibial tunnel guide was positioned along the previous tibial tunnel. I now retro-reamed a 10.5 mm tibial tunnel again getting down to fresh bone along the periphery of the tunnel. We now passed our shuttle suture through that tunnel was well. The graft now was brought to the operative field. We now shuttled the femoral side first watching carefully is that Endobutton with through our guide hole and slipped and I made sure was secure. I held the graft suture limbs well Matthew RENTERIA shuttle the graft into our femoral tunnel which we had a nice fit. We now shuttled our tibial tunnel sutures through our tibial tunnel graft utilizing our shuttle stitch. We now were able to bring the entire graft into that tibial tunnel without difficulty. We now fully extended the knee. I removed the scope from the joint. We now dissected down to our tibial tunnel sutures. With the knee if in full extension we used a revision 14 mm Arthrex Endobutton and secured our tibial sutures. We then drilled a hole for placement of an Arthrex anchor with our internal suture. I now passed that internal suture through the eyelet of a Arthrex 4.75 swivel lock anchor. The anchor was placed into a predrilled hole. I held the eyelet in position while Matthew RENTERIA tension that internal brace suture and deployed anchor with good fixation noted. All residual suture limbs were clipped. We now reinstitute arthroscopy. I guided the scope and see her collar notch. The ACL graft looked in excellent position and we had good range of motion with no impingement along that intercondylar notch. With the knee in full extension Matthew RENTERIA now again tension the femoral side of the sutures making sure we had appropriate tensioning and we did. All residual suture limbs on the femoral side were cli pped. We took the knee through range of motion noted good position of our grafts excellent stability about the knee. The scope was in guided back into the suprapatellar compartment. I introduced a motorized shaver into the suprapatellar compartment. I debrided some piecemeal fragments of meniscus I encountered and performed a partial synovectomy. Shaver was now removed. I took one more look around the entire knee and noted no residual debris. Instruments were now removed from the joint. The portal sites along with that medial incision were repaired with nylon suture. Sterile dressings were applied. The patient was placed into a DEIRDRE hose followed by knee immobilizer.. No tourniquet was utilized. The patient was awakened, transferred to a bed and taken to recovery stable satisfactory condition. Matthew RENTERIA assisted in all aspects of this procedure.
[2023-03-01 09:53] VITALS: TEMP 98
[2023-03-01] MEDS: HYDROmorphone 0.5 MG/0.5 ML SYRINGE IVP PRN ×3 (10:03→10:35)
[2023-03-01] MEDS ORDERED: HYDROcodone/APAP 7.5-325MG 1 EACH TAB ONE (11:11)
[2023-03-01 11:16] VITALS: RESP 18
[2023-03-01 11:28] VITALS: BP 129/84; PULSE 100
== END 2023-03-01 11:52 | disposition home or self-care (01) ==
LOC: OR 05:50
PROVIDERS: ATTEND Orthopaedic Surgery
DX: T84.89XA Other specified complication of internal orthopedic prosthetic devices, implants and grafts, initial encounter (principal); S83.241A Other tear of medial meniscus, current injury, right knee, initial encounter; F17.200 Nicotine dependence, unspecified, uncomplicated; F41.8 Other specified anxiety disorders; F90.9 Attention-deficit hyperactivity disorder, unspecified type
CPT/HCPCS: 29881; 27487; 64447; J2250; J1100; J2405; J0690; J3010; J1170

== ENCOUNTER 2023-04-04 21:14 | Emergency (ER) | payer BC ==
[2023-04-04 21:23] VITALS: TEMP 98.4
[2023-04-04 21:57] LABS: Basophils % (A) 0 %; Eosinophils # (A) 0.1 k/uL (0-0.7); Eosinophils % (A) 2 %; HCT 47.4 % (39.0-53.0); HGB 16.1 gm/dL (13.0-17.5); Lymphocytes # (A) 2.4 k/uL (1.0-4.8); Lymphocytes % (A) 28 %; MCH 32.5 pg (25.0-35.0); MCHC 34.1 g/dL (31.0-37.0); MCV 95.6 fL (80.0-100.0); Mean Platelet Volume 7.4; Monocytes # (A) 0.6 k/uL (0-1.0); Monocytes % (A) 7 %; Neutrophils # (A) 5.5 k/uL (1.3-7.7); Neutrophils % (A) 62 %; Platelet Count 215 k/uL (150-450); RBC 4.96 m/uL (4.30-5.90); RDW 12.5 % (11.5-15.5); WBC 8.8 k/uL (3.8-10.6)
[2023-04-04 22:25] LABS: ALT 44 U/L (4-49); AST 45 U/L (17-59); African American GFR (CKD) >90 (>60 ml/min/1.73 sqM); Albumin 4.4 g/dL (3.5-5.0); Alkaline Phosphatase 98 U/L (38-126); Anion Gap 10 mmol/L; Blood Urea Nitrogen 13 mg/dL (9-20); Carbon Dioxide 22 mmol/L (22-30); Chloride 107 mmol/L (98-107); Glucose 81 mg/dL (74-99); Non-African American GFR(CKD) >90 (>60 ml/min/1.73 sqM); Potassium 3.6 mmol/L (3.5-5.1); Sodium 139 mmol/L (137-145); Total Bilirubin 0.6 mg/dL (0.2-1.3); Total Protein 7.1 g/dL (6.3-8.2)
--- NOTE | 2023-04-04 22:30 | ED ---
Seizure HPI - General Chief Complaint: Seizure Stated Complaint: Seizure Time Seen by Provider: 04/04/23 21:28 Source: EMS Mode of arrival: EMS Limitations: no limitations - History of Present Illness Complaint: possible seizure -: minutes(s) Description of Episode: loss of consciousness, tonic-clonic movement -: second(s) Witnessed: yes - by bystander Trauma: No Possible Precipitating Event: none Associated Symptoms: denies other symptoms Treatments Prior to Arrival: none - Related Data Home Medications Medication Instructions Recorded Confirmed diphenhydrAMINE [Benadryl] 25 mg PO HS PRN 09/14/21 03/01/23 QUEtiapine FUMARATE 1 tab PO DAILY 03/01/23 03/01/23 Venlafaxine HCl ER [Effexor XR] 1 tab PO DAILY 03/01/23 03/01/23 hydrOXYzine HCL 1 tab PO DAILY PRN 03/01/23 03/01/23 Previous Rx's Medication Instructions Recorded Cephalexin [Keflex] 500 mg PO Q6HR 7 Days #28 cap 03/01/23 HYDROcodone/APAP 10-325MG [[place] 1 tab PO Q6HR PRN 7 Days #28 tab 03/01/23 10-325] Ibuprofen 800 mg PO Q8H PRN #40 tab 03/01/23 Allergies Allergy/AdvReac Type Severity Reaction Status Date / Time adhesive AdvReac Rash/Hives Verified 04/04/23 21:21 Review of Systems ROS Statement: Those systems with pertinent positive or pertinent negative responses have been documented in the HPI. ROS Other: All systems not noted in ROS Statement are negative. Constitutional: Denies: fever, chills, weakness Eyes: Denies: vision change Respiratory: Denies: cough, dyspnea Cardiovascular: Denies: chest pain, palpitations, edema Gastrointestinal: Denies: abdominal pain, vomiting, diarrhea Genitourinary: Denies: dysuria, hematuria Musculoskeletal: Denies: back pain Skin: Denies: rash Neurological: Denies: headache, weakness, numbness, confusion Past Medical History Past Medical History: Hypertension Additional Past Medical History / Comment(s): anxiety, adhd, bipolar History of Any Multi-Drug Resistant Organisms: None Reported Past Surgical History: Orthopedic Surgery Additional Past Surgical History / Comment(s): ankle, knee, and left leg surgery Past Psychological History: Anxiety, Depression, Panic Disorder Smoking Status: Current every day smoker, Vaper General Exam General appearance: alert, in no apparent distress Head exam: Present: atraumatic, normocephalic Eye exam: Present: normal appearance, PERRL, EOMI. Absent: scleral icterus, conjunctival injection, nystagmus ENT exam: Present: normal oropharynx Neck exam: Present: normal inspection, full ROM. Absent: meningismus Respiratory exam: Present: normal lung sounds bilaterally. Absent: respiratory distress, wheezes, rales, rhonchi, stridor Cardiovascular Exam: Present: regular rate, normal rhythm, normal heart sounds. Absent: systolic murmur, diastolic murmur, rubs, gallop GI/Abdominal exam: Present: soft. Absent: distended, tenderness, guarding, rebound, rigid, mass Extremities exam: Present: normal inspection, normal capillary refill. Absent: pedal edema, calf tenderness Back exam: Present: normal inspection. Absent: CVA tenderness (R), CVA tenderness (L) Neurological exam: Present: alert, oriented X3, CN II-XII intact. Absent: motor sensory deficit Skin exam: Present: warm, dry, intact, normal color. Absent: rash Course Vital Signs 04/04/23 04/04/23 21:17 22:49 Temperature 98.4 F Pulse Rate 74 75 Respiratory 19 17 Rate Blood Pressure 150/103 132/90 O2 Sat by Pulse 98 99 Oximetry Medical Decision Making - Medical Decision Making This patient is 28-year-old man here to have evaluation after brief generalized tonic-clonic seizure. The patient has returned to baseline. He does not have any neurologic deficits. No headache. The patient's workup unremarkable here. Discussed further care and follow-up, patient will see neurologist. Discussed [place] law includes no driving until cleared. Discussed return parameters. Was pt. sent in by a medical professional or institution (, PA, IT ENGINEER, urgent care, hospital, or prison...) When possible be specific @ -[No] Did you speak to anyone other than the patient for history (EMS, parent, family, police, friend...)? What history was obtained from this source @ -[No] Did you review nursing and triage notes (agree or disagree)? Why? @ -[I reviewed and agree with nursing and triage notes] Were old charts reviewed (outside hosp., previous admission, EMS record, old EKG, old radiological studies, urgent care reports/EKG's, prison records)? Report findings @ -[No old charts were reviewed] Differential Diagnosis (chest pain, altered mental status, abdominal pain women, abdominal pain men, vaginal bleeding, weakness, fever, dyspnea, syncope, headache, dizziness, GI bleed, back pain, seizure, CVA, palpatations, mental health, musculoskeletal)? @ -[Differential Seizure: Recurrent seizure disorder, febrile seizure, alcohol withdrawal, stimulants, meningitis, encephalitis, intercranial hemorrhage, intracranial tumor, stroke, eclampsia, thyrotoxicosis, hypocalcemia, hyponatremia, hypernatremia, hypomagnesemia, psychogenic, this is not meant to be an all-inclusive list. EKG interpreted by me (3pts min.). @ -[As above] X-rays interpreted by me (1pt min.). @ -[None done] CT interpreted by me (1pt min.). @ -[None done] U/S interpreted by me (1pt. min.). @ -[None done] What testing was considered but not performed or refused? (CT, X-rays, U/S, labs)? Why? @ -[Computed tomography scan is considered, but the patient has returned to baseline, the seizure was uncomplicated, therefore will have patient follow with neurology for further workup including imaging What meds were considered but not given or refused? Why? @ -[None] Did you discuss the management of the patient with other professionals (professionals i.e. , PA, IT ENGINEER, lab, RT, psych nurse, older adult social work specialist, engine generator assembler, teacher, house officer, case fitter)? Give summary @ -[No] Was smoking cessation discussed for >3mins.? @ -[No] Was critical care preformed (if so, how long)? @ -[No] Were there social determinants of health that impacted care today? How? (Homelessness, low income, unemployed, alcoholism, drug addiction, transportation, low edu. Level, literacy, decrease access to med. care, alf, rehab)? @ -[No] Was there de-escalation of care discussed even if they declined (Discuss DNR or withdrawal of care, Hospice)? DNR status @ -[No] What co-morbidities impacted this encounter? (DM, HTN, Smoking, COPD, CAD, Cancer, CVA, ARF, Chemo, Hep., AIDS, mental health diagnosis, sleep apnea, morbid obesity)? @ -[None] Was patient admitted / discharged? Hospital course, mention meds given and route, prescriptions, significant lab abnormalities, going to OR and other pertinent info. @ -[Patient stable for discharge, see above Undiagnosed new problem with uncertain prognosis? @ -[No] Drug Therapy requiring intensive monitoring for toxicity (Heparin, Nitro, Insulin, Cardizem)? @ -[No] Were any procedures done? @ -[No] Diagnosis/symptom? @ -[Acute generalized tonic-clonic seizure Acute, or Chronic, or Acute on Chronic? @ -[ acute Uncomplicated (without systemic symptoms) or Complicated (systemic symptoms)? @ -[Uncomplicated Side effects of treatment? @ -[No] Exacerbation, Progression, or Severe Exacerbation? @ -[No] Poses a threat to life or bodily function? How? (Chest pain, [place], [place], pneumonia, PE, COPD, DKA, ARF, appy, cholecystitis, CVA, Diverticulitis, Homicidal, Suicidal, threat to staff... and all critical care pts) @ -[No] - Lab Data Result diagrams: 04/04/23 21:39 04/04/23 21:39 Lab Results 04/04/23 04/04/23 Range/Units 21:39 21:39 WBC 8.8 (3.8-10.6) k/uL RBC 4.96 (4.30-5.90) m/uL Hgb 16.1 (13.0-17.5) gm/dL Hct 47.4 (39.0-53.0) % MCV 95.6 (80.0-100.0) fL MCH 32.5 (25.0-35.0) pg MCHC 34.1 (31.0-37.0) g/dL RDW 12.5 (11.5-15.5) % Plt Count 215 (150-450) k/uL MPV 7.4 Neutrophils % 62 % Lymphocytes % 28 % Monocytes % 7 % Eosinophils % 2 % Basophils % 0 % Neutrophils # 5.5 (1.3-7.7) k/uL Lymphocytes # 2.4 (1.0-4.8) k/uL Monocytes # 0.6 (0-1.0) k/uL Eosinophils # 0.1 (0-0.7) k/uL Basophils # 0.0 (0-0.2) k/uL Sodium 139 (137-145) mmol/L Potassium 3.6 (3.5-5.1) mmol/L Chloride 107 (98-107) mmol/L Carbon Dioxide 22 (22-30) mmol/L Anion Gap 10 mmol/L BUN 13 (9-20) mg/dL Creatinine 0.98 (0.66-1.25) mg/dL Est GFR (CKD-EPI)AfAm >90 (>60 ml/min/1.73 sqM) Est GFR (CKD-EPI)NonAf >90 (>60 ml/min/1.73 sqM) Glucose 81 (74-99) mg/dL Calcium 9.0 (8.4-10.2) mg/dL Total Bilirubin 0.6 (0.2-1.3) mg/dL AST 45 (17-59) U/L ALT 44 (4-49) U/L Alkaline Phosphatase 98 (38-126) U/L Total Protein 7.1 (6.3-8.2) g/dL Albumin 4.4 (3.5-5.0) g/dL Disposition Clinical Impression: Generalized seizure Disposition: HOME SELF-CARE Condition: Good Instructions (If sedation given, give patient instructions): Seizure/Epilepsy Discharge Instructions & Follow-Up Is patient prescribed a controlled substance at d/c from ED?: No Referrals: None,Stated [Primary Care Provider] - 1-2 days
[2023-04-04 22:53] VITALS: BP 132/90; PULSE 75; RESP 17
== END 2023-04-04 22:51 | disposition home or self-care (01) ==
LOC: EC 21:14
DX: G40.409 Other generalized epilepsy and epileptic syndromes, not intractable, without status epilepticus (principal); I10 Essential (primary) hypertension; F41.9 Anxiety disorder, unspecified; F32.A Depression, unspecified; F17.290 Nicotine dependence, other tobacco product, uncomplicated; Z79.899 Other long term (current) drug therapy; Z91.09 Other allergy status, other than to drugs and biological substances
CPT/HCPCS: 36415; 80053; 85025; 99285

== ENCOUNTER 2023-04-24 11:55 | Emergency (ER) | payer BC ==
[2023-04-24 12:15] VITALS: TEMP 97.5
--- NOTE | 2023-04-24 12:30 | ED ---
General Adult HPI - General Chief complaint: Overdose Stated complaint: mental health Time Seen by Provider: 04/24/23 12:00 Source: patient, police, EMS, RN notes reviewed, old records reviewed Mode of arrival: EMS - History of Present Illness Initial comments: This is a 28-year-old male who presents emergency department because he told EMS that he took 6 Seroquel when he is only supposed take 2. Patient tells me that he told him that because he was feeling suicidal and he wanted to come the hospital. Patient states he truly only took 2 Seroquel and he is no longer feeling suicidal. Patient denies homicidal ideations. Patient denies taking anything else. Patient denies any headache patient denies numbness weakness. Patient's chest pain difficulty breathing or shortness of breath or palpitations any fever chills or cough per patient denies any abdominal pain. - Related Data Home Medications Medication Instructions Recorded Confirmed QUEtiapine FUMARATE 100 mg PO HS 03/01/23 04/24/23 Venlafaxine HCl ER [Effexor XR] 150 mg PO DAILY 03/01/23 04/24/23 Allergies Allergy/AdvReac Type Severity Reaction Status Date / Time adhesive AdvReac Rash/Hives Verified 04/24/23 18:07 Review of Systems ROS Statement: Those systems with pertinent positive or pertinent negative responses have been documented in the HPI. ROS Other: All systems not noted in ROS Statement are negative. Past Medical History Past Medical History: Hypertension Additional Past Medical History / Comment(s): anxiety, adhd, bipolar History of Any Multi-Drug Resistant Organisms: None Reported Past Surgical History: Orthopedic Surgery Additional Past Surgical History / Comment(s): ankle, knee, and left leg surgery Past Psychological History: Anxiety, Depression, Panic Disorder Smoking Status: Current every day smoker, Vaper Past Alcohol Use History: Abuse, Daily Past Drug Use History: Marijuana General Exam - General Exam Comments Initial Comments: GENERAL: Patient is well-developed and well-nourished. Patient is nontoxic and well- hydrated and is in no acute distress. ENT: Neck is soft and supple. No significant lymphadenopathy is noted. Oropharynx is clear. Moist mucous membranes. Neck has full range of motion without eliciting any pain. EYES: The sclera were anicteric and conjunctiva were pink and moist. Extraocular movements were intact and pupils were equal round and reactive to light. Eyelids were unremarkable. PULMONARY: Unlabored respirations. Good breath sounds bilaterally. No audible rales rhonchi or wheezing was noted. CARDIOVASCULAR: There is a regular rate and rhythm without any murmurs gallops or rubs. ABDOMEN: Soft and nontender with normal bowel sounds. SKIN: Skin is clear with no lesions or rashes and otherwise unremarkable. NEUROLOGIC: Patient is alert and oriented x3. Cranial nerves II through XII are grossly intact. Motor and sensory are also intact. Normal speech, volume and content. Symmetrical smile. MUSCULOSKELETAL: Normal extremities with adequate strength and full range of motion. No lower extremity swelling or edema. No calf tenderness. LYMPHATICS: No significant lymphadenopathy is noted PSYCHIATRIC: Normal psychiatric evaluation. Course Vital Signs 04/24/23 11:59 Temperature 97.5 F L Pulse Rate 71 Respiratory 16 Rate Blood Pressure 106/66 O2 Sat by Pulse 98 Oximetry Medical Decision Making - Medical Decision Making Was pt. sent in by a medical professional or institution (, PA, HIGH SCHOOL SOCIAL STUDIES TUTOR, urgent care, hospital, or correction...) When possible be specific @ -No Did you speak to anyone other than the patient for history (EMS, parent, family, police, friend...)? What history was obtained from this source @ -No Did you review nursing and triage notes (agree or disagree)? Why? @ -I reviewed and agree with nursing and triage notes Were old charts reviewed (outside hosp., previous admission, EMS record, old EKG, old radiological studies, urgent care reports/EKG's, correction records)? Report findings @ -No old charts were reviewed Differential Diagnosis (chest pain, altered mental status, abdominal pain women, abdominal pain men, vaginal bleeding, weakness, fever, dyspnea, syncope, headache, dizziness, GI bleed, back pain, seizure, CVA, palpatations, mental health, musculoskeletal)? @ -Differential Mental Health Depression, anxiety, bipolar, psychosis, schizophrenia, borderline personality, situational depression, adjustment disorder, behavioral disorder, brain tumor, malingering, substance abuse, encephalopathy, medication reaction, dementia, hypothyroidism, degenerative neurologic disorder, lupus.... This is not meant to be all-inclusive list EKG interpreted by me (3pts min.). @ -As above X-rays interpreted by me (1pt min.). @ -None done CT interpreted by me (1pt min.). @ -None done U/S interpreted by me (1pt. min.). @ -None done What testing was considered but not performed or refused? (CT, X-rays, U/S, labs)? Why? @ -None What meds were considered but not given or refused? Why? @ -None Did you discuss the management of the patient with other professionals (professionals i.e. Dr., PA, HIGH SCHOOL SOCIAL STUDIES TUTOR, lab, RT, psych nurse, social welfare administrator, blockmason, teacher, medical scientific officer, egg caser)? Give summary @ -I spoke with the psychiatric nurse Was smoking cessation discussed for >3mins.? @ -No Was critical care preformed (if so, how long)? @ -No Were there social determinants of health that impacted care today? How? (Homelessness, low income, unemployed, alcoholism, drug addiction, transportation, low edu. Level, literacy, decrease access to med. care, [facility], rehab)? @ -No Was there de-escalation of care discussed even if they declined (Discuss DNR or withdrawal of care, Hospice)? DNR status @ -No What co-morbidities impacted this encounter? (DM, HTN, Smoking, COPD, CAD, Cancer, CVA, ARF, Chemo, Hep., AIDS, mental health diagnosis, sleep apnea, morbid obesity)? @ -None Was patient admitted / discharged? Hospital course, mention meds given and route, prescriptions, significant lab abnormalities, going to OR and other pertinent info. @ -Patient was evaluated by EPS he spoke with the psychiatrist they determined that the patient could go home with safety plan. Undiagnosed new problem with uncertain prognosis? @ -No Drug Therapy requiring intensive monitoring for toxicity (Heparin, Nitro, Insulin, Cardizem)? @ -No Were any procedures done? @ -No Diagnosis/symptom? @ -Suicidal ideations Acute, or Chronic, or Acute on Chronic? @ -Acute Uncomplicated (without systemic symptoms) or Complicated (systemic symptoms)? @ -Complicated Side effects of treatment? @ -No Exacerbation, Progression, or Severe Exacerbation? @ -No Poses a threat to life or bodily function? How? (Chest pain, [place], [place], pneumonia, PE, COPD, DKA, ARF, appy, cholecystitis, CVA, Diverticulitis, Homicidal, Suicidal, threat to staff... and all critical care pts) @ -No Diagnosis/symptom? @ -Alcohol intoxication Acute, or Chronic, or Acute on Chronic? @ -Acute Uncomplicated (without systemic symptoms) or Complicated (systemic symptoms)? @ -Uncomplicated Side effects of treatment? @ -none Exacerbation, Progression, or Severe Exacerbation] @ -no Poses a threat to life or bodily function? @ -no - Lab Data Lab Results 04/24/23 04/24/23 Range/Units 12:33 12:33 Salicylates <1.0 mg/dL Urine Opiates Screen Not Detected (NotDetected) Ur Oxycodone Screen Not Detected (NotDetected) Urine Methadone Screen Not Detected (NotDetected) Ur Propoxyphene Screen Not Detected (NotDetected) Acetaminophen <10.0 ug/mL Ur Barbiturates Screen Not Detected (NotDetected) U Tricyclic Antidepress Detected H (NotDetected) Ur Phencyclidine Scrn Not Detected (NotDetected) Ur Amphetamines Screen Not Detected (NotDetected) U Methamphetamines Scrn Not Detected (NotDetected) U Benzodiazepines Scrn Not Detected (NotDetected) Urine Cocaine Screen Not Detected (NotDetected) U Marijuana (THC) Screen Not Detected (NotDetected) Disposition Clinical Impression: Overdose, Suicidal ideation, Alcohol intoxication Disposition: HOME SELF-CARE Condition: Good Instructions (If sedation given, give patient instructions): Adult Overdose (ED), Suicide Prevention (ED) Is patient prescribed a controlled substance at d/c from ED?: No Referrals: None,Stated [Primary Care Provider] - 1-2 days Time of Disposition: 19:15
[2023-04-24 13:29] LABS: Acetaminophen <10.0 ug/mL; Salicylate <1.0 mg/dL
[2023-04-24 13:47] LABS: Amphetamine Screen,Urine Not Detected (NotDetected); Barbiturate Screen,Urine Not Detected (NotDetected); Benzodiazepines Screen,Urine Not Detected (NotDetected); Cocaine Screen,Urine Not Detected (NotDetected); Methadone Screen, Urine Not Detected (NotDetected); Opiate Screen,Urine Not Detected (NotDetected); Oxycodone Screen, Urine Not Detected (NotDetected); Phencyclidine Screen,Urine Not Detected (NotDetected); Tricyclic Antidepressant,Urine Detected (NotDetected); Urn Cannabinoid Scrn Not Detected (NotDetected)
[2023-04-24 19:49] VITALS: BP 138/91; PULSE 110; RESP 18
== END 2023-04-24 19:44 | disposition home or self-care (01) ==
LOC: EC 11:55
DX: T43.591A Poisoning by other antipsychotics and neuroleptics, accidental (unintentional), initial encounter (principal); F10.129 Alcohol abuse with intoxication, unspecified; R45.851 Suicidal ideations; I10 Essential (primary) hypertension; F41.9 Anxiety disorder, unspecified; F32.A Depression, unspecified; F12.90 Cannabis use, unspecified, uncomplicated; F17.290 Nicotine dependence, other tobacco product, uncomplicated; Z79.899 Other long term (current) drug therapy; Z91.09 Other allergy status, other than to drugs and biological substances
CPT/HCPCS: 36415; 80143; 80179; 80306; 82075; 99285

== ENCOUNTER 2023-05-26 17:22 | Emergency (ER) | payer BC ==
[2023-05-26 17:36] VITALS: TEMP 97.9
[2023-05-26 18:17] LABS: Basophils % (A) 0 %; Eosinophils # (A) 0.1 k/uL (0-0.7); Eosinophils % (A) 1 %; HCT 53.8 % (39.0-53.0); HGB 18.8 gm/dL (13.0-17.5); Lymphocytes # (A) 2.3 k/uL (1.0-4.8); Lymphocytes % (A) 24 %; MCH 33.2 pg (25.0-35.0); MCHC 34.9 g/dL (31.0-37.0); MCV 95.2 fL (80.0-100.0); Mean Platelet Volume 7.3; Monocytes # (A) 0.6 k/uL (0-1.0); Monocytes % (A) 6 %; Neutrophils # (A) 6.3 k/uL (1.3-7.7); Neutrophils % (A) 67 %; Platelet Count 295 k/uL (150-450); RBC 5.65 m/uL (4.30-5.90); RDW 12.7 % (11.5-15.5); WBC 9.4 k/uL (3.8-10.6)
[2023-05-26 18:21] LABS: ALT 48 U/L (4-49); AST 47 U/L (17-59); African American GFR (CKD) >90 (>60 ml/min/1.73 sqM); Alkaline Phosphatase 107 U/L (38-126); Anion Gap 16 mmol/L; Blood Urea Nitrogen 12 mg/dL (9-20); Calcium 9.7 mg/dL (8.4-10.2); Carbon Dioxide 22 mmol/L (22-30); Chloride 107 mmol/L (98-107); Creatine Kinase 141 U/L (55-170); Glucose 89 mg/dL (74-99); Lipase 82 U/L (23-300); Magnesium 2.4 mg/dL (1.6-2.3); Non-African American GFR(CKD) 79 (>60 ml/min/1.73 sqM); Potassium 4.5 mmol/L (3.5-5.1); Sodium 145 mmol/L (137-145); Total Bilirubin 0.5 mg/dL (0.2-1.3); Total Protein 7.9 g/dL (6.3-8.2)
[2023-05-26 18:28] LABS: Alcohol 244 mg/dL
--- NOTE | 2023-05-26 19:02 | ED ---
Seizure HPI - General Chief Complaint: Seizure Stated Complaint: Seizure, ETOH Time Seen by Provider: 05/26/23 17:25 Source: patient, RN notes reviewed Mode of arrival: EMS - History of Present Illness Initial Comments: 28-year-old male history of his friend a history of seizures, schizoaffective disorder, history of alcohol abuse who is here today with PHP found wandering down the road. Lost he does admit to drinking alcohol today. He states he drank a fifth of liquor yesterday did drink beer this morning. He presents awake and alert but does appear somewhat intoxicated is able ambulate without difficulty. MD Complaint: possible seizure, other - Related Data Home Medications Medication Instructions Recorded Confirmed QUEtiapine FUMARATE 100 mg PO HS 03/01/23 04/24/23 Venlafaxine HCl ER [Effexor XR] 150 mg PO DAILY 03/01/23 04/24/23 Allergies Allergy/AdvReac Type Severity Reaction Status Date / Time adhesive AdvReac Rash/Hives Verified 05/26/23 17:28 Review of Systems ROS Statement: Those systems with pertinent positive or pertinent negative responses have been documented in the HPI. ROS Other: All systems not noted in ROS Statement are negative. Past Medical History Past Medical History: Hypertension Additional Past Medical History / Comment(s): anxiety, adhd, bipolar History of Any Multi-Drug Resistant Organisms: None Reported Past Surgical History: Orthopedic Surgery Additional Past Surgical History / Comment(s): ankle, knee, and left leg surgery Past Psychological History: Anxiety, Depression, Panic Disorder Smoking Status: Current every day smoker, Vaper Past Alcohol Use History: Abuse, Daily Past Drug Use History: Marijuana General Exam - General Exam Comments Initial Comments: This is a well-developed well-nourished awake alert male the smell of alcohol conjoiners on his breath General appearance: alert Head exam: Present: atraumatic, normocephalic, normal inspection Eye exam: Present: normal appearance, PERRL, EOMI. Absent: scleral icterus, conjunctival injection, periorbital swelling ENT exam: Present: normal exam, mucous membranes moist Neck exam: Present: normal inspection, full ROM, other. Absent: tenderness, meningismus, lymphadenopathy Respiratory exam: Present: normal lung sounds bilaterally. Absent: respiratory distress, wheezes, rales, rhonchi, stridor Cardiovascular Exam: Present: normal rhythm, tachycardia, normal heart sounds. Absent: systolic murmur, diastolic murmur, rubs, gallop, clicks GI/Abdominal exam: Present: soft, normal bowel sounds. Absent: distended, tenderness, guarding, rebound, rigid Extremities exam: Present: normal inspection, full ROM, normal capillary refill. Absent: tenderness, pedal edema, joint swelling, calf tenderness Back exam: Present: normal inspection Neurological exam: Present: alert, oriented X3, CN II-XII intact Psychiatric exam: Present: normal affect, manic, other (Somewhat manic) Skin exam: Present: warm, dry, intact, normal color, other (Multiple tattoos on the patient's face). Absent: rash Course Vital Signs 05/26/23 17:23 Temperature 97.9 F Pulse Rate 114 H Respiratory 18 Rate Blood Pressure 171/114 O2 Sat by Pulse 100 Oximetry Medical Decision Making - Medical Decision Making She was reevaluated on multiple occasions he was found to be intoxicated however he is awake alert oriented [address] without difficulty his significant other is agreed to take him home. Patient's inadequate condition to be discharged. W as pt. sent in by a medical professional or institution (, PA, ICE SKATING INSTRUCTOR, urgent care, hospital, or senior care...) When possible be specific @ -No Did you speak to anyone other than the patient for history (EMS, parent, family, police, friend...)? What history was obtained from this source @ -Patient's significant other Did you review nursing and triage notes (agree or disagree)? Why? @ -I reviewed and agree with nursing and triage notes Were old charts reviewed (outside hosp., previous admission, EMS record, old EKG, old radiological studies, urgent care reports/EKG's, senior care records)? Report findings @ -No old charts were reviewed Differential Diagnosis (chest pain, altered mental status, abdominal pain women, abdominal pain men, vaginal bleeding, weakness, fever, dyspnea, syncope, headache, dizziness, GI bleed, back pain, seizure, CVA, palpatations, mental health, musculoskeletal)? @ -Alcohol intoxication EKG interpreted by me (3pts min.). @ -Not done X-rays interpreted by me (1pt min.). @ -None done CT interpreted by me (1pt min.). @ -None done U/S interpreted by me (1pt. min.). @ -None done What testing was considered but not performed or refused? (CT, X-rays, U/S, labs)? Why? @ -None What meds were considered but not given or refused? Why? @ -None Did you discuss the management of the patient with other professionals (professionals i.e. , PA, ICE SKATING INSTRUCTOR, lab, RT, psych nurse, clinical social worker, cash register repairer, teacher, ict help desk officer, case resolution specialist)? Give summary @ -No Was smoking cessation discussed for >3mins.? @ -No Was critical care preformed (if so, how long)? @ -No Were there social determinants of health that impacted care today? How? ( Homelessness, low income, unemployed, alcoholism, drug addiction, transportation, low edu. Level, literacy, decrease access to med. care, fdc, rehab)? @ -Alcohol abuse, schizoaffective disorder, anxiety Was there de-escalation of care discussed even if they declined (Discuss DNR or withdrawal of care, Hospice)? DNR status @ -No What co-morbidities impacted this encounter? (DM, HTN, Smoking, COPD, CAD, Cancer, CVA, ARF, Chemo, Hep., AIDS, mental health diagnosis, sleep apnea, morbid obesity)? @ -His affected disorder, anxiety] Was patient admitted / discharged? Hospital course, mention meds given and route, prescriptions, significant lab abnormalities, going to OR and other per tinent info. @ -hospital course was discharged with the patient's significant other and mother his daughter Undiagnosed new problem with uncertain prognosis? @ -No Drug Therapy requiring intensive monitoring for toxicity (Heparin, Nitro, Insulin, Cardizem)? @ -No Were any procedures done? @ -No Diagnosis/symptom? @ -Alcohol intoxication, anxiety reaction Acute, or Chronic, or Acute on Chronic? @ -Acute Uncomplicated (without systemic symptoms) or Complicated (systemic symptoms)? @ -default Side effects of treatment? @ -No Exacerbation, Progression, or Severe Exacerbation? @ -No Poses a threat to life or bodily function? How? (Chest pain, [place], [place], pneumonia, PE, COPD, DKA, ARF, appy, cholecystitis, CVA, Diverticulitis, Homicidal, Suicidal, threat to staff... and all critical care pts) @ -No - Lab Data Result diagrams: 05/26/23 17:44 05/26/23 17:44 Lab Results 05/26/23 05/26/23 05/26/23 Range/Units 17:44 17:44 17:44 WBC 9.4 (3.8-10.6) k/uL RBC 5.65 (4.30-5.90) m/uL Hgb 18.8 H (13.0-17.5) gm/dL Hct 53.8 H (39.0-53.0) % MCV 95.2 (80.0-100.0) fL MCH 33.2 (25.0-35.0) pg MCHC 34.9 (31.0-37.0) g/dL RDW 12.7 (11.5-15.5) % Plt Count 295 (150-450) k/uL MPV 7.3 Neutrophils % 67 % Lymphocytes % 24 % Monocytes % 6 % Eosinophils % 1 % Basophils % 0 % Neutrophils # 6.3 (1.3-7.7) k/uL Lymphocytes # 2.3 (1.0-4.8) k/uL Monocytes # 0.6 (0-1.0) k/uL Eosinophils # 0.1 (0-0.7) k/uL Basophils # 0.0 (0-0.2) k/uL Sodium 145 (137-145) mmol/L Potassium 4.5 (3.5-5.1) mmol/L Chloride 107 (98-107) mmol/L Carbon Dioxide 22 (22-30) mmol/L Anion Gap 16 mmol/L BUN 12 (9-20) mg/dL Creatinine 1.23 (0.66-1.25) mg/dL Est GFR (CKD-EPI)AfAm >90 (>60 ml/min/1.73 sqM) Est GFR (CKD-EPI)NonAf 79 (>60 ml/min/1.73 sqM) Glucose 89 (74-99) mg/dL Calcium 9.7 (8.4-10.2) mg/dL Magnesium 2.4 H (1.6-2.3) mg/dL Total Bilirubin 0.5 (0.2-1.3) mg/dL AST 47 (17-59) U/L ALT 48 (4-49) U/L Alkaline Phosphatase 107 (38-126) U/L Creatine Kinase 141 (55-170) U/L Troponin I 0.018 (0.000-0.034) ng/mL Total Protein 7.9 (6.3-8.2) g/dL Albumin 5.0 (3.5-5.0) g/dL Lipase 82 (23-300) U/L TSH 1.000 (0.465-4.680) mIU/L Serum Alcohol 244 H* mg/dL Disposition Clinical Impression: Acute alcohol intoxication, Anxiety disorder, Seizure, Anxiety Disposition: HOME SELF-CARE Condition: Good Instructions (If sedation given, give patient instructions): Recurrent Seizures in Adults (ED), Alcohol Intoxication (ED), Abuse of Alcohol (ED) Is patient prescribed a controlled substance at d/c from ED?: No Referrals: None,Stated [Primary Care Provider] - 1-2 days Decision Date: 05/26/23 Decision Time: 19:35
[2023-05-26 20:05] VITALS: BP 135/97; PULSE 106; RESP 19
== END 2023-05-26 19:50 | disposition home or self-care (01) ==
LOC: EC 17:22
DX: F10.129 Alcohol abuse with intoxication, unspecified (principal); F41.9 Anxiety disorder, unspecified; G40.909 Epilepsy, unspecified, not intractable, without status epilepticus; I10 Essential (primary) hypertension; F32.A Depression, unspecified; F17.290 Nicotine dependence, other tobacco product, uncomplicated; F12.90 Cannabis use, unspecified, uncomplicated; Z79.899 Other long term (current) drug therapy; Z91.09 Other allergy status, other than to drugs and biological substances
CPT/HCPCS: 36415; 80053; 80320; 82550; 83690; 83735; 84443; 84484; 85025; 99284

== ENCOUNTER 2023-05-30 16:35 | Emergency (ER) | payer BC ==
[2023-05-30 18:24] LABS: Amphetamine Screen,Urine Not Detected (NotDetected); Barbiturate Screen,Urine Not Detected (NotDetected); Benzodiazepines Screen,Urine Not Detected (NotDetected); Cocaine Screen,Urine Not Detected (NotDetected); Methadone Screen, Urine Not Detected (NotDetected); Opiate Screen,Urine Not Detected (NotDetected); Oxycodone Screen, Urine Not Detected (NotDetected); Phencyclidine Screen,Urine Not Detected (NotDetected); Tricyclic Antidepressant,Urine Not Detected (NotDetected); Urn Cannabinoid Scrn Not Detected (NotDetected)
--- NOTE | 2023-05-30 19:07 | ED ---
Psych HPI - General Chief Complaint: Psychiatric Symptoms Stated Complaint: Mental Health Time Seen by Provider: 05/30/23 17:00 Source: patient, EMS, RN notes reviewed, old records reviewed Mode of arrival: EMS Limitations: no limitations - History of Present Illness Initial Comments: This is a 28-year-old male to the emergency department for evaluation. Patient presents today for evaluation of severe depression with suicidal thoughts. MD Complaint: suicidal ideation, feels depressed -: days(s) Associated Psychiatric Symptoms: depression, suicidal ideation Quality: getting worse Improves With: none Worsens With: none Context: recent alcohol abuse, not taking psychiatric medications Associated Symptoms: denies other symptoms Treatments Prior to Arrival: placed on mental health hold - Related Data Home Medications Medication Instructions Recorded Confirmed QUEtiapine FUMARATE 100 mg PO HS 03/01/23 05/30/23 Venlafaxine HCl ER [Effexor XR] 150 mg PO DAILY 03/01/23 05/30/23 Allergies Allergy/AdvReac Type Severity Reaction Status Date / Time adhesive AdvReac Rash/Hives Verified 05/30/23 16:49 Review of Systems ROS Statement: Those systems with pertinent positive or pertinent negative responses have been documented in the HPI. ROS Other: All systems not noted in ROS Statement are negative. Past Medical History Past Medical History: Hypertension Additional Past Medical History / Comment(s): anxiety, adhd, bipolar History of Any Multi-Drug Resistant Organisms: None Reported Past Surgical History: Orthopedic Surgery Additional Past Surgical History / Comment(s): ankle, knee, and left leg surgery Past Psychological History: Anxiety, Depression, Panic Disorder Smoking Status: Current every day smoker, Vaper Past Alcohol Use History: Abuse, Daily, Heavy Past Drug Use History: Marijuana General Exam Limitations: no limitations General appearance: alert, in no apparent distress Head exam: Present: atraumatic, normocephalic, normal inspection Eye exam: Present: normal appearance, PERRL, EOMI. Absent: scleral icterus, conjunctival injection, periorbital swelling ENT exam: Present: normal exam, mucous membranes moist Neck exam: Present: normal inspection. Absent: tenderness, meningismus, lymphadenopathy Respiratory exam: Present: normal lung sounds bilaterally. Absent: respiratory distress, wheezes, rales, rhonchi, stridor Cardiovascular Exam: Present: regular rate, normal rhythm, normal heart sounds. Absent: systolic murmur, diastolic murmur, rubs, gallop, clicks GI/Abdominal exam: Present: soft, normal bowel sounds. Absent: distended, tenderness, guarding, rebound, rigid Extremities exam: Present: normal inspection, full ROM, normal capillary refill. Absent: tenderness, pedal edema, joint swelling, calf tenderness Back exam: Present: normal inspection Neurological exam: Present: alert, oriented X3, CN II-XII intact Psychiatric exam: Present: normal affect, normal mood Skin exam: Present: warm, dry, intact, normal color. Absent: rash Course Vital Signs 05/30/23 16:40 Temperature 96.3 F L Pulse Rate 88 Respiratory 20 Rate Blood Pressure 153/113 O2 Sat by Pulse 98 Oximetry - Reevaluation(s) Reevaluation #1: 05/30/23 19:51 Medical records reviewed Medical Decision Making - Medical Decision Making 28 male the admitted for psychiatric evaluation and treatment - Lab Data Lab Results 05/30/23 Range/Units 17:49 Urine Opiates Screen Not Detected (NotDetected) Ur Oxycodone Screen Not Detected (NotDetected) Urine Methadone Screen Not Detected (NotDetected) Ur Propoxyphene Screen Not Detected (NotDetected) Ur Barbiturates Screen Not Detected (NotDetected) U Tricyclic Antidepress Not Detected (NotDetected) Ur Phencyclidine Scrn Not Detected (NotDetected) Ur Amphetamines Screen Not Detected (NotDetected) U Methamphetamines Scrn Not Detected (NotDetected) U Benzodiazepines Scrn Not Detected (NotDetected) Urine Cocaine Screen Not Detected (NotDetected) U Marijuana (THC) Screen Not Detected (NotDetected) Disposition Clinical Impression: Depression, Suicidal ideation Disposition: TRANSFER TO PSYCH HOSP/UNIT Condition: Fair Is patient prescribed a controlled substance at d/c from ED?: No Referrals: None,Stated [Primary Care Provider] - 1-2 days
[2023-05-30] MEDS ORDERED: NICOTINE 21MG/24HR PATCH TRANSDERM STA (20:22)
[2023-05-30] MEDS ORDERED: QUEtiapine 100 MG TAB PO STA (23:53)
[2023-05-31 00:32] LABS: Basophils # (A) 0.1 k/uL (0-0.2); Basophils % (A) 1 %; Eosinophils # (A) 0.1 k/uL (0-0.7); Eosinophils % (A) 1 %; HCT 51.6 % (39.0-53.0); HGB 17.6 gm/dL (13.0-17.5); Lymphocytes # (A) 1.5 k/uL (1.0-4.8); Lymphocytes % (A) 20 %; MCH 32.1 pg (25.0-35.0); MCHC 34.1 g/dL (31.0-37.0); MCV 94.2 fL (80.0-100.0); Mean Platelet Volume 7.4; Monocytes # (A) 0.6 k/uL (0-1.0); Monocytes % (A) 8 %; Neutrophils # (A) 5.2 k/uL (1.3-7.7); Neutrophils % (A) 69 %; Platelet Count 279 k/uL (150-450); RBC 5.48 m/uL (4.30-5.90); RDW 12.7 % (11.5-15.5); WBC 7.6 k/uL (3.8-10.6)
[2023-05-31 00:41] LABS: ALT 37 U/L (4-49); AST 32 U/L (17-59); African American GFR (CKD) >90 (>60 ml/min/1.73 sqM); Albumin 4.9 g/dL (3.5-5.0); Alkaline Phosphatase 102 U/L (38-126); Blood Urea Nitrogen 11 mg/dL (9-20); Calcium 9.6 mg/dL (8.4-10.2); Carbon Dioxide 30 mmol/L (22-30); Chloride 100 mmol/L (98-107); Glucose 99 mg/dL (74-99); Non-African American GFR(CKD) >90 (>60 ml/min/1.73 sqM); Potassium 4.7 mmol/L (3.5-5.1); Total Bilirubin 0.6 mg/dL (0.2-1.3); Total Protein 7.6 g/dL (6.3-8.2)
[2023-05-31 00:44] LABS: Appearance,Urine Clear (Clear); Bacteria,Urine Rare /hpf; Bilirubin,Urine Negative (Negative); Blood,Urine Negative (Negative); Color,Urine Colorless; Glucose,Urine (UA) Negative (Negative); Ketones,Urine Negative (Negative); Leukocyte Esterase,Urine Large (Negative); Mucus,Urine Rare /hpf; Nitrite,Urine Negative (Negative); PH, Urine 5.5 (5.0-8.0); Protein,Urine Negative (Negative); RBC,Urine 8 /hpf (0-5); Specific Gravity,Urine 1.006 (1.001-1.035); Squamous Epithelial Cell,Urine <1 /hpf (0-4); Urobilinogen,Urine <2.0 mg/dL (<2.0); WBC,Urine 7 /hpf (0-5)
[2023-05-31 01:02] VITALS: RESP 18
[2023-05-31 02:23] LABS: Anion Gap 13 mmol/L; Sodium 143 mmol/L (137-145)
[2023-05-31 09:35] VITALS: TEMP 97.6
[2023-05-31] MEDS ORDERED: VENLAFAXINE HCL ER 150 MG CAP PO STA (09:41)
[2023-05-31] MEDS ORDERED: hydrALAZINE HCL 20 MG/ML 1 ML VIAL IVP STA (15:01)
[2023-05-31 18:26] VITALS: PULSE 81
[2023-05-31 19:12] VITALS: BP 143/96
[2023-05-31] MEDS ORDERED: cloNIDine HCL 0.2 MG TAB PO STA (20:33)
== END 2023-05-31 20:36 ==
LOC: EC 16:35
DX: R45.851 Suicidal ideations (principal); F32.A Depression, unspecified; I10 Essential (primary) hypertension; F17.290 Nicotine dependence, other tobacco product, uncomplicated; F12.90 Cannabis use, unspecified, uncomplicated; Z88.8 Allergy status to other drugs, medicaments and biological substances; Z79.899 Other long term (current) drug therapy; Z20.822 Contact with and (suspected) exposure to COVID-19
CPT/HCPCS: 99285; 82075; 36415; 80053; 85025; 81001; 80306; 87635; 96374; S4990; J0360

== ENCOUNTER 2023-10-18 18:41 | Emergency (ER) | payer BC, OTHER ==
[2023-10-18 19:19] VITALS: TEMP 98.2
--- NOTE | 2023-10-18 19:23 | ED ---
General Adult HPI - General Chief complaint: Recheck/Abnormal Lab/Rx Stated complaint: fatigue weakness detoxing Time Seen by Provider: 10/18/23 19:14 Source: patient, RN notes reviewed, old records reviewed Mode of arrival: ambulatory Limitations: no limitations - History of Present Illness Initial comments: 28-year-old male presenting for medication refill. Patient states he ran out of his Seroquel 3 days ago and has been unable to get a refill secondary to termination of his relationship with [facility]. Patient states he takes 150 mg at bedtime. No other issues or complaints today. - Related Data Home Medications Medication Instructions Recorded Confirmed QUEtiapine FUMARATE 100 mg PO HS 03/01/23 05/30/23 Venlafaxine HCl ER [Effexor XR] 150 mg PO DAILY 03/01/23 05/30/23 Cephalexin [Keflex] 500 mg PO Q6HR 05/31/23 05/31/23 hydrOXYzine HCL [Hydroxyzine HCl] 25 mg PO DAILY PRN 05/31/23 05/31/23 Previous Rx's Medication Instructions Recorded QUEtiapine [SEROquel] 150 mg PO HS 7 Days #21 tab 10/18/23 Allergies Allergy/AdvReac Type Severity Reaction Status Date / Time adhesive AdvReac Rash/Hives Verified 10/18/23 18:54 Review of Systems ROS Statement: Those systems with pertinent positive or pertinent negative responses have been documented in the HPI. ROS Other: All systems not noted in ROS Statement are negative. Past Medical History Past Medical History: Hypertension Additional Past Medical History / Comment(s): anxiety, adhd, bipolar History of Any Multi-Drug Resistant Organisms: None Reported Past Surgical History: Orthopedic Surgery Additional Past Surgical History / Comment(s): ankle, knee, and left leg surgery Past Psychological History: Anxiety, Depression, Panic Disorder Smoking Status: Current every day smoker, Vaper Past Alcohol Use History: Abuse, Daily, Heavy Past Drug Use History: Marijuana General Exam Limitations: no limitations General appearance: alert, in no apparent distress Head exam: Present: atraumatic, normocephalic Eye exam: Present: normal appearance, PERRL ENT exam: Present: normal exam Neck exam: Present: normal inspection. Absent: tenderness, meningismus Respiratory exam: Present: normal lung sounds bilaterally. Absent: respiratory distress, wheezes Cardiovascular Exam: Present: regular rate, normal rhythm GI/Abdominal exam: Present: soft. Absent: distended Neurological exam: Present: alert, oriented X3 Psychiatric exam: Present: normal affect, normal mood Skin exam: Present: warm, dry, intact Course Vital Signs 10/18/23 18:52 Temperature 98.2 F Pulse Rate 98 Respiratory 20 Rate Blood Pressure 119/87 O2 Sat by Pulse 97 Oximetry Medical Decision Making - Medical Decision Making Was pt. sent in by a medical professional or institution (DEXTER Maldonado, MATTRESS WEAVER, urgent care, hospital, or assisted...) When possible be specific @ -No Did you speak to anyone other than the patient for history (EMS, parent, family, police, friend...)? What history was obtained from this source @ -No Did you review nursing and triage notes (agree or disagree)? Why? @ -I reviewed and agree with nursing and triage notes Were old charts reviewed (outside hosp., previous admission, EMS record, old EKG, old radiological studies, urgent care reports/EKG's, assisted records)? Report findings @ -No old charts were reviewed Differential Diagnosis (chest pain, altered mental status, abdominal pain women, abdominal pain men, vaginal bleeding, weakness, fever, dyspnea, syncope, headache, dizziness, GI bleed, back pain, seizure, CVA, palpatations, mental health, musculoskeletal)? @ -[Medication refill EKG interpreted by me (3pts min.). @ -As above X-rays interpreted by me (1pt min.). @ -None done CT interpreted by me (1pt min.). @ -None done U/S interpreted by me (1pt. min.). @ -None done What testing was considered but not performed or refused? (CT, X-rays, U/S, labs)? Why? @ -None What meds were considered but not given or refused? Why? @ -None Did you discuss the management of the patient with other professionals (professionals i.e. DEXTER Maldonado, MATTRESS WEAVER, lab, RT, psych nurse, licensed clinical social worker, iron guardrail installer, teacher, building drafting officer, rn case manager)? Give summary @ -No Was smoking cessation discussed for >3mins.? @ -No Was critical care preformed (if so, how long)? @ -No Were there social determinants of health that impacted care today? How? (Homelessness, low income, unemployed, alcoholism, drug addiction, transportation, low edu. Level, literacy, decrease access to med. care, fdc, rehab)? @ -No Was there de-escalation of care discussed even if they declined (Discuss DNR or withdrawal of care, Hospice)? DNR status @ -No What co-morbidities impacted this encounter? (DM, HTN, Smoking, COPD, CAD, Cancer, CVA, ARF, Chemo, Hep., AIDS, mental health diagnosis, sleep apnea, morbid obesity)? @ -None Was patient admitted / discharged? Hospital course, mention meds given and route, prescriptions, significant lab abnormalities, going to OR and other pertinent info. @ -28-year-old male requesting medication refill until he is able to reestablish at [facility]. Undiagnosed new problem with uncertain prognosis? @ -No Drug Therapy requiring intensive monitoring for toxicity (Heparin, Nitro, Insulin, Cardizem)? @ -No Were any procedures done? @ -No Diagnosis/symptom? @Medication refill Acute, or Chronic, or Acute on Chronic? @ -Default Uncomplicated (without systemic symptoms) or Complicated (systemic symptoms)? @ -Default Side effects of treatment? @ -No Exacerbation, Progression, or Severe Exacerbation? @ -No Poses a threat to life or bodily function? How? (Chest pain, [place], [place], pneumonia, PE, COPD, DKA, ARF, appy, cholecystitis, CVA, Diverticulitis, Homicidal, S uicidal, threat to staff... and all critical care pts) @ -No Disposition Clinical Impression: Encounter for medication refill Disposition: HOME SELF-CARE Condition: Fair Instructions (If sedation given, give patient instructions): Medicine Refill (ED) Additional Instructions: Please follow-up with [facility] as planned Prescriptions: QUEtiapine [SEROquel] 150 mg PO HS 7 Days #21 tab Is patient prescribed a controlled substance at d/c from ED?: No Referrals: None,Stated [Primary Care Provider] - 1-2 days Time of Disposition: 19:22
[2023-10-18 20:29] VITALS: BP 146/107; PULSE 91; RESP 18
== END 2023-10-18 19:58 | disposition home or self-care (01) ==
LOC: EC 18:41
DX: Z76.0 Encounter for issue of repeat prescription (principal); F17.290 Nicotine dependence, other tobacco product, uncomplicated; Z91.09 Other allergy status, other than to drugs and biological substances
CPT/HCPCS: 99284

== ENCOUNTER 2023-10-29 21:28 | Inpatient (IN) | payer BC, OTHER ==
[2023-10-29] MEDS: LORazepam 2 MG/ML INJ IM STA ×2 (22:00→23:45)
--- NOTE | 2023-10-29 22:06 | ED ---
Psych HPI - General Chief Complaint: Psychiatric Symptoms Stated Complaint: mental health Time Seen by Provider: 10/29/23 21:43 Source: patient, RN notes reviewed, old records reviewed Mode of arrival: ambulatory Limitations: no limitations - History of Present Illness Initial Comments: This is a 28-year-old male who comes in under police supervision with significant aggressive behavior. Patient is under petition by the police department for evaluation in regards to psychiatric evaluation, patient had an escalation situation where he was trying to kill himself both with a knife to his neck or running from the merchant tailor and suicide by cop examiner MD Complaint: suicidal ideation, feels depressed -: unknown Associated Psychiatric Symptoms: depression, suicidal ideation, racing thoughts History of same: Yes Quality: constant Improves With: none Worsens With: none Associated Symptoms: denies other symptoms Treatments Prior to Arrival: placed on mental health hold If Self Harm: admits thoughts of self harm - Related Data Home Medications Medication Instructions Recorded Confirmed QUEtiapine FUMARATE 100 mg PO HS 03/01/23 10/30/23 Venlafaxine HCl ER [Effexor XR] 150 mg PO DAILY 03/01/23 10/30/23 QUEtiapine [SEROquel] 50 mg PO HS 10/30/23 10/30/23 Venlafaxine HCl [Effexor XR] 75 mg PO DAILY 10/30/23 10/30/23 Allergies Allergy/AdvReac Type Severity Reaction Status Date / Time adhesive AdvReac Rash/Hives Verified 10/30/23 14:56 Review of Systems ROS Statement: Those systems with pertinent positive or pertinent negative responses have been documented in the HPI. ROS Other: All systems not noted in ROS Statement are negative. Past Medical History Past Medical History: Hypertension Additional Past Medical History / Comment(s): anxiety, adhd, bipolar History of Any Multi-Drug Resistant Organisms: None Reported Past Surgical History: Orthopedic Surgery Additional Past Surgical History / Comment(s): ankle, knee, and left leg surgery Past Psychological History: Anxiety, Depression, Panic Disorder Smoking Status: Current every day smoker, Vaper Past Alcohol Use History: Abuse, Daily, Heavy Past Drug Use History: Marijuana General Exam General appearance: alert, in no apparent distress Head exam: Present: atraumatic, normocephalic, normal inspection Eye exam: Present: normal appearance, PERRL, EOMI. Absent: scleral icterus, conjunctival injection, periorbital swelling ENT exam: Present: normal exam, mucous membranes moist Neck exam: Present: normal inspection. Absent: tenderness, meningismus, lymphadenopathy Respiratory exam: Present: normal lung sounds bilaterally. Absent: respiratory distress, wheezes, rales, rhonchi, stridor Cardiovascular Exam: Present: regular rate, normal rhythm, normal heart sounds. Absent: systolic murmur, diastolic murmur, rubs, gallop, clicks GI/Abdominal exam: Present: soft, normal bowel sounds. Absent: distended, tenderness, guarding, rebound, rigid Extremities exam: Present: normal inspection, full ROM, normal capillary refill. Absent: tenderness, pedal edema, joint swelling, calf tenderness Back exam: Present: normal inspection Neurological exam: Present: alert, oriented X3, CN II-XII intact Psychiatric exam: Present: normal affect, normal mood Skin exam: Present: warm, dry, intact, normal color. Absent: rash Course Vital Signs 10/29/23 10/30/23 10/30/23 21:46 06:23 10:20 Temperature 98.0 F 97.8 F 98.0 F Pulse Rate 113 H 84 106 H Pulse Rate [ Right Sitting] Respiratory 19 17 18 Rate Blood Pressure 153/104 135/92 144/95 Blood Pressure [Right Arm Sitting] O2 Sat by Pulse 95 98 99 Oximetry 10/30/23 13:05 Temperature 97.4 F L Pulse Rate Pulse Rate [ 92 Right Sitting] Respiratory 18 Rate Blood Pressure Blood Pressure 158/107 [Right Arm Sitting] O2 Sat by Pulse 99 Oximetry - Reevaluation(s) Reevaluation #1: 10/29/23 22:06 Record is reviewed Reevaluation #2: Medically clear for psychiatric evaluation Medical Decision Making - Medical Decision Making 28 male will be admitted for psychiatric evaluation and treatment - Lab Data Lab Results 10/30/23 Range/Units 11:03 SARS-CoV-2 (PCR) Not Detected (Not Detectd) Disposition Clinical Impression: Depression, Suicidal ideation, Suicide gesture, Social anxiety disorder, Alcohol use disorder, severe, in early remission, Major depressive disorder, recurrent, unspecified Disposition: TRANSFER TO PSYCH HOSP/UNIT Condition: Fair Is patient prescribed a controlled substance at d/c from ED?: No
[2023-10-29] MEDS: NICOTINE 7MG/24HR PATCH TRANSDERM STA (22:18)
[2023-10-30] MEDS: VENLAFAXINE HCL ER 150 MG CAP PO SCH (10:21)
[2023-10-30] MEDS: LORazepam 1 MG TAB PO STA ×2 (10:21→20:06)
[2023-10-30] MEDS: VENLAFAXINE HCL ER 75 MG CAP PO SCH (10:21)
[2023-10-30] MEDS ORDERED: IBUPROFEN 600 MG TAB PO PRN (12:19)
[2023-10-30] MEDS ORDERED: MAGNESIUM HYDROXIDE 2,400 MG/30 ML CUP PO PRN (12:19)
[2023-10-30] MEDS ORDERED: LORazepam 2 MG/ML INJ IM PRN (12:19)
[2023-10-30] MEDS ORDERED: ACETAMINOPHEN TAB 325 MG TAB PO PRN (12:19)
[2023-10-30] MEDS ORDERED: LORazepam 1 MG TAB PO PRN ×2 (12:19)
[2023-10-30] MEDS ORDERED: HALOPERIDOL LACTATE 5 MG/ML 1 ML VIAL IM PRN (12:19)
[2023-10-30] MEDS ORDERED: haloperidoL 5 MG TAB PO PRN (12:19)
[2023-10-30] MEDS ORDERED: MAG HYDROX/AL HYDROX/SIMETH 355 ML BOTTLE PO PRN (12:19)
[2023-10-30] MEDS: NICOTINE GUM (POLACRILEX) 2 MG GUM BUCCAL PRN (13:40)
[2023-10-30] MEDS: LORazepam 1 MG TAB PO PRN (13:41)
[2023-10-30 14:02] LABS: Amphetamine Screen,Urine Not Detected (NotDetected); Barbiturate Screen,Urine Not Detected (NotDetected); Benzodiazepines Screen,Urine Detected (NotDetected); Cocaine Screen,Urine Not Detected (NotDetected); Methadone Screen, Urine Not Detected (NotDetected); Opiate Screen,Urine Not Detected (NotDetected); Oxycodone Screen, Urine Not Detected (NotDetected); Phencyclidine Screen,Urine Not Detected (NotDetected); Tricyclic Antidepressant,Urine Not Detected (NotDetected); Urn Cannabinoid Scrn Not Detected (NotDetected)
[2023-10-30] MEDS ORDERED: ONDANSETRON 4 MG TAB PO PRN (19:57)
[2023-10-30] MEDS: QUEtiapine 100 MG TAB PO SCH (20:07)
[2023-10-30] MEDS ORDERED: QUEtiapine 50 MG TAB PO SCH (21:00)
[2023-10-30] MEDS ORDERED: QUEtiapine 100 MG TAB PO SCH (21:00)
[2023-10-31] MEDS ORDERED: NICOTINE 14MG/24HR PATCH TRANSDERM SCH (09:00)
[2023-10-31 09:12] LABS: Basophils % (A) 0 %; Eosinophils # (A) 0.1 k/uL (0-0.7); Eosinophils % (A) 2 %; HCT 51.1 % (39.0-53.0); HGB 17.4 gm/dL (13.0-17.5); Lymphocytes # (A) 1.3 k/uL (1.0-4.8); Lymphocytes % (A) 20 %; MCH 32.6 pg (25.0-35.0); MCHC 33.9 g/dL (31.0-37.0); MCV 95.9 fL (80.0-100.0); Mean Platelet Volume 7.7; Monocytes # (A) 0.4 k/uL (0-1.0); Monocytes % (A) 7 %; Neutrophils # (A) 4.7 k/uL (1.3-7.7); Neutrophils % (A) 71 %; Platelet Count 220 k/uL (150-450); RBC 5.33 m/uL (4.30-5.90); WBC 6.7 k/uL (3.8-10.6)
[2023-10-31 09:29] LABS: ALT 45 U/L (4-49); AST 50 U/L (17-59); African American GFR (CKD) >90 (>60 ml/min/1.73 sqM); Albumin 4.3 g/dL (3.5-5.0); Alkaline Phosphatase 99 U/L (38-126); Anion Gap 5 mmol/L; Blood Urea Nitrogen 13 mg/dL (9-20); Calcium 9.7 mg/dL (8.4-10.2); Carbon Dioxide 29 mmol/L (22-30); Chloride 103 mmol/L (98-107); Glucose 118 mg/dL (74-99); Non-African American GFR(CKD) 89 (>60 ml/min/1.73 sqM); Potassium 4.2 mmol/L (3.5-5.1); Sodium 137 mmol/L (137-145); Total Bilirubin 1.1 mg/dL (0.2-1.3); Total Protein 6.8 g/dL (6.3-8.2)
[2023-10-31] MEDS: VENLAFAXINE HCL ER 75 MG CAP PO STA (10:47)
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
[2023-10-31] MEDS: chlordiazePOXIDE 25 MG CAP PO SCH (14:15)
[2023-10-31 16:03] LABS: Chol/HDL Ratio 3.33 Ratio; LDL Cholesterol,Calculated 138.1 mg/dL (0.0-131.0)
[2023-10-31] MEDS: QUEtiapine 50 MG TAB PO SCH (20:02)
[2023-10-31] MEDS ORDERED: chlordiazePOXIDE 25 MG CAP PO SCH (21:00)
--- NOTE | 2023-11-01 00:20 | P.MDCNMH ---
History of Present Illness H&P Date: 11/01/23 Chief Complaint: Medical evaluation 28-year-old male with hypertension Patient coming in for evaluation of mental health under police custody due to aggressive behavior. Patient was threatening to cut his throat with a knife Currently patient denies any suicidal ideation Patient denies any fever chills coughing headache nausea vomiting abdominal pain chest pain trouble breathing changes in bowel or urinary habits review of systems Pertinent positives as noted in HPI. All other systems were reviewed and are negative on exam Constitutional: No acute distress, Eyes: Anicteric sclerae, moist conjunctiva, Pupils equal round reactive to light Lungs: Clear to auscultation Clear to percussion Normal respiratory effort, no accessory muscle use Cardiovascular: Heart regular in rate and rhythm, No murmurs, gallops, or rubs No peripheral edema Abdominal: Soft Nontender, no guarding, rebound or rigidity Abdomen moving with respiration Normoactive bowel sounds Extremities: No digital cyanosis No clubbing Pedal pulses intact and symmetrical Radial pulses intact and symmetrical No calf tenderness Psychiatric: Alert and oriented to person, place and time Neuro Muscles Strength 5/5 in all 4 extremities Sensation to light touch grossly present throughout Cranial nerves II-XII grossly intact Past Medical History Past Medical History: Hypertension Additional Past Medical History / Comment(s): anxiety, adhd, bipolar History of Any Multi-Drug Resistant Organisms: None Reported Past Surgical History: Orthopedic Surgery Additional Past Surgical History / Comment(s): ankle, knee, and left leg surgery Past Psychological History: Anxiety, Depression, Panic Disorder Smoking Status: Current every day smoker, Vaper Past Alcohol Use History: Abuse, Daily, Heavy Past Drug Use History: Marijuana Medications and Allergies Home Medications Medication Instructions Recorded Confirmed Type Nicotine Gum (Polacrilex) 4 mg BUCCAL Q2HR PRN #90 pieceofgum 11/02/23 Rx [Nicorette] QUEtiapine [SEROquel] 150 mg PO HS 30 Days #90 tab 11/02/23 Rx Venlafaxine HCl ER [Effexor XR] 150 mg PO DAILY 30 Days #30 cap 11/02/23 Rx Venlafaxine HCl [Effexor XR] 75 mg PO DAILY 30 Days #30 cap 11/02/23 Rx Allergies Allergy/AdvReac Type Severity Reaction Status Date / Time adhesive AdvReac Rash/Hives Verified 10/30/23 14:56 Physical Exam Vitals: Vital Signs Temp Pulse Resp BP Pulse Ox 10/31/23 06:47 98 F 87 16 129/78 99 Cranial Nerve Examination - Cranial Nerves Cranial Nerve II- Optic: Intact Cranial Nerve III- Oculomotor: Intact Cranial Nerve IV- Trochlear: Intact Cranial Nerve V- Trigeminal: Intact Cranial Nerve - Abducens: Intact Cranial Nerve VII- Facial: Intact Cranial Nerve VIII- Auditory: Intact Cranial Nerve IX- Glossopharyngeal: Intact Cranial Nerve X- Vagus: Intact Cranial Nerve XI- Accessory: Intact Cranial Nerve XII- Hypoglossal: Intact Results CBC & Chem 7: 10/31/23 08:52 10/31/23 08:51 Labs: Abnormal Lab Results - Last 24 Hours (Table) 10/31/23 Range/Units 08:51 Glucose 118 H (74-99) mg/dL Cholesterol 230.00 H (0.00-200.00) mg/dL LDL Cholesterol, Calc 138.1 H (0.0-131.0) mg/dL HDL Cholesterol 69.10 H (40.00-60.00) mg/dL Assessment and Plan Assessment: Depression suicidal ideation Management per psych Hypertension Blood pressure controlled Patient is not on medication Alcohol abuse Benzos per CIWA scale Thiamine daily Monitor for alcohol withdrawal Hyperlipidemia Consider lifestyle modification LDL 138 Patient stable from medical standpoint Thank you for this consultation
[2023-11-01] MEDS: VENLAFAXINE HCL ER 75 MG CAP PO SCH (09:13)
--- NOTE | 2023-11-01 15:25 | P.PN ---
Progress Note - Text Progress Note Date: 11/01/23 In-Patient Follow-up Chief Complaint: No complains Subjective: The patient noted that he is doing crossword puzzles to keep him engaged. He noted that since he has been reinstated on his medication his mood has improved considerable. He is attending groups. He noted that he missed a morning group the day he came here. He noted that he has been participating in the groups. He reports interacting with staff and peers. He has not had any behavioral issues. He has not been taking any prn meds for agitation or anxiety. The patient noted that he had a job for 7 years and lost it. The patient noted that he has two job to go to. He has decided to go back to his old boss at [employer] in [place]. The patient gave consent to speak his new boss if needed. His name is Jenny Davis. The patient intends to go and live with his old girlfriend, who is his daughters mother. The social scientist spoke with the Janice and she to willing to have him live with her. The patient is working with social scientist to get an appointment at [facility]. Leading questions: The patient denied Depression and Anxiety. Denied SI or HI. Denied symptoms consistent with psychosis Sleep and Appetite: Good Behavioral Changes: None PRN meds/isolation/restraints/ change in status: None Change in medical condition: No change. Change in medications: No change. The patient Librium to be reduced to 25 mg and the stopped. Side effects from Medications: None. Objective- MSE: Alert and attentive. Orientation times three. Dressed and Groomed: Appropriately. Pleasant and cooperative. Psychomotor Activity: Normal. Speech: Normal in tone, quality, and quantity. Mood: Good. Affect: Appropriate to mood. SI or HI: None. Perceptual disturbance: None. Thought Content: No paranoia or other delusional thinking noted. Thought Process: Normal. Cognition: Intact Judgment and Insight: Good AIMS: Normal. Labs: Reviewed with patients. Vital signs: Diagnosis: No change Plan and recommendation: Continue current Medications. Reduce Librium to 25 mg qd and the D/C Monitor MS and side effects of medications and adjust medications accordingly. Provide supportive psychotherapy. The patient provided psychoeducation. The patient provided Substance abuse counseling. Smoke cessation therapy. The patient to continue attending the [facility] activities. Reviewed labs with patient. Counselled and suggested to make an appointment with PCP for regular follow. Discussed with the social scientist regarding safe disposition and out-patient appointment. Will Consider discharge 11/02/2023, if no change in medical condition and MS. Medication Consent with explanation of risk/benefits and side effects: Explained and obtained.
[2023-11-02] MEDS: NICOTINE GUM (POLACRILEX) 2 MG GUM BUCCAL PRN (00:14)
[2023-11-02 07:41] VITALS: RESP 16; TEMP 97.7
[2023-11-02] MEDS: chlordiazePOXIDE 25 MG CAP PO ONE (08:24)
[2023-11-02 12:56] VITALS: BP 135/90; PULSE 103
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
== END 2023-11-02 13:03 | disposition home or self-care (01) | DRG 882 ==
LOC: EC 21:28 → 3MHU 10-30 12:06
PROVIDERS: ADMIT Psychiatry & Neurology Psychiatry; ATTEND Psychiatry & Neurology Psychiatry
DX: F43.29 Adjustment disorder with other symptoms (principal); F10.239 Alcohol dependence with withdrawal, unspecified; R45.851 Suicidal ideations; E78.5 Hyperlipidemia, unspecified; F17.290 Nicotine dependence, other tobacco product, uncomplicated; F31.81 Bipolar II disorder; F40.10 Social phobia, unspecified; F43.10 Post-traumatic stress disorder, unspecified; I10 Essential (primary) hypertension; R45.1 Restlessness and agitation; Z55.5 Less than a high school diploma; Z65.3 Problems related to other legal circumstances; Z81.8 Family history of other mental and behavioral disorders; Z79.899 Other long term (current) drug therapy; Z91.410 Personal history of adult physical and sexual abuse; Z11.52 Encounter for screening for COVID-19; Z28.310 Unvaccinated for COVID-19; Z28.21 Immunization not carried out because of patient refusal
CPT/HCPCS: 80053; 80061; 80306; 82075; 83036; 84443; 85025; 87635; 93005; 96372; 99285

== ENCOUNTER 2023-11-09 18:57 | Emergency (ER) | payer BC, OTHER ==
--- NOTE | 2023-11-09 19:52 | ED ---
Alcohol HPI - General Chief Complaint: Alcohol Stated Complaint: Withdrawls-Siezures Time Seen by Provider: 11/09/23 19:51 Source: patient Limitations: no limitations - History of Present Illness Initial Comments: 28-year-old male presenting chief complaint of alcohol withdrawal. Patient normally drinks 24 beers per day, his last drink was about 3 hours prior to arrival. He admits to nausea and vomiting. 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 No seizures today. He was seen at a different facility earlier this week for alcohol withdrawal. Denies chest pain, difficulty breathing, abdominal pain, visual or auditory hallucinations, numbness, tingling, weakness. - Related Data Previous Rx's Medication Instructions Recorded Nicotine Gum (Polacrilex) 4 mg BUCCAL Q2HR PRN #90 pieceofgum 11/02/23 [Nicorette] QUEtiapine [SEROquel] 150 mg PO HS 30 Days #90 tab 11/02/23 Venlafaxine HCl ER [Effexor XR] 150 mg PO DAILY 30 Days #30 cap 11/02/23 Venlafaxine HCl [Effexor XR] 75 mg PO DAILY 30 Days #30 cap 11/02/23 LORazepam [Ativan] 1 mg PO TID PRN 3 Days #9 tab 11/10/23 Ondansetron Odt [Zofran Odt] 4 mg PO Q8HR PRN #20 tab 11/10/23 Allergies Allergy/AdvReac Type Severity Reaction Status Date / Time adhesive AdvReac Rash/Hives Verified 11/09/23 19:50 Review of Systems ROS Statement: Those systems with pertinent positive or pertinent negative responses have been documented in the HPI. ROS Other: All systems not noted in ROS Statement are negative. Past Medical History Past Medical History: Hypertension Additional Past Medical History / Comment(s): anxiety, adhd, bipolar History of Any Multi-Drug Resistant Organisms: None Reported Past Surgical History: Orthopedic Surgery Additional Past Surgical History / Comment(s): ankle, knee, and left leg surgery Past Psychological History: Anxiety, Depression, Panic Disorder Smoking Status: Current every day smoker, Vaper Past Alcohol Use History: Abuse, Daily, Heavy Past Drug Use History: Marijuana General Exam - General Exam Comments Initial Comments: Visual Physical Exam Vital signs reviewed General: Well-appearing, nontoxic, no acute distress. Head: Normocephalic, atraumatic Eyes: PERRLA, EOMI ENT: Airway patent Chest: Nonlabored breathing Skin: No visual rash, normal skin tone Neuro: Alert and oriented 3 Musculoskeletal: No gross abnormalities Limitations: no limitations General appearance: alert, in no apparent distress Head exam: Present: atraumatic, normocephalic Eye exam: Present: normal appearance, EOMI Neck exam: Present: normal inspection. Absent: meningismus Respiratory exam: Present: normal lung sounds bilaterally. Absent: respiratory distress, wheezes, rales, rhonchi, stridor Cardiovascular Exam: Present: regular rate, normal rhythm, normal heart sounds. Absent: systolic murmur, diastolic murmur, rubs, gallop, clicks Neurological exam: Present: alert, oriented X3 Psychiatric exam: Present: normal affect, normal mood Skin exam: Present: warm, dry Course Vital Signs 11/09/23 11/10/23 19:45 02:04 Temperature 97.8 F Pulse Rate 101 H 80 Respiratory 22 18 Rate Blood Pressure 139/80 147/100 O2 Sat by Pulse 97 99 Oximetry Medical Decision Making - Medical Decision Making I performed the quick note portion of this visit, electronically signed Kendrick Preston PA-C Was pt. sent in by a medical professional or institution (DEXTER Maldonado, PIPELINE GANG SUPERVISOR, urgent care, hospital, or half-way...) When possible be specific @ -No Did you speak to anyone other than the patient for history (EMS, parent, family, police, friend...)? What history was obtained from this source @ -No Did you review nursing and triage notes (agree or disagree)? Why? @ -I reviewed and agree with nursing and triage notes Were old charts reviewed (outside hosp., previous admission, EMS record, old EKG, old radiological studies, urgent care reports/EKG's, half-way records)? Report findings @ -No old charts were reviewed Differential Diagnosis (chest pain, altered mental status, abdominal pain women, abdominal pain men, vaginal bleeding, weakness, fever, dyspnea, syncope, headache, dizziness, GI bleed, back pain, seizure, CVA, palpatations, mental health, musculoskeletal)? @ -Differential includes alcohol withdrawal, delirium tremens, this is not an all-inclusive list EKG interpreted by me (3pts min.). @ -As above X-rays interpreted by me (1pt min.). @ -None done CT interpreted by me (1pt min.). @ -None done U/S interpreted by me (1pt. min.). @ -None done What testing was considered but not performed or refused? (CT, X-rays, U/S, labs)? Why? @ -None What meds were considered but not given or refused? Why? @ -None Did you discuss the management of the patient with other professionals (professionals i.e. DrSandra, PA, PIPELINE GANG SUPERVISOR, lab, RT, psych nurse, social work specialist, corporate logistics manager, teacher, antisubmarine weapons officer, manager case management)? Give summary @ -No Was smoking cessation discussed for >3mins.? @ -No Was critical care preformed (if so, how long)? @ -No Were there social determinants of health that impacted care today? How? (Homelessness, low income, unemployed, alcoholism, drug addiction, transportation, low edu. Level, literacy, decrease access to med. care, residential, rehab)? @ -No Was there de-escalation of care discussed even if they declined (Discuss DNR or withdrawal of care, Hospice)? DNR status @ -No What co-morbidities impacted this encounter? (DM, HTN, Smoking, COPD, CAD, Cancer, CVA, ARF, Chemo, Hep., AIDS, mental health diagnosis, sleep apnea, morbid obesity)? @ -None Was patient admitted / discharged? Hospital course, mention meds given and route, prescriptions, significant lab abnormalities, going to OR and other p ertinent info. @ -28-year-old male presenting with chief complaint of alcohol withdrawal. Normally drinks 24 beers per day, last drink was a few hours ago. Patient is initially evaluated as a quick note. Myself. Labs are ordered. Serum alcohol 69. Remainder of CBC and CMP are essentially unremarkable. Patient is later placed in an exam room and evaluated by myself. CIWA score is 3. Patient is given 1 mg of Ativan. She will be prescribed a short course of Ativan for home for his withdrawal symptoms. Given his low CIWA score do not believe that he requires admission at this time. He is educated on today's findings and treatment plan for home. Discharged home. Follow-up with PCP. Report back to ER with any new or worsening symptoms. Discussed return parameters and answered all questions. Patient conveyed verbal understanding and agreed to the plan. I discussed this case in detail with my attending Dr. Monroe Undiagnosed new problem with uncertain prognosis? @ -No Drug Therapy requiring intensive monitoring for toxicity (Heparin, Nitro, Insulin, Cardizem)? @ -No Were any procedures done? @ -No Diagnosis/symptom? @ -Alcohol withdrawal Acute, or Chronic, or Acute on Chronic? @ -Acute Uncomplicated (without systemic symptoms) or Complicated (systemic symptoms)? @ -Uncomplicated Side effects of treatment? @ -No Exacerbation, Progression, or Severe Exacerbation? @ -No Poses a threat to life or bodily function? How? (Chest pain, [place], [place], pneumonia, PE, COPD, DKA, ARF, appy, cholecystitis, CVA, Diverticulitis, Homicidal, Suicidal, threat to staff... and all critical care pts) @ -Low likelihood at this time - Lab Data Result diagrams: 11/09/23 20:20 11/09/23 20:20 Lab Results 11/09/23 11/09/23 Range/Units 20:20 20:20 WBC 9.6 (3.8-10.6) k/uL RBC 5.40 (4.30-5.90) m/uL Hgb 17.9 H (13.0-17.5) gm/dL Hct 52.0 (39.0-53.0) % MCV 96.4 (80.0-100.0) fL MCH 33.1 (25.0-35.0) pg MCHC 34.4 (31.0-37.0) g/dL RDW 12.6 (11.5-15.5) % Plt Count 281 (150-450) k/uL MPV 7.1 Neutrophils % 73 % Lymphocytes % 18 % Monocytes % 6 % Eosinophils % 1 % Basophils % 0 % Neutrophils # 7.0 (1.3-7.7) k/uL Lymphocytes # 1.7 (1.0-4.8) k/uL Monocytes # 0.6 (0-1.0) k/uL Eosinophils # 0.1 (0-0.7) k/uL Basophils # 0.0 (0-0.2) k/uL Sodium 141 (137-145) mmol/L Potassium 5.0 (3.5-5.1) mmol/L Chloride 104 (98-107) mmol/L Carbon Dioxide 27 (22-30) mmol/L Anion Gap 10 mmol/L BUN 14 (9-20) mg/dL Creatinine 0.99 (0.66-1.25) mg/dL Est GFR (CKD-EPI)AfAm >90 (>60 ml/min/1.73 sqM) Est GFR (CKD-EPI)NonAf >90 (>60 ml/min/1.73 sqM) Glucose 90 (74-99) mg/dL Calcium 9.9 (8.4-10.2) mg/dL Phosphorus 3.2 (2.5-4.5) mg/dL Magnesium 2.2 (1.6-2.3) mg/dL Total Bilirubin 0.7 (0.2-1.3) mg/dL AST 41 (17-59) U/L ALT 44 (4-49) U/L Alkaline Phosphatase 117 (38-126) U/L Total Protein 8.2 (6.3-8.2) g/dL Albumin 5.3 H (3.5-5.0) g/dL Amylase 62 (30-110) U/L Lipase 66 (23-300) U/L Serum Alcohol 69 mg/dL Disposition Clinical Impression: Alcohol withdrawal syndrome Disposition: HOME SELF-CARE Condition: Good Instructions (If sedation given, give patient instructions): Alcohol Withdrawal (ED) Additional Instructions: Follow-up with PCP. Report back to ER with any new or worsening symptoms. Prescriptions: LORazepam [Ativan] 1 mg PO TID PRN 3 Days #9 tab PRN Reason: Alcohol Withdrawal Ondansetron Odt [Zofran Odt] 4 mg PO Q8HR PRN #20 tab PRN Reason: Nausea Is patient prescribed a controlled substance at d/c from ED?: Yes When asked, does pt state using other controlled substances?: No If prescribed controlled substance>3 days was MAPS reviewed?: Prescribed <3 Days Referrals: None,Stated [Primary Care Provider] - 1-2 days Vladimir Jerez MD [STAFF PHYSICIAN] - 1-2 days Time of Disposition: 01:52
[2023-11-09 20:14] VITALS: TEMP 97.8
[2023-11-09 20:39] LABS: Basophils % (A) 0 %; Eosinophils # (A) 0.1 k/uL (0-0.7); Eosinophils % (A) 1 %; HGB 17.9 gm/dL (13.0-17.5); Lymphocytes # (A) 1.7 k/uL (1.0-4.8); Lymphocytes % (A) 18 %; MCH 33.1 pg (25.0-35.0); MCHC 34.4 g/dL (31.0-37.0); MCV 96.4 fL (80.0-100.0); Mean Platelet Volume 7.1; Monocytes # (A) 0.6 k/uL (0-1.0); Monocytes % (A) 6 %; Neutrophils % (A) 73 %; Platelet Count 281 k/uL (150-450); RDW 12.6 % (11.5-15.5); WBC 9.6 k/uL (3.8-10.6)
[2023-11-09 20:49] LABS: ALT 44 U/L (4-49); AST 41 U/L (17-59); African American GFR (CKD) >90 (>60 ml/min/1.73 sqM); Albumin 5.3 g/dL (3.5-5.0); Alcohol 69 mg/dL; Alkaline Phosphatase 117 U/L (38-126); Amylase 62 U/L (30-110); Anion Gap 10 mmol/L; Blood Urea Nitrogen 14 mg/dL (9-20); Calcium 9.9 mg/dL (8.4-10.2); Carbon Dioxide 27 mmol/L (22-30); Chloride 104 mmol/L (98-107); Glucose 90 mg/dL (74-99); Lipase 66 U/L (23-300); Magnesium 2.2 mg/dL (1.6-2.3); Non-African American GFR(CKD) >90 (>60 ml/min/1.73 sqM); Phosphorus 3.2 mg/dL (2.5-4.5); Sodium 141 mmol/L (137-145); Total Bilirubin 0.7 mg/dL (0.2-1.3); Total Protein 8.2 g/dL (6.3-8.2)
[2023-11-10] MEDS: LORazepam 1 MG TAB PO STA (01:17)
[2023-11-10] MEDS: ONDANSETRON ODT 4 MG TAB PO STA (01:17)
[2023-11-10 02:11] VITALS: BP 147/100; PULSE 80; RESP 18
== END 2023-11-10 02:07 | disposition home or self-care (01) ==
LOC: EC 18:57
DX: F10.239 Alcohol dependence with withdrawal, unspecified (principal); F17.290 Nicotine dependence, other tobacco product, uncomplicated; Y90.3 Blood alcohol level of 60-79 mg/100 ml
CPT/HCPCS: 36415; 80053; 82150; 83690; 83735; 84100; 85025; 99284; G0480; 80320

== ENCOUNTER 2024-07-03 12:09 | Emergency (ER) | payer MEDICAID ==
[2024-07-03 12:41] LABS: Appearance,Urine Clear (Clear); Bilirubin,Urine Negative (Negative); Blood,Urine Negative (Negative); Color,Urine Colorless; Glucose,Urine (UA) Negative (Negative); Ketones,Urine Negative (Negative); Leukocyte Esterase,Urine Negative (Negative); Nitrite,Urine Negative (Negative); PH, Urine 5.5 (5.0-8.0); Protein,Urine Negative (Negative); Specific Gravity,Urine 1.008 (1.001-1.035); Urobilinogen,Urine <2.0 mg/dL (<2.0)
--- NOTE | 2024-07-03 12:49 | ED ---
General Adult HPI - General Chief complaint: Back Pain/Injury Stated complaint: Abdominal Pain Time Seen by Provider: 07/03/24 12:28 Source: patient, RN notes reviewed, old records reviewed Mode of arrival: ambulatory Limitations: no limitations - History of Present Illness Initial comments: 29-year-old male with a several month history of right flank pain. No hematuria or dysuria. No specific injury. Patient denies nausea vomiting. He states has been eating and drinking normally. Pain is worse with movement. - Related Data Previous Rx's Medication Instructions Recorded Nicotine Gum (Polacrilex) 4 mg BUCCAL Q2HR PRN #90 pieceofgum 11/02/23 [Nicorette] QUEtiapine [SEROquel] 150 mg PO HS 30 Days #90 tab 11/02/23 Venlafaxine HCl ER [Effexor XR] 150 mg PO DAILY 30 Days #30 cap 11/02/23 Venlafaxine HCl [Effexor XR] 75 mg PO DAILY 30 Days #30 cap 11/02/23 LORazepam [Ativan] 1 mg PO TID PRN 3 Days #9 tab 11/10/23 Ondansetron Odt [Zofran Odt] 4 mg PO Q8HR PRN #20 tab 11/10/23 Allergies Allergy/AdvReac Type Severity Reaction Status Date / Time adhesive AdvReac Rash/Hives Verified 11/09/23 19:50 Review of Systems ROS Statement: Those systems with pertinent positive or pertinent negative responses have been documented in the HPI. ROS Other: All systems not noted in ROS Statement are negative. Past Medical History Past Medical History: Hypertension Additional Past Medical History / Comment(s): anxiety, adhd, bipolar History of Any Multi-Drug Resistant Organisms: None Reported Past Surgical History: Orthopedic Surgery Additional Past Surgical History / Comment(s): ankle, knee, and left leg surgery Past Psychological History: Anxiety, Depression, Panic Disorder Smoking Status: Current every day smoker, Vaper Past Alcohol Use History: Abuse, Daily, Heavy Past Drug Use History: Marijuana General Exam Limitations: no limitations General appearance: alert, in no apparent distress Head exam: Present: atraumatic, normocephalic Eye exam: Present: normal appearance, PERRL ENT exam: Present: normal exam Neck exam: Present: normal inspection Respiratory exam: Present: normal lung sounds bilaterally. Absent: respiratory distress, wheezes Cardiovascular Exam: Present: regular rate, normal rhythm GI/Abdominal exam: Present: soft. Absent: distended, tenderness Extremities exam: Present: normal inspection Back exam: Present: normal inspection. Absent: CVA tenderness (R), CVA tenderness (L) Neurological exam: Present: alert, oriented X3 Psychiatric exam: Present: normal affect, normal mood Skin exam: Present: warm, dry, intact Course Vital Signs 07/03/24 12:23 Temperature 98.7 F Pulse Rate 81 Respiratory 20 Rate Blood Pressure 122/86 O2 Sat by Pulse 99 Oximetry Medical Decision Making - Medical Decision Making Was pt. sent in by a medical professional or institution (, PA, ROLLOUT MANAGER, urgent care, hospital, or penitentiary...) When possible be specific @ -No Did you speak to anyone other than the patient for history (EMS, parent, family, police, friend...)? What history was obtained from this source @ -No Did you review nursing and triage notes (agree or disagree)? Why? @ -I reviewed and agree with nursing and triage notes Were old charts reviewed (outside hosp., previous admission, EMS record, old EKG, old radiological studies, urgent care reports/EKG's, penitentiary records)? Report findings @ -No old charts were reviewed Differential Musculoskeletal Muscular strain, contusion, ligament sprain, fracture, arthritis, septic arthritis, bursitis, cellulitis, muscle spasm, nerve compression, DVT, arterial occlusion, herpes zoster, electrolyte abnormality, tumor.... This is not meant to be in all inclusive list EKG interpreted by me (3pts min.). @ -As above X-rays interpreted by me (1pt min.). @ -None done CT interpreted by me (1pt min.). @ -None done U/S interpreted by me (1pt. min.). @ -None done What testing was considered but not performed or refused? (CT, X-rays, U/S, labs)? Why? @ -None What meds were considered but not given or refused? Why? @ -None Did you discuss the management of the patient with other professionals (professionals i.e. , PA, ROLLOUT MANAGER, lab, RT, psych nurse, social media marketer, relay dispatcher, teacher, energy control officer, case worker)? Give summary @ -No Was smoking cessation discussed for >3mins.? @ -No Was critical care preformed (if so, how long)? @ -No Were there social determinants of health that impacted care today? How? (Homelessness, low income, unemployed, alcoholism, drug addiction, transportation, low edu. Level, literacy, decrease access to med. care, senior living, rehab)? @ -No Was there de-escalation of care discussed even if they declined (Discuss DNR or withdrawal of care, Hospice)? DNR status @ -No What co-morbidities impacted this encounter? (DM, HTN, Smoking, COPD, CAD, Cancer, CVA, ARF, Chemo, Hep., AIDS, mental health diagnosis, sleep apnea, morbid obesity)? @ -None Was patient admitted / discharged? Hospital course, mention meds given and route, prescriptions, significant lab abnormalities, going to OR and other pertinent info. @ 29-year-old male with a 2-month history of right sided back pain. Normal gait. No specific injury. Urinalysis negative for hematuria or signs of infection. Patient should follow closely with his primary care provider. Undiagnosed new problem with uncertain prognosis? @ -No Drug Therapy requiring intensive monitoring for toxicity (Heparin, Nitro, Insulin, Cardizem)? @ -No Were any procedures done? @ -No Diagnosis/symptom? @ -Back pain Acute, or Chronic, or Acute on Chronic? @ -[Chronic Uncomplicated (without systemic symptoms) or Complicated (systemic symptoms)? @ -Default Side effects of treatment? @ -No Exacerbation, Progression, or Severe Exacerbation? @ -No Poses a threat to life or bodily function? How? (Chest pain, [place], [place], pneumonia, PE, COPD, DKA, ARF, appy, cholecystitis, CVA, Diverticulitis, Homicidal, Suicidal, threat to staff... and all critical care pts) @ -No - Lab Data Lab Results 07/03/24 Range/Units 12:29 Urine Color Colorless Urine Appearance Clear (Clear) Urine pH 5.5 (5.0-8.0) Ur Specific [place] 1.008 (1.001-1.035) Urine Protein Negative (Negative) Urine Glucose (UA) Negative (Negative) Urine Ketones Negative (Negative) Urine Blood Negative (Negative) Urine Nitrite Negative (Negative) Urine Bilirubin Negative (Negative) Urine Urobilinogen <2.0 (<2.0) mg/dL Ur Leukocyte Esterase Negative (Negative) Disposition Clinical Impression: Mid back pain Disposition: HOME SELF-CARE Condition: Fair Instructions (If sedation given, give patient instructions): Acute Low Back Pain (ED) Is patient prescribed a controlled substance at d/c from ED?: No Referrals: None,Stated [Primary Care Provider] - 1-2 days [facility] [[facility]FF] - 1-2 days Johnathan Malone MD [STAFF PHYSICIAN] - 1-2 days Time of Disposition: 13:00
[2024-07-03 13:18] VITALS: BP 125/88; PULSE 78; RESP 18; TEMP 98.3
== END 2024-07-03 13:18 | disposition home or self-care (01) ==
LOC: EC 12:09
DX: M54.9 Dorsalgia, unspecified (principal); F17.290 Nicotine dependence, other tobacco product, uncomplicated
CPT/HCPCS: 81003; 99284